=== PATIENT | female | born 1930 | race Caucasian/White ===

== ENCOUNTER 2017-07-20 21:06 | Observation (INO) | payer OTHER, BC ==
--- NOTE | 2017-07-21 00:40 | PDOC ---
History of Present Illness - General History Source: Patient Exam Limitations: No Limitations - History of Present Illness Initial Comments: 07/21/17 01:49 Patient is a 87 year old female with a significant past medical history of AFIB , HTN, esophageal varices, cirrhosis, hypothyroidism, and Peptic Ulcer Disease, who presents to the ED with complaints of bloody stool that began yesterday afternoon. Patient reports experiencing an intermittent cough for 1 week. Patient [place] and beginning to experience diffuse abdominal pain as well as bright red blood in stool. She reports experiencing 3 episodes of loose bright red stool yesterday and today. Patient reports experiencing left lower quadrant and right upper quadrant pain secondary to bloody stool. She reports PCP wanted her to receive a CT scan when she came into the ED. Denies nausea, vomiting. Denies chest pain, SOB. Denies change in appetite. Denies contact with sick individuals, out of state travelling. Denies any other symptoms. Allergies: bee venom (honey bee), meloxicam [From [employer]], shellfish derived, Social history: No smoking. No alcohol. No illicit drugs. Surgical history: Cholecystectomy PMD: Dr. Vish Adam. <Sean Mullen - Last Filed: 07/21/17 01:57> <Negar Feranndez - Last Filed: 07/22/17 02:20> - General Chief Complaint: Rectal Bleed Stated Complaint: BLOODY STOOL Time Seen by Provider: 07/21/17 00:09 Past History <Sean Mullen - Last Filed: 07/21/17 01:57> - Past Medical History Anemia: No Asthma: No Cancer: No Cardiac Disorders: (palpitations;ASHD) CVA: No COPD: No CHF: No Dementia: No Diabetes: No GI Disorders: Yes (gerd;PORTAL GASTROPATHY;DUODENAL ULCER;GASTRIC POLYPS;COLON POLYPS) Disorders: No HTN: Yes Hypercholesterolemia: Yes Liver Disease: Yes (liver cirrhosis) Seizures: No Thyroid Disease: Yes (hypothyroid) - Surgical History Abdominal Surgery: No Appendectomy: No Cardiac Surgery: No Cholecystectomy: Yes Lung Surgery: No Neurologic Surgery: Yes (lumbar compression fx, herniated disc) Orthopedic Surgery: Yes (RIGHT WRIST FX) - Immunization History Immunization Up to Date: Yes - Suicide/Smoking/Psychosocial Hx Smoking History: Never smoked Have you smoked in the past 12 months: No Number of Cigarettes Smoked Daily: 0 Information on smoking cessation initiated: No Hx Alcohol Use: No Drug/Substance Use Hx: No Substance Use Type: None Hx Substance Use Treatment: No <Negar Fernandez - Last Filed: 07/22/17 02:20> - Past Medical History Allergies/Adverse Reactions: Allergies Allergy/AdvReac Type Severity Reaction Status Date / Time meloxicam [From Mobic] Allergy Severe Swelling Verified 07/21/17 00:38 shellfish derived Allergy Severe Swelling Verified 07/21/17 00:38 venom-honey bee Allergy Severe Swelling Verified 07/21/17 00:38 [bee venom (honey bee)] Home Medications: Ambulatory Orders Carvedilol [Coreg -] 6.25 mg PO BID #30 tablet 02/07/14 Levothyroxine [Synthroid -] 50 mcg PO DAILY #30 tablet 02/07/14 Ursodiol [Actigal -] 300 mg PO TID #30 capsule 02/07/14 Ezetimibe [Zetia] 10 mg PO DAILY 03/07/14 Ranitidine [Zantac -] 150 mg PO BID #180 tablet 03/10/16 Diclofenac Sodium 100 gm TP DAILY 07/21/17 Abd/GI Specific PMHX - Complaint Specific PMHX GERD: Yes <Negar Fernandez - Last Filed: 07/22/17 02:20> Review of Systems - Review of Systems Able to Perform ROS?: Yes Comments:: 07/21/17 01:49 CONSTITUTIONAL: Absent: fever, chills, diaphoresis, generalized weakness, malaise, loss of appetite HEENT: Absent: rhinorrhea, nasal congestion, throat pain, throat swelling, difficulty swallowing, mouth swelling, ear pain, eye pain, visual Changes CARDIOVASCULAR: Absent: chest pain, syncope, palpitations, irregular heart rate, lightheadedness , peripheral edema RESPIRATORY: Absent: cough, shortness of breath, dyspnea with exertion, orthopnea, wheezing, stridor, hemoptysis GASTROINTESTINAL: Absent: abdominal pain, abdominal distension, nausea, vomiting, diarrhea, constipation, melena, hematochezia GENITOURINARY: Absent: dysuria, frequency, urgency, hesitancy, hematuria, flank pain, genital pain MUSCULOSKELETAL: Absent: myalgia, arthralgia, joint swelling SKIN: Absent: rash, itching, pallor HEMATOLOGIC/IMMUNOLOGIC: Absent: easy bleeding, easy bruising, lymphadenopathy, frequent infections ENDOCRINE: Absent: unexplained weight gain, unexplained weight loss, heat intolerance, cold intolerance NEUROLOGIC: Absent: headache, focal weakness or paresthesias, dizziness, unsteady gait, seizure, mental status changes, bladder or bowel incontinence PSYCHIATRIC: Absent: anxiety, depression, suicidal or homicidal ideation, hallucinations. All Other Systems: Reviewed and Negative <SebasSean - Last Filed: 07/21/17 01:57> *Physical Exam - Vital Signs Last Vital Signs Temp Pulse Resp BP Pulse Ox 98.5 F 62 16 167/72 97 07/20/17 22:05 07/20/17 22:05 07/20/17 22:05 07/20/17 22:05 07/20/17 22:05 - Physical Exam Comments: 07/21/17 01:57 GENERAL: Well developed, well nourished. Awake and alert. No acute distress. HEENT: Normocephalic, atraumatic. PERRLA, EOMI. No conjunctival pallor. Sclera are non- icteric. Moist mucous membranes. Oropharynx is clear. NECK: Supple. Full ROM. No JVD. Carotid pulses 2+ and symmetric, without bruits. No thyromegaly. No lymphadenopathy. CARDIOVASCULAR: +Slight murmur. Regular rate and rhythm. No murmurs, rubs, or gallops. Distal pulses are 2+ and symmetric. PULMONARY: No evidence of respiratory distress. Lungs clear to auscultation bilaterally. No wheezing, rales or rhonchi. ABDOMINAL: +Left lower quadrant pain. Soft. Non-tender. Non-distended. No rebound or guarding. No organomegaly. Normoactive bowel sounds. RECTAL: No stool in vault. No thrombosed hemorrhoids. No blood was appreciated MUSCULOSKELETAL: +Bruit. No JVD Normal range of motion at all joints. No bony deformities or tenderness. No CVA tenderness. EXTREMITIES: +Pedal edema. No pitting edema. No cyanosis. No clubbing.. No calf tenderness. SKIN: Warm and dry. Normal capillary refill. No rashes. No jaundice. NEUROLOGICAL: Alert, awake, appropriate. Cranial nerves 2-12 intact. No deficits to light touch and temperature in face, upper extremities and lower extremities. No motor deficits in the in face, upper extremities and lower extremities. Normoreflexic in the upper and lower extremities. Normal speech. Toes are down-going bilaterally. Gait is normal without ataxia. PSYCHIATRIC: Cooperative. Good eye contact. Appropriate mood and affect. <Sean Mullen - Last Filed: 07/21/17 01:57> - Vital Signs Last Vital Signs Temp Pulse Resp BP Pulse Ox 98.5 F 62 16 167/72 97 07/20/17 22:05 07/20/17 22:05 07/20/17 22:05 07/20/17 22:05 07/20/17 22:05 <Negar Fernandez - Last Filed: 07/22/17 02:20> ED Treatment Course - LABORATORY CBC & Chemistry Diagram: 07/21/17 09:30 07/21/17 01:47 <Negar Fernandez - Last Filed: 07/22/17 02:20> Medical Decision Making - Medical Decision Making 07/21/17 02:04 87 yo female brought in by daughter for rectal bleeding,loose stools x 6 and LLQ pain since Thursday -They called their Parts Salesperson Alex Oconnell and he wanted her to be admitted PMH significant for primary biliary cirrhosis with splenomegaly, thrombocytopenia. She has had banding of hemorrhoids, extensive gastric and paraesophegeal varicosities ,TAHBSO for fibroids,cholecytectomy,tonsilectomy and AFIB ( but does not take anticoagulation because of h/o GI bleeds Abd exam LLQ tenderness plan labs,ct scan abd/pel PCP Dr Ireland 07/21/17 02:12 <Negar Fernandez - Last Filed: 07/22/17 02:20> *DC/Admit/Observation/Transfer - Attestations Scribe Attestion: 07/21/17 01:49 Documentation prepared by Sean Mullen, acting as medical data analyst for Negar Fernandez MD/DO. <Sean Mullen - Last Filed: 07/21/17 01:57> <Negar Fernandez - Last Filed: 07/22/17 02:20> Diagnosis at time of Disposition: GI bleed
[2017-07-21] MEDS ORDERED: PANTOPRAZOLE SODIUM 40 MG in SODIUM CHLORIDE 100 ML IVPB ONE (00:42)
[2017-07-21] MEDS ORDERED: SODIUM CHLORIDE 250 ML IV STA (00:59)
[2017-07-21] MEDS ORDERED: PANTOPRAZOLE SODIUM 40 MG VIAL ONE (01:36)
[2017-07-21 02:17] LABS: BASO % 0.4 % (0-2.0); EOS % 8.2 % (0-4.5); HEMATOCRIT 29.3 % (32.4-45.2); HEMOGLOBIN 9.9 GM/dL (10.7-15.3); LYMPH % 34.8 % (8-40); MCH 30.9 pg (25.7-33.7); MCHC 33.8 g/dl (32.0-36.0); MEAN CELL VOLUME 91.3 fl (80-96); MONO % 14.8 % (3.8-10.2); NEUT % 41.8 % (42.8-82.8); PLATELET COUNT 49 K/MM3 (134-434); RBC 3.21 M/mm3 (3.60-5.2); RDW 13.8 % (11.6-15.6); WHITE BLOOD COUNT 2.9 K/mm3 (4.0-10.0)
[2017-07-21 02:20] LABS: INR 1.35 (0.82-1.09); PROTHROMBIN TIME (PATIENT) 15.3 SEC (9.98-11.88)
[2017-07-21 02:31] LABS: ALBUMIN 3.1 g/dl (3.4-5.0); ALK PHOS 112 U/L (45-117); ANION GAP 8 (8-16); BILIRUBIN,TOTAL 0.6 mg/dL (0.2-1.0); BLOOD UREA NITROGEN 29 mg/dL (7-18); CALCIUM 8.6 mg/dL (8.5-10.1); CHLORIDE 109 mmol/L (98-107); CO2 25 mmol/L (21-32); CREATININE 0.9 mg/dL (0.55-1.02); GLUCOSE,RANDOM 128 mg/dL (74-106); POTASSIUM 3.8 mmol/L (3.5-5.1); SGOT/AST 27 U/L (15-37); SGPT/ALT 27 U/L (12-78); SODIUM 142 mmol/L (136-145); TOT PROT 6.6 g/dl (6.4-8.2)
[2017-07-21 03:26] LABS: RETICULOCYTES 1.68 % (0.5-1.5)
--- NOTE | 2017-07-21 05:42 | PDOC ---
*Physical Exam - Vital Signs Last Vital Signs Temp Pulse Resp BP Pulse Ox 98.5 F 62 16 167/72 97 07/20/17 22:05 07/20/17 22:05 07/20/17 22:05 07/20/17 22:05 07/20/17 22:05 <Serjio Péreznickemily - Last Filed: 07/21/17 05:43> - Vital Signs Last Vital Signs Temp Pulse Resp BP Pulse Ox 98.5 F 62 16 167/72 97 07/20/17 22:05 07/20/17 22:05 07/20/17 22:05 07/20/17 22:05 07/20/17 22:05 - Physical Exam General Appearance: Yes: Nourished, Appropriately Dressed. No: Apparent Distress Respiratory/Chest: positive: Normal Breath Sounds. negative: Respiratory Distress Gastrointestinal/Abdominal: negative: Tender Neurologic: positive: Alert, Normal Mood/Affect, Normal Response <Olga Elder - Last Filed: 07/27/17 18:08> ED Treatment Course - LABORATORY CBC & Chemistry Diagram: 07/21/17 01:47 07/21/17 01:47 - ADDITIONAL ORDERS Additional order review: Laboratory Results 07/21/17 07/21/17 07/21/17 01:53 01:47 01:47 PT with INR INR Sodium Potassium Chloride Carbon Dioxide Anion Gap BUN Creatinine Creat Clearance w eGFR Random Glucose Calcium Total Bilirubin AST ALT Alkaline Phosphatase Creatine Kinase 28 Troponin I < 0.02 Total Protein Albumin Stool Occult Blood Negative Blood Type O POSITIVE Antibody Screen Negative 07/21/17 07/21/17 01:47 01:47 PT with INR 15.30 H INR 1.35 H Sodium 142 Potassium 3.8 Chloride 109 H Carbon Dioxide 25 Anion Gap 8 BUN 29 H Creatinine 0.9 Creat Clearance w eGFR 59.51 Random Glucose 128 H Calcium 8.6 Total Bilirubin 0.6 D AST 27 ALT 27 Alkaline Phosphatase 112 Creatine Kinase Troponin I Total Protein 6.6 Albumin 3.1 L Stool Occult Blood Blood Type Antibody Screen 07/21/17 01:47 RBC 3.21 L MCV 91.3 MCHC 33.8 RDW 13.8 MPV 10.0 Neutrophils % 41.8 L Lymphocytes % 34.8 Monocytes % 14.8 H Eosinophils % 8.2 H Basophils % 0.4 - RADIOLOGY Radiograph Interpretation: 07/21/17 05:43 EXAM: CT ABDOMEN AND PELVIS WITH CONTRAST FINDINGS: 1 cm slightly complex cystic lesion pancreatic tail, advise followup. No diverticulosis or acute diverticulitis. No bowel obstruction, colitis, or free air. Appendix not seen. No pericecal inflammation to suggest acute appendicitis. Cirrhotic liver. Minimal splenomegaly and paraesophageal and right lower quadrant varices, consistent with portal hypertension. Bilateral renal cysts.Cholecystectomy. Moderate extrahepatic biliary dilatation , greater than expected for postcholecystectomy state. Trace ascites. Small umbilical and bilateral inguinal region hernias containing fat. Right inguinal region hernia also contains small free fluid. Hysterectomy. Small reticulondular densities right lower lobe, question chronic interstitial changes versus atypical infection. Partial atelectasis left lower lobe. Chronic compression fracture T12 Reported by: Imaging correspondence section supervisor - Medications Given in the ED: ED Medications Discontinued Medications Generic Name Dose Route Start Last Admin Trade Name Freq PRN Reason Stop Dose Admin Pantoprazole Sodium 40 mg/ 100 mls @ 200 mls/hr 07/21/17 00:42 07/21/17 01:49 Sodium Chloride IVPB 07/21/17 01:11 200 mls/hr ONCE ONE Administration Sodium Chloride 250 mls @ 500 mls/hr 07/21/17 00:59 07/21/17 01:49 Normal Saline - IV 07/21/17 01:28 500 mls/hr ASDIR STA Administration <Fani Pérez - Last Filed: 07/21/17 05:43> - LABORATORY CBC & Chemistry Diagram: 07/22/17 06:00 07/22/17 06:00 - ADDITIONAL ORDERS Additional order review: Laboratory Results 07/21/17 07/21/17 07/21/17 01:53 01:47 01:47 PT with INR INR Sodium Potassium Chloride Carbon Dioxide Anion Gap BUN Creatinine Creat Clearance w eGFR Random Glucose Calcium Total Bilirubin AST ALT Alkaline Phosphatase Creatine Kinase 28 Troponin I < 0.02 Total Protein Albumin Stool Occult Blood Negative Blood Type O POSITIVE Antibody Screen Negative 07/21/17 07/21/17 01:47 01:47 PT with INR 15.30 H INR 1.35 H Sodium 142 Potassium 3.8 Chloride 109 H Carbon Dioxide 25 Anion Gap 8 BUN 29 H Creatinine 0.9 Creat Clearance w eGFR 59.51 Random Glucose 128 H Calcium 8.6 Total Bilirubin 0.6 D AST 27 ALT 27 Alkaline Phosphatase 112 Creatine Kinase Troponin I Total Protein 6.6 Albumin 3.1 L Stool Occult Blood Blood Type Antibody Screen 07/21/17 01:47 RBC 3.21 L MCV 91.3 MCHC 33.8 RDW 13.8 MPV 10.0 Neutrophils % 41.8 L Lymphocytes % 34.8 Monocytes % 14.8 H Eosinophils % 8.2 H Basophils % 0.4 - Medications Given in the ED: ED Medications Discontinued Medications Generic Name Dose Route Start Last Admin Trade Name Carroll PRN Reason Stop Dose Admin Pantoprazole Sodium 40 mg/ 100 mls @ 200 mls/hr 07/21/17 00:42 07/21/17 01:49 Sodium Chloride IVPB 07/21/17 01:11 200 mls/hr ONCE ONE Administration Sodium Chloride 250 mls @ 500 mls/hr 07/21/17 00:59 07/21/17 01:49 Normal Saline - IV 07/21/17 01:28 500 mls/hr ASDIR STA Administration <Olga Elder - Last Filed: 07/27/17 18:08> Medical Decision Making - Medical Decision Making 07/21/17 06:59 Assumed care of pt at 2am from Dr. Fernandez. Pt with reported rectal bleed, hx varices, hemorrhoids. CT unrevealing as to cause of bleed. Plan per Dr. Fernandez was to admit pt for observation due to rectal bleeding/high risk pt. Will trend H&H and admit. Pt currently feeling well, not reporting any further BMs, no current pain. She is aware of plan to admit her. Admitting physician asking for surgical consult, he was paged and made aware of pt. <Olga Elder - Last Filed: 07/27/17 18:08> *DC/Admit/Observation/Transfer <Fani Pérez - Last Filed: 07/21/17 05:43> - Discharge Dispostion Admit: Yes <Olga Elder - Last Filed: 07/27/17 18:08> Diagnosis at time of Disposition: GI bleed - Discharge Dispostion Disposition: HOME Condition at time of disposition: Improved
--- NOTE | 2017-07-21 09:31 | HP ---
Admitting History and Physical - Primary Care Physician PCP: Jair Wahl - Admission Chief Complaint: Brighr red blood [place] History of Present Illness: 87 yrs old pleasant F multiple medical co-morbidities H/O Chronic anemia, PBC, spleenomegaly chronic thrombocytopenia around 50 K, Portal Gastropathy, Diverticulosis, Hemmorhoids s/p Band ligation recurrent lower GI bleeding, Paroxysmal Afib not on AC due to risk of bleeding, yesterday prent with c/o mild lower abd discomfort and 3 episodes of Bright Red Blood [place], patient is recovering from URTI ,all labs are at base line H/H Platelete count at base line, CT bad with IV Contrast doesn't show any acute pathology to explain BRBPR. - Past Medical History Cardiovascular: Yes: HTN Gastrointestinal: Yes: Esophageal Varices, Peptic Ulcer Disease Hepatobiliary: Yes: Cirrhosis Endocrine: Yes: Hypothyroidism - Past Surgical History Past Surgical History: Yes: Cholecystectomy - Smoking History Smoking history: Never smoked Have you smoked in the past 12 months: No Aproximately how many cigarettes per day: 0 - Alcohol/Substance Use Hx Alcohol Use: No - Social History ADL: Family Assistance History of Recent Travel: No Home Medications - Allergies Allergies/Adverse Reactions: Allergies Allergy/AdvReac Type Severity Reaction Status Date / Time meloxicam [From Mobic] Allergy Severe Swelling Verified 07/21/17 00:38 shellfish derived Allergy Severe Swelling Verified 07/21/17 00:38 venom-honey bee Allergy Severe Swelling Verified 07/21/17 00:38 [bee venom (honey bee)] - Home Medications Home Medications: Ambulatory Orders Carvedilol [Coreg -] 6.25 mg PO BID #30 tablet 02/07/14 Levothyroxine [Synthroid -] 50 mcg PO DAILY #30 tablet 02/07/14 Ursodiol [Actigal -] 300 mg PO TID #30 capsule 02/07/14 Ezetimibe [Zetia] 10 mg PO DAILY 03/07/14 Ranitidine [Zantac -] 150 mg PO BID #180 tablet 03/10/16 Diclofenac Sodium 100 gm TP DAILY 07/21/17 Family Disease History - Family Disease History Family History: Unremarkable Review of Systems - Review of Systems Constitutional: reports: Malaise. denies: Chills, Diaphoresis, Fever Eyes: denies: Blurred Vision, Double Vision HENT: denies: Difficult Swallowing, Ear Discharge, Epistaxis Neck: denies: Decreased ROM, Lumps Cardiovascular: denies: Chest Pain, Edema Respiratory: denies: Cough, Exercise Intolerance Genitourinary: denies: Burning, Discharge Musculoskeletal: reports: Back Pain. denies: Crepitus, Decreased ROM Integumentary: denies: Blister, Bruising Neurological: denies: Change in LOC, Change in Speech, Confusion Endocrine: denies: Excessive Sweating, Flushing, Increased Hunger, Unexplained Weight Loss Psychiatric: reports: No Symptoms Physical Examination Vital Signs: Vital Signs Temperature 97.4 F L 07/21/17 07:03 Pulse Rate 68 07/21/17 07:03 Respiratory Rate 16 07/21/17 07:03 Blood Pressure 182/71 07/21/17 07:03 O2 Sat by Pulse Oximetry (%) 98 07/21/17 07:03 Elderly F not in distress HEENT: Mm moist, no anemia, PERRLA< EOMI NECK: No JVD No Bruit CHEST: CTA B/L ABD: No distention, non tender, BS + EXT: Edema feet +, no calf tenderness, Pulses + LOTTERIES AGENT: Aox3 non focal Labs: CBC, BMP 07/21/17 01:47 07/21/17 01:47 Laboratory Results - last 24 hr 07/21/17 07/21/17 07/21/17 01:47 01:47 01:47 WBC 2.9 L RBC 3.21 L Hgb 9.9 L Hct 29.3 L MCV 91.3 MCH 30.9 MCHC 33.8 RDW 13.8 Plt Count 49 L MPV 10.0 Neutrophils % 41.8 L Lymphocytes % 34.8 Monocytes % 14.8 H Eosinophils % 8.2 H Basophils % 0.4 Retic Count 1.68 H D PT with INR 15.30 H INR 1.35 H Sodium 142 Potassium 3.8 Chloride 109 H Carbon Dioxide 25 Anion Gap 8 BUN 29 H Creatinine 0.9 Creat Clearance w eGFR 59.51 Random Glucose 128 H Calcium 8.6 Total Bilirubin 0.6 D AST 27 ALT 27 Alkaline Phosphatase 112 Creatine Kinase Troponin I Total Protein 6.6 Albumin 3.1 L Stool Occult Blood Blood Type Antibody Screen 07/21/17 07/21/17 07/21/17 01:47 01:47 01:53 WBC RBC Hgb Hct MCV MCH MCHC RDW Plt Count MPV Neutrophils % Lymphocytes % Monocytes % Eosinophils % Basophils % Retic Count PT with INR INR Sodium Potassium Chloride Carbon Dioxide Anion Gap BUN Creatinine Creat Clearance w eGFR Random Glucose Calcium Total Bilirubin AST ALT Alkaline Phosphatase Creatine Kinase 28 Troponin I < 0.02 Total Protein Albumin Stool Occult Blood Negative Blood Type O POSITIVE Antibody Screen Negative Imaging - Results Cat Scan: Report Reviewed (ABD: No diverticulosis or acute diverticulitis. No bowel obstruction, colitis, or free air. Appendix not seen. No pericecal inflammation to suggest acute appendicitis. Cirrhotic liver. Minimal splenomegaly and paraesophageal and right lower quadrant varices, consistent with portal hypertension. Bilateral renal cysts.Cholecystectomy. Moderate extrahepatic biliary dilatation, greater than expected for postcholecystectomy state. Trace ascites. Small umbilical and bilateral inguinal region hernias containing fat. Right inguinal region hernia also contains small free fluid. Hysterectomy. Small reticulondular densities right lower lobe, question chronic interstitial changes versus atypical infection. Partial atelectasis left lower lobe. Chronic compression fracture T12) Problem List - Problems (1) Lower GI bleed Assessment/Plan: Due to hemorrhoid or Diverticlosis H/H stable platelet count is stable Code(s): K92.2 - GASTROINTESTINAL HEMORRHAGE, UNSPECIFIED (2) Primary biliary cirrhosis Assessment/Plan: Stable cont home meds Code(s): K74.3 - PRIMARY BILIARY CIRRHOSIS (3) Thrombocytopenia Assessment/Plan: Stable due to cirrhosis Code(s): D69.6 - THROMBOCYTOPENIA, UNSPECIFIED (4) Chronic anemia Assessment/Plan: Due to PCB H/H stable Code(s): D64.9 - ANEMIA, UNSPECIFIED (5) Hypothyroidism Assessment/Plan: TSH < 5 cont levothyroxine Code(s): E03.9 - HYPOTHYROIDISM, UNSPECIFIED (6) HTN (hypertension) Assessment/Plan: Well controlled cont home meds Code(s): I10 - ESSENTIAL (PRIMARY) HYPERTENSION (7) Paroxysmal atrial fibrillation Assessment/Plan: Now on AC not a candidate for AC Code(s): I48.0 - PAROXYSMAL ATRIAL FIBRILLATION
[2017-07-21 09:43] LABS: BASO % 0.6 % (0-2.0); EOS % 8.6 % (0-4.5); HEMATOCRIT 29.1 % (32.4-45.2); HEMOGLOBIN 9.7 GM/dL (10.7-15.3); LYMPH % 39.3 % (8-40); MCH 30.4 pg (25.7-33.7); MCHC 33.4 g/dl (32.0-36.0); MEAN CELL VOLUME 90.9 fl (80-96); MEAN PLT VOLUME 9.3 fl (7.5-11.1); MONO % 15.2 % (3.8-10.2); NEUT % 36.3 % (42.8-82.8); PLATELET COUNT 44 K/MM3 (134-434); RDW 13.7 % (11.6-15.6); WHITE BLOOD COUNT 2.4 K/mm3 (4.0-10.0)
[2017-07-21] MEDS: EZETIMIBE 10 MG TABLET (FP) PO SCH (11:04)
[2017-07-21] MEDS: CARVEDILOL 6.25 MG TABLET (FP) PO SCH ×2 (11:04→22:21)
[2017-07-21] MEDS: LEVOTHYROXINE NA 50 MCG TABLET (FP) PO SCH (11:04)
[2017-07-21 11:50] VITALS: BMI 27.9
[2017-07-21] MEDS: URSODIOL 300 MG CAPSULE PO SCH ×2 (15:00→22:21)
--- NOTE | 2017-07-21 16:00 | CON.GI ---
Consult Consult Specialty:: Gastroenterology Referred by:: Dr Wahl Reason for Consultation:: Rectal bleeding - History of Present Illness Chief Complaint: Rectal bleeding History of Present Illness: 87F developed hematochezia 2 days ago. She had a single episode of rectal bleeding 2 days ago and again yesterday but has had no bleeding today. She has LLQ colicky pain yesterday but none today. She does admit to being constipated and had passed a hard stool that seemed to trigger her bleeding. CT scan reveals cirrhosis and diffuse varices but no hepatic masses or ascites. No evidence of ischemic colitis. 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 her mother and a son of colon cancer. Her last colonoscopy in 11/09 led to the removal of an adenoma and to rubber band ligation of bleeding hemorrhoids. Diverticulosis was noted. her last EGD was done in 03/14 and revealed portal gastropathy but no varices. 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 Portal gastropathy. Colon adenoma. Benign gastric polyps. ) Hepatobiliary: Yes: Cirrhosis (Primary Biliary Cirrhosis, liver biopsy bleed with pierced lung) Heme/Onc: Yes: Anemia Musculoskeletal: Yes: Chronic low back pain (T10-11 vertebral fracture. L5 herniated disc.), Osteoarthritis Endocrine: Yes: Hypothyroidism - Past Surgical History Past Surgical History: Yes: Cholecystectomy, Colonoscopy, Hysterectomy (TAHBSO for bleeding fibroids), Tonsillectomy (complicated by hemorrhage), Upper Endoscopy Additional Surgical History: Right wrist fracture surgery - Alcohol/Substance Use Hx Alcohol Use: No History of Substance Use: reports: None - Smoking History Smoking history: Never smoked Have you smoked in the past 12 months: No Aproximately how many cigarettes per day: 0 - Social History Usual Living Arrangement: With Spouse ADL: Family Assistance 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 Place of : [facility] History of Recent Travel: No Home Medications - Allergies Allergies/Adverse Reactions: Allergies Allergy/AdvReac Type Severity Reaction Status Date / Time meloxicam [From Mobic] Allergy Severe Swelling Verified 07/21/17 00:38 shellfish derived Allergy Severe Swelling Verified 07/21/17 00:38 venom-honey bee Allergy Severe Swelling Verified 07/21/17 00:38 [bee venom (honey bee)] - Home Medications Home Medications: Ambulatory Orders Carvedilol [Coreg -] 6.25 mg PO BID #30 tablet 02/07/14 Levothyroxine [Synthroid -] 50 mcg PO DAILY #30 tablet 02/07/14 Ursodiol [Actigal -] 300 mg PO TID #30 capsule 02/07/14 Ezetimibe [Zetia] 10 mg PO DAILY 03/07/14 Ranitidine [Zantac -] 150 mg PO BID #180 tablet 03/10/16 Diclofenac Sodium 100 gm TP DAILY 07/21/17 Family Disease History - Family Disease History Family Disease History: CA: Father (lung cancer), Mother (colon cancer age 65), Brother (prostate cancer), Sister (lung cancer), Son (colon cancer age 40), Other: Daughter (thyroid disease x 3 daughters) Review of Systems - Review of Systems Constitutional: reports: No Symptoms Eyes: reports: No Symptoms HENT: reports: No Symptoms Neck: reports: No Symptoms Cardiovascular: reports: No Symptoms Respiratory: reports: No Symptoms Gastrointestinal: reports: Abdominal Pain, Rectal Bleeding Genitourinary: reports: No Symptoms Integumentary: reports: No Symptoms Neurological: reports: No Symptoms Hematology/Lymphatic: reports: Easily Bruised Psychiatric: reports: No Symptoms Physical Exam-GI Vital Signs: Vital Signs Temperature 98.4 F 07/21/17 12:20 Pulse Rate 58 L 07/21/17 12:20 Respiratory Rate 20 07/21/17 12:20 Blood Pressure 154/74 07/21/17 12:20 O2 Sat by Pulse Oximetry (%) 99 07/21/17 12:20 Laboratory Tests 11/12/13 11/14/13 11/15/13 21:18 07:00 06:00 Hgb 10.3 L Plt Count Retic Count 2.01 H PT with INR Tumor Marker AFP 3.6 CA 19-9 Antigen 17 01/19/14 02/05/14 11/15/14 05:45 16:45 07:20 Hgb 7.9 L* D 11.1 D 11.4 Plt Count Retic Count PT with INR Tumor Marker AFP CA 19-9 Antigen 09/06/15 03/20/17 07/21/17 11:50 11:28 01:47 Hgb 10.2 L D 11.0 9.9 L Plt Count Retic Count 1.68 H D PT with INR Tumor Marker AFP CA 19-9 Antigen 07/21/17 07/21/17 01:47 09:30 Hgb 9.7 L Plt Count 44 L Retic Count PT with INR 15.30 H Tumor Marker AFP CA 19-9 Antigen Current Medications Generic Name Dose Route Start Last Admin Trade Name Freq PRN Reason Stop Dose Admin Carvedilol 6.25 mg 07/21/17 10:00 07/21/17 11:04 Coreg - PO 6.25 mg BID [facility] Administration Ezetimibe 10 mg 07/21/17 10:00 07/21/17 11:04 Zetia - PO 10 mg DAILY [facility] Administration Levothyroxine Sodium 50 mcg 07/21/17 10:00 07/21/17 11:04 Synthroid - PO 50 mcg DAILY@0700 [facility] Administration Ursodiol 300 mg 07/21/17 14:00 Actigal - PO TID [facility] CBC,CMP WBC 2.4 K/mm3 (4.0-10.0) L 07/21/17 09:30 RBC 3.20 M/mm3 (3.60-5.2) L 07/21/17 09:30 Hgb 9.7 GM/dL (10.7-15.3) L 07/21/17 09:30 Hct 29.1 % (32.4-45.2) L 07/21/17 09:30 MCV 90.9 fl (80-96) 07/21/17 09:30 MCH 30.4 pg (25.7-33.7) 07/21/17 09:30 MCHC 33.4 g/dl (32.0-36.0) 07/21/17 09:30 RDW 13.7 % (11.6-15.6) 07/21/17 09:30 Plt Count 44 K/MM3 (134-434) L 07/21/17 09:30 MPV 9.3 fl (7.5-11.1) 07/21/17 09:30 Neutrophils % 36.3 % (42.8-82.8) L 07/21/17 09:30 Lymphocytes % 39.3 % (8-40) 07/21/17 09:30 Monocytes % 15.2 % (3.8-10.2) H 07/21/17 09:30 Eosinophils % 8.6 % (0-4.5) H 07/21/17 09:30 Basophils % 0.6 % (0-2.0) 07/21/17 09:30 Retic Count 1.68 % (0.5-1.5) H D 07/21/17 01:47 Sodium 142 mmol/L (136-145) 07/21/17 01:47 Potassium 3.8 mmol/L (3.5-5.1) 07/21/17 01:47 Chloride 109 mmol/L (98-107) H 07/21/17 01:47 Carbon Dioxide 25 mmol/L (21-32) 07/21/17 01:47 Anion Gap 8 (8-16) 07/21/17 01:47 BUN 29 mg/dL (7-18) H 07/21/17 01:47 Creatinine 0.9 mg/dL (0.55-1.02) 07/21/17 01:47 Creat Clearance w eGFR 59.51 (>60) 07/21/17 01:47 Random Glucose 128 mg/dL (74-106) H 07/21/17 01:47 Calcium 8.6 mg/dL (8.5-10.1) 07/21/17 01:47 Total Bilirubin 0.6 mg/dL (0.2-1.0) D 07/21/17 01:47 AST 27 U/L (15-37) 07/21/17 01:47 ALT 27 U/L (12-78) 07/21/17 01:47 Alkaline Phosphatase 112 U/L (45-117) 07/21/17 01:47 Creatine Kinase 28 IU/L (26-192) 07/21/17 01:47 Troponin I < 0.02 ng/ml (0.00-0.05) 07/21/17 01:47 Total Protein 6.6 g/dl (6.4-8.2) 07/21/17 01:47 Albumin 3.1 g/dl (3.4-5.0) L 07/21/17 01:47 Constitutional: Yes: No Distress Eyes: Yes: Conjunctiva Clear HENT: Yes: Atraumatic Neck: Yes: Trachea Midline Cardiovascular: Yes: Regular Rate and Rhythm Respiratory: Yes: CTA Bilaterally Gastrointestinal Inspection: Yes: Scars (healed lap choly and Pfannensteil incisions) ...Auscultate: Yes: Normoactive Bowel Sounds ...Palpate: Yes: Soft, Other (nontender) ...Rectal Exam: Yes: Guaiac Negative (brown hard stool), Hemorrhoids/External, Sphincter Tone Normal Edema: LUE: 1+, RUE: 1+ Neurological: Yes: Alert, Oriented Labs: CBC, BMP 07/21/17 09:30 07/21/17 01:47 INR, PTT INR 1.35 (0.82-1.09) H 07/21/17 01:47 Imaging - Results Cat Scan: Image Reviewed (cirrhosis but no liver masses, no colitis, no ascites) Problem List - Problems (1) Colon adenoma Assessment/Plan: Given her personal h/o a colon adenoma and strong FH of colon cancer Yessica Nelson should ideally undergo a repeat surveillance. her coagulopathya nd thrombocytopenia however preclude doing a polypectomy safely so will forego any further colonoscopy. She is agreeable with this. I also discussed this with her daughter Marisela. Code(s): D12.6 - BENIGN NEOPLASM OF COLON, UNSPECIFIED (2) Portal hypertensive gastropathy Code(s): K31.89 - OTHER DISEASES OF STOMACH AND DUODENUM (3) History of bleeding peptic ulcer Assessment/Plan: Continue PPI therapy to prevent recurrence Code(s): Z87.11 - PERSONAL HISTORY OF PEPTIC ULCER DISEASE (4) Coagulopathy Code(s): D68.9 - COAGULATION DEFECT, UNSPECIFIED (5) Primary biliary cirrhosis Assessment/Plan: Continue Actigall. Fortunately no sign of a hepatoma but will order AFP. Code(s): K74.3 - PRIMARY BILIARY CIRRHOSIS (6) GI bleed Assessment/Plan: Given it's self limited nature I believe that Yessica Nelson's bleeding is hemorrhoidal in origin. It seems to have stopped and to have been triggered by a hard stool. Will start Miralax. If bleeding persists may need to consider repeat hemorrhoidal banding. If it stops, can consider discharge tomorrow. Will advance diet. Code(s): K92.2 - GASTROINTESTINAL HEMORRHAGE, UNSPECIFIED
--- NOTE | 2017-07-21 19:27 | CONSULT ---
Consult Consult Specialty:: Surgery Reason for Consultation:: Rectal bleeding. - History of Present Illness Chief Complaint: 87 year old woman is admitted with bright red rectal bleeding for 2 days. Patient had very little bleeding today, ? spotting of blood as per the patient. History of Present Illness: Patient is known to have liver vcirrhosis, gastropathy, s/p banding of the hemorrhoid, has thrombocyto[penia.. S/P cholecystectomy. 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 Portal gastropathy. Colon adenoma. Benign gastric polyps. ) Hepatobiliary: Yes: Cirrhosis (Primary Biliary Cirrhosis, liver biopsy bleed with pierced lung) Musculoskeletal: Yes: Chronic low back pain (T10-11 vertebral fracture. L5 herniated disc.), Osteoarthritis Endocrine: Yes: Hypothyroidism - Past Surgical History Past Surgical History: Yes: Cholecystectomy, Colonoscopy, Hysterectomy (TAHBSO for bleeding fibroids), Tonsillectomy (complicated by hemorrhage), Upper Endoscopy Additional Surgical History: Right wrist fracture surgery - Alcohol/Substance Use Hx Alcohol Use: No History of Substance Use: reports: None - Smoking History Smoking history: Never smoked Have you smoked in the past 12 months: No Aproximately how many cigarettes per day: 0 - Social History Usual Living Arrangement: With Spouse ADL: Family Assistance 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 History of Recent Travel: No Home Medications - Allergies Allergies/Adverse Reactions: Allergies Allergy/AdvReac Type Severity Reaction Status Date / Time meloxicam [From Mobic] Allergy Severe Swelling Verified 07/21/17 00:38 shellfish derived Allergy Severe Swelling Verified 07/21/17 00:38 venom-honey bee Allergy Severe Swelling Verified 07/21/17 00:38 [bee venom (honey bee)] - Home Medications Home Medications: Ambulatory Orders Carvedilol [Coreg -] 6.25 mg PO BID #30 tablet 02/07/14 Levothyroxine [Synthroid -] 50 mcg PO DAILY #30 tablet 02/07/14 Ursodiol [Actigal -] 300 mg PO TID #30 capsule 02/07/14 Ezetimibe [Zetia] 10 mg PO DAILY 03/07/14 Ranitidine [Zantac -] 150 mg PO BID #180 tablet 03/10/16 Diclofenac Sodium 100 gm TP DAILY 07/21/17 Family Disease History - Family Disease History Family Disease History: CA: Father (lung cancer), Mother (colon cancer age 65), Brother (prostate cancer), Sister (lung cancer), Son (colon cancer age 40), Other: Daughter (thyroid disease x 3 daughters) Physical Exam Vital Signs: Vital Signs Temperature 97.9 F 07/21/17 18:10 Pulse Rate 61 07/21/17 18:10 Respiratory Rate 20 07/21/17 18:10 Blood Pressure 183/85 07/21/17 18:10 O2 Sat by Pulse Oximetry (%) 99 07/21/17 17:00 Labs: CBC, BMP 07/21/17 09:30 07/21/17 01:47 Problem List - Problems (1) Rectal bleeding Code(s): K62.5 - HEMORRHAGE OF ANUS AND RECTUM (2) Primary biliary cirrhosis Code(s): K74.3 - PRIMARY BILIARY CIRRHOSIS (3) Thrombocytopenia Code(s): D69.6 - THROMBOCYTOPENIA, UNSPECIFIED (4) Chronic anemia Code(s): D64.9 - ANEMIA, UNSPECIFIED (5) Coagulopathy Code(s): D68.9 - COAGULATION DEFECT, UNSPECIFIED (6) Paroxysmal atrial fibrillation Code(s): I48.0 - PAROXYSMAL ATRIAL FIBRILLATION (7) Portal hypertensive gastropathy Code(s): K31.89 - OTHER DISEASES OF STOMACH AND DUODENUM (8) Bradycardia Code(s): R00.1 - BRADYCARDIA, UNSPECIFIED Assessment/Plan Patient does not have active rectal bleeding and has pancytopenia, and coagulopathic. She is not a candidate for any major intervention. If coagulopathy is corrected and she is still bleeding , and dropping her hematocrit , can consider ligation and injection of sclerosant.
[2017-07-21] MEDS: POLYETHYLENE GLYCOL 3350 119 GM BTL PO SCH (22:20)
[2017-07-22 02:48] VITALS: TEMP 97.9
[2017-07-22] MEDS: LEVOTHYROXINE NA 50 MCG TABLET (FP) PO SCH (06:29)
[2017-07-22] MEDS: URSODIOL 300 MG CAPSULE PO SCH ×2 (06:29→13:16)
[2017-07-22 07:49] LABS: CHLORIDE 111 mmol/L (98-107); POTASSIUM 3.8 mmol/L (3.5-5.1); SODIUM 144 mmol/L (136-145)
[2017-07-22 07:54] LABS: BASO % 0.5 % (0-2.0); EOS % 6.9 % (0-4.5); HEMATOCRIT 27.8 % (32.4-45.2); HEMOGLOBIN 9.3 GM/dL (10.7-15.3); LYMPH % 37.6 % (8-40); MCH 30.3 pg (25.7-33.7); MCHC 33.4 g/dl (32.0-36.0); MEAN CELL VOLUME 90.6 fl (80-96); MEAN PLT VOLUME 9.6 fl (7.5-11.1); MONO % 11.8 % (3.8-10.2); NEUT % 43.2 % (42.8-82.8); PLATELET COUNT 51 K/MM3 (134-434); RBC 3.07 M/mm3 (3.60-5.2); RDW 13.9 % (11.6-15.6); WHITE BLOOD COUNT 2.6 K/mm3 (4.0-10.0)
[2017-07-22 08:07] LABS: ALBUMIN 2.8 g/dl (3.4-5.0); ALK PHOS 92 U/L (45-117); ANION GAP 7 (8-16); BILIRUBIN,TOTAL 0.6 mg/dL (0.2-1.0); BLOOD UREA NITROGEN 21 mg/dL (7-18); CALCIUM 8.1 mg/dL (8.5-10.1); CO2 26 mmol/L (21-32); CREATININE 0.9 mg/dL (0.55-1.02); GLUCOSE,RANDOM 82 mg/dL (74-106); SGOT/AST 21 U/L (15-37); SGPT/ALT 23 U/L (12-78); TOT PROT 5.9 g/dl (6.4-8.2)
--- NOTE | 2017-07-22 08:10 | EKG ---
Test Reason : Blood Pressure : / mmHG Vent. Rate : 059 BPM Atrial Rate : 058 BPM P-R Int : 000 ms QRS Dur : 100 ms QT Int : 458 ms P-R-T Axes : 000 -28 030 degrees QTc Int : 453 ms nsr 1st degree avb MINIMAL VOLTAGE CRITERIA FOR LVH, MAY BE NORMAL VARIANT NONSPECIFIC ST ABNORMALITY ABNORMAL ECG Confirmed by BURT NEGRETE MD ([id number]) on 07/22/2017 8:10:26 AM Referred By: Confirmed By:BURT NEGRETE MD
[2017-07-22 09:02] VITALS: BP 154/60; PULSE 68
[2017-07-22] MEDS: EZETIMIBE 10 MG TABLET (FP) PO SCH (09:23)
[2017-07-22] MEDS: CARVEDILOL 6.25 MG TABLET (FP) PO SCH (09:23)
[2017-07-22] MEDS: POLYETHYLENE GLYCOL 3350 119 GM BTL PO SCH ×2 (09:23→09:35)
[2017-07-22] MEDS ORDERED: PANTOPRAZOLE 40 MG TABLET (FP) PO SCH (10:00)
--- NOTE | 2017-07-22 11:35 | PN ---
Progress Note, Physician - Current Medication List Current Medications: Active Medications Carvedilol (Coreg -) 6.25 mg PO BID [facility] Last Admin: 07/22/17 09:23 Dose: 6.25 mg Ezetimibe (Zetia -) 10 mg PO DAILY [facility] Last Admin: 07/22/17 09:23 Dose: 10 mg Levothyroxine Sodium (Synthroid -) 50 mcg PO DAILY@0700 [facility] Last Admin: 07/22/17 06:29 Dose: 50 mcg Pantoprazole Sodium (Protonix -) 40 mg PO DAILY [facility] Last Admin: 07/22/17 09:23 Dose: 40 mg Polyethylene Glycol (Miralax (For Daily Use) -) 17 gm PO BID [facility] Last Admin: 07/22/17 09:35 Dose: Not Given Ursodiol (Actigal -) 300 mg PO TID [facility] Last Admin: 07/22/17 06:29 Dose: 300 mg - Objective Vital Signs: Vital Signs Temperature 97.9 F 07/22/17 09:01 Pulse Rate 68 07/22/17 09:01 Respiratory Rate 20 07/22/17 09:01 Blood Pressure 154/60 07/22/17 09:01 O2 Sat by Pulse Oximetry (%) 97 07/22/17 09:00 Labs: CBC, BMP 07/22/17 06:00 07/22/17 06:00 INR, PTT INR 1.35 (0.82-1.09) H 07/21/17 01:47 Problem List - Problems (1) Rectal bleeding Code(s): K62.5 - HEMORRHAGE OF ANUS AND RECTUM (2) Primary biliary cirrhosis Code(s): K74.3 - PRIMARY BILIARY CIRRHOSIS (3) Thrombocytopenia Code(s): D69.6 - THROMBOCYTOPENIA, UNSPECIFIED (4) Chronic anemia Code(s): D64.9 - ANEMIA, UNSPECIFIED (5) Coagulopathy Code(s): D68.9 - COAGULATION DEFECT, UNSPECIFIED (6) Paroxysmal atrial fibrillation Code(s): I48.0 - PAROXYSMAL ATRIAL FIBRILLATION (7) Portal hypertensive gastropathy Code(s): K31.89 - OTHER DISEASES OF STOMACH AND DUODENUM (8) Bradycardia Code(s): R00.1 - BRADYCARDIA, UNSPECIFIED Assessment/Plan Surgery: Hemodynamically stable. Alert and oriented, Coagulopathics, thrombocytopenia, Leucopenia. Still has some rectal bleeding with stools, not hemorrhage. Hematocrit is stable. Correct blood and coagulation factors. Monitor hematocrit.
--- NOTE | 2017-07-22 12:50 | PN ---
GI Progress Note Subjective: GI NOte: Had a soft BM today after Miralax last night with a small amount of blood and hemorrhoidal itch. The pattern of bleeding is most suggestive of hemorrhoids. The Hb is stable. Daughter is at the bedside. I have asked her to greens picker a Sitz bath kit and epsom salt for Yessica Nelson to do at home. - Objective Vital Signs: Vital Signs Temperature 97.9 F 07/22/17 09:01 Pulse Rate 68 07/22/17 09:01 Respiratory Rate 20 07/22/17 09:01 Blood Pressure 154/60 07/22/17 09:01 O2 Sat by Pulse Oximetry (%) 97 07/22/17 09:00 Laboratory Tests 07/21/17 07/21/17 07/22/17 01:47 09:30 06:00 Hgb 9.9 L 9.7 L 9.3 L Constitutional: No Distress ...Auscultate: Yes: Normoactive Bowel Sounds ...Palpate: Yes: Soft, Other (nontender) Labs: CBC, BMP 07/22/17 06:00 07/22/17 06:00 INR, PTT INR 1.35 (0.82-1.09) H 07/21/17 01:47 Problem List - Problems (1) Colon adenoma Code(s): D12.6 - BENIGN NEOPLASM OF COLON, UNSPECIFIED (2) Portal hypertensive gastropathy Code(s): K31.89 - OTHER DISEASES OF STOMACH AND DUODENUM (3) History of bleeding peptic ulcer Code(s): Z87.11 - PERSONAL HISTORY OF PEPTIC ULCER DISEASE (4) Coagulopathy Code(s): D68.9 - COAGULATION DEFECT, UNSPECIFIED (5) Primary biliary cirrhosis Code(s): K74.3 - PRIMARY BILIARY CIRRHOSIS (6) GI bleed Assessment/Plan: Yessica Nelson's bleeding is hemorrhoidal in origin and resolving. I advised her to continue Miralax at home and to do Sitz baths with epsom salt BID.No GI objections to discharge. Code(s): K92.2 - GASTROINTESTINAL HEMORRHAGE, UNSPECIFIED
[2017-07-22] MEDS ORDERED: guaiFENesin 200 MG/10 ML 10 ML UNIT-DOSE CUPS PO PRN (13:26)
--- NOTE | 2017-07-22 13:26 | DS ---
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 Admitted for close observation, evauted by GI and Surgery consult, symptoms improved, most likely sourse for bleeding is Hemorrhoidal. Labs: CBC, BMP 07/22/17 06:00 07/22/17 06:00 Discharge Summary Reason For Visit: GASTROINTESTINAL HEMORRHAGE Current Active Problems Chronic anemia (Acute) HTN (hypertension) (Acute) History of bleeding peptic ulcer (Acute) Hypothyroidism (Acute) Lower GI bleed (Acute) Paroxysmal atrial fibrillation (Acute) Primary biliary cirrhosis (Acute) Thrombocytopenia (Acute) Condition: Improved - Instructions Diet, Activity, Other Instructions: High Fiber Soft Referrals: Jair Wahl MD [Primary Care Provider] - Disposition: HOME - Home Medications Comprehensive Discharge Medication List: Ambulatory Orders Carvedilol [Coreg -] 6.25 mg PO BID #30 tablet 02/07/14 Levothyroxine [Synthroid -] 50 mcg PO DAILY #30 tablet 02/07/14 Ursodiol [Actigal -] 300 mg PO TID #30 capsule 02/07/14 Ezetimibe [Zetia] 10 mg PO DAILY 03/07/14 Ranitidine [Zantac -] 150 mg PO BID #180 tablet 03/10/16 Diclofenac Sodium 100 gm TP DAILY 07/21/17 Polyethylene Glycol 3350 [Miralax 119 gm Btl -] 17 gm PO BID bottle 07/22/17
[2017-07-22] MEDS ORDERED: CEFUROXIME AXETIL 250 MG TABLET PO SCH (22:00)
== END 2017-07-22 14:21 | disposition home or self-care (01) ==
LOC: JER 21:06 → JERBED 07-21 07:13 → J7W 07-21 13:00
PROVIDERS: ADMIT Internal Medicine; ATTEND Internal Medicine
PROC: 3E033GC Introduction of Other Therapeutic Substance into Peripheral Vein, Percutaneous Approach (ICD-10-PCS; principal; 2017-07-21)
PROC: 3E0337Z Introduction of Electrolytic and Water Balance Substance into Peripheral Vein, Percutaneous Approach (ICD-10-PCS; 2017-07-21)
DX: K92.2 Gastrointestinal hemorrhage, unspecified (principal); I10 Essential (primary) hypertension; I48.0 Paroxysmal atrial fibrillation; E03.9 Hypothyroidism, unspecified; K74.3 Primary biliary cirrhosis; K21.9 Gastro-esophageal reflux disease without esophagitis; D69.6 Thrombocytopenia, unspecified; D64.9 Anemia, unspecified; Z87.11 Personal history of peptic ulcer disease; D12.6 Benign neoplasm of colon, unspecified; K31.89 Other diseases of stomach and duodenum; D68.9 Coagulation defect, unspecified; R00.1 Bradycardia, unspecified; Z91.013 Allergy to seafood; Z91.038 Other insect allergy status
CPT/HCPCS: 36415; 74177-TC; 80048; 80053; 82105; 82272; 82550; 82728; 83540; 83550; 84484; 85025; 85044; 85610; 86301; 86850; 86900; 86901; 93005; 93010; 96365; 99285-25; G0378

== ENCOUNTER 2018-07-01 22:22 | Emergency (ER) | payer OTHER, BC ==
[2018-07-01 22:29] VITALS: BP 180/70; PULSE 68; TEMP 98.2; BMI 34.9
--- NOTE | 2018-07-02 00:50 | PDOC ---
History of Present Illness - General Chief Complaint: Ear Problem Stated Complaint: BLEEDING FROM RIGHT EAR Time Seen by Provider: 07/02/18 00:17 History Source: Patient Exam Limitations: No Limitations - History of Present Illness Initial Comments: 07/02/18 00:18 87 year old woman with a history of anemia, PBC, splenomegaly, chronic thrombocytopenia, paroxysmal afbi, portal gastropathy, diverticulosis, hemmorrhoids who presents with R ear canal bleeding for the past 4 hours. The patient scratched her ear 2 days ago afterwhich she bled for about 1 hour. Today she thought she had some ear wax and scratched her ear, but was unable to stop the bleeding with tissue. She states some hearing changes as if underwater , but no ringing of the ears, no headache, no changes in vision, no fevers. She has no other complaints at bedside. Past History - Past Medical History Allergies/Adverse Reactions: Allergies Allergy/AdvReac Type Severity Reaction Status Date / Time meloxicam [From Mobic] Allergy Severe Swelling Verified 07/01/18 22:29 shellfish derived Allergy Severe Swelling Verified 07/01/18 22:29 venom-honey bee Allergy Severe Swelling Verified 07/01/18 22:29 [bee venom (honey bee)] Home Medications: Ambulatory Orders Carvedilol [Coreg -] 6.25 mg PO BID #30 tablet 02/07/14 Levothyroxine [Synthroid -] 50 mcg PO DAILY #30 tablet 02/07/14 Ursodiol [Actigal -] 300 mg PO TID #30 capsule 02/07/14 Ezetimibe [Zetia] 10 mg PO DAILY 03/07/14 Ranitidine [Zantac -] 150 mg PO BID #180 tablet 03/10/16 Diclofenac Sodium 100 gm TP DAILY 07/21/17 Cefuroxime Axetil [Ceftin -] 250 mg PO BID 7 Days #14 tablet 07/22/17 Guaifenesin [Robitussin -] 10 ml PO Q6H PRN 7 Days #1 cup 07/22/17 Polyethylene Glycol 3350 [Miralax 119 gm Btl -] 17 gm PO BID bottle 07/22/17 Anemia: No Asthma: No Cancer: No Cardiac Disorders: Yes (palpitations;ASHD) CVA: No COPD: No CHF: No Dementia: No Diabetes: No GI Disorders: Yes (gerd;PORTAL GASTROPATHY;DUODENAL ULCER;GASTRIC POLYPS;COLON POLYPS) Disorders: No HTN: Yes Hypercholesterolemia: Yes Liver Disease: Yes (liver cirrhosis) Seizures: No Thyroid Disease: Yes (hypothyroid) - Surgical History Abdominal Surgery: No Appendectomy: No Cardiac Surgery: No Cholecystectomy: Yes Lung Surgery: No Neurologic Surgery: Yes (lumbar compression fx, herniated disc) Orthopedic Surgery: Yes (RIGHT WRIST FX) - Immunization History Immunization Up to Date: Yes - Suicide/Smoking/Psychosocial Hx Smoking History: Never smoked Have you smoked in the past 12 months: No Number of Cigarettes Smoked Daily: 0 Hx Alcohol Use: No Drug/Substance Use Hx: No Substance Use Type: None Hx Substance Use Treatment: No *Physical Exam - Vital Signs Last Vital Signs Temp Pulse Resp BP Pulse Ox 98.2 F 68 22 H 180/70 H 95 07/01/18 22:26 07/01/18 22:26 07/01/18 22:26 07/01/18 22:26 07/01/18 22:26 - Physical Exam Comments: 07/02/18 01:39 R ear bleeding, with some clot in the canal tissue removal no hemotympanym no rupture of eardrum Moderate Sedation - Procedure Monitoring Vital Signs: Procedure Monitoring Vital Signs Temperature 98.2 F 07/01/18 22:26 Pulse Rate 68 07/01/18 22:26 Respiratory Rate 22 H 07/01/18 22:26 Blood Pressure 180/70 H 07/01/18 22:26 O2 Sat by Pulse Oximetry (%) 95 07/01/18 22:26 ED Treatment Course - LABORATORY CBC & Chemistry Diagram: 07/02/18 01:02 Medical Decision Making - Medical Decision Making 07/02/18 00:51 87 year old woman with a history of anemia, PBC, splenomegaly, chronic thrombocytopenia, paroxysmal afbi, portal gastropathy, diverticulosis, hemmorrhoids who presents with R ear canal bleeding for the past 4 hours. The patient scratched her ear 2 days ago afterwhich she bled for about 1 hour. Today she thought she had some ear wax and scratched her ear, but was unable to stop the bleeding with tissue. She states some hearing changes as if underwater , but no ringing of the ears, no headache, no changes in vision, no fevers. She has no other complaints at bedside. ED Course: cbc: at baseline w/ pancytopenia. Patient *DC/Admit/Observation/Transfer Diagnosis at time of Disposition: Ear bleeding - Discharge Dispostion Disposition: HOME Condition at time of disposition: Stable Decision to Admit order: No - Referrals Referrals: Jair Wahl MD [Primary Care Provider] - Steve Chery MD [Staff Physician] - - Patient Instructions Additional Instructions: You were seen in the ED for complaints of R ear bleeding. In the ED you were evaluated with labwork and your wound was cleaned and redressed with improvement of bleeding. Your lab results were at your baseline values. There does not appear to be an acute need for immediate hospitalization. Please follow up as scheduled with your Primary Care Doctor appointment tomorrow. You were given a referral to an Ear Nose and Throat physician. Please follow up within 1 week or as directed by your Family Physician. Return to the ED immediately if you experience worsening bleeding, changes in vision or hearing, coughing up blood, bleeding from the nose, headaches, dizziness, instability on your feet, nausea or vomiting. - Post Discharge Activity
--- NOTE | 2018-07-02 01:00 | PDOC ---
Attending Attestation - HPI HPI: 07/02/18 01:14 The patient is a 88 year old female, with a significant past medical history of anemia, PBC, splenomegaly, chronic thrombocytopenia, paroxysmal afib, portal gastropathy, diverticulosis, hemorrhoids, who presents to the emergency department with, 4 hours of right ear bleeding. Patient endorses scratching her ear with a Qtip and since then, she has been experiencing bleeding to the right ear. She attempted to stop the bleeding with a tissue but, was unsuccessful She denies recent fevers, chills, headache or dizziness. She denies recent nausea, vomit, diarrhea or constipation. She denies recent dysuria, frequency, urgency or hematuria. She denies recent chest pain or shortness of breath. Primary Care Physician: Dr. Wahl - Physicial Exam PE: 07/02/18 01:14 GENERAL: Awake, alert, and fully oriented, in no acute distress HEAD: No signs of trauma EYES: PERRLA, EOMI, sclera anicteric, conjunctiva clear +ENT: Right ear: Gauze and clots removed. Oozing to the right ear. TM non- bulging and intact, nonbleeding. Surgicel placed. NECK: Normal ROM, supple, no lymphadenopathy, JVD, or masses LUNGS: Breath sounds equal, clear to auscultation bilaterally. No wheezes, and no crackles HEART: Regular rate and rhythm, normal S1 and S2, no murmurs, rubs or gallops ABDOMEN: Soft, nontender, normoactive bowel sounds. No guarding, no rebound. No masses EXTREMITIES: Normal range of motion, no edema. No clubbing or cyanosis. No cords, erythema, or tenderness NEUROLOGICAL: Cranial nerves II through XII grossly intact. Normal speech, normal gait SKIN: Warm, Dry, normal turgor, no rashes or lesions noted. <Linn Del Real - Last Filed: 07/02/18 01:14> - Resident Resident Name: Maria Fernanda Smith - ED Attending Attestation I have performed the following: I have examined & evaluated the patient, The case was reviewed & discussed with the resident, I agree w/resident's findings & plan, Exceptions are as noted - Medical Decision Making 07/02/18 00:58 I, Dr. Bhumika Vegas, DO, attest that this document has been prepared under my direction and personally reviewed by me in its entirety. I further attest, that it accurately reflects all work, treatment, procedures and medical decision -making performed by me. 07/02/18 00:58 a/p: 88yo female with hx of thrombocytopenia presents for eval of bleeding from the R ear -pt with bleeding after using a q-tip in the ear -then put tissues in the ear to stop the bleeding -pt with gauze in the R ear canal -gauze removed, no lac visualized, small oozing from the posterior aspect of the ear canal -surgicel placed to stop the bleeding -will check cbc for plt count 07/02/18 01:26 pt at baseline pancytopenia plt 54 07/02/18 01:[address] Wahl for tonight 07/02/18 01:40 re-eval: no further bleeding from the R ear after surgicel was placed discussed follow up with ENT answered all questions stable for dc to home <Bhumika Vegas - Last Filed: 07/02/18 01:40> Attestations - Attestations 07/02/18 01:15 Documentation prepared by Linn Del Real, acting as medical legal investigator for Bhumika Vegas DO. <Linn Del Real - Last Filed: 07/02/18 01:14>
[2018-07-02 01:11] LABS: BASO % 0.8 % (0-2.0); EOS % 5.4 % (0-4.5); HEMATOCRIT 27.4 % (32.4-45.2); HEMOGLOBIN 9.6 GM/dL (10.7-15.3); LYMPH % 25.1 % (8-40); MCH 32.2 pg (25.7-33.7); MEAN CELL VOLUME 91.9 fl (80-96); MEAN PLT VOLUME 9.2 fl (7.5-11.1); MONO % 13.9 % (3.8-10.2); NEUT % 54.8 % (42.8-82.8); PLATELET COUNT 54 K/MM3 (134-434); RBC 2.98 M/mm3 (3.60-5.2); RDW 14.8 % (11.6-15.6); WHITE BLOOD COUNT 2.9 K/mm3 (4.0-10.0)
== END 2018-07-02 02:05 | disposition home or self-care (01) ==
LOC: JER 22:22
DX: H92.21 Otorrhagia, right ear (principal); D69.6 Thrombocytopenia, unspecified; E03.9 Hypothyroidism, unspecified; I48.91 Unspecified atrial fibrillation; K76.6 Portal hypertension; K31.89 Other diseases of stomach and duodenum; Z87.19 Personal history of other diseases of the digestive system
CPT/HCPCS: 36415; 85025; 99281-25

== ENCOUNTER 2019-02-25 17:08 | Inpatient (IN) | payer OTHER ==
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
[2019-02-25] MEDS ORDERED: ACETAMINOPHEN 1000 MG/100 ML VIAL (NON FORMULARY) IVPB ONE (18:50)
[2019-02-25] MEDS ORDERED: ACETAMINOPHEN INJECTION 100 ML IVPB ONE (19:21)
[2019-02-25 19:29] LABS: BASO % 0.3 % (0-2.0); EOS % 3.8 % (0-4.5); HEMATOCRIT 31.7 % (32.4-45.2); HEMOGLOBIN 10.8 GM/dL (10.7-15.3); LYMPH % 19.8 % (8-40); MEAN CELL VOLUME 91.3 fl (80-96); MEAN PLT VOLUME 9.8 fl (7.5-11.1); NEUT % 66.1 % (42.8-82.8); PLATELET COUNT 52 K/MM3 (134-434); RBC 3.48 M/mm3 (3.60-5.2); RDW 14.4 % (11.6-15.6); WHITE BLOOD COUNT 3.9 K/mm3 (4.0-10.0)
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
[2019-02-25 19:51] LABS: INR 1.28 (0.83-1.09); PROTHROMBIN TIME (PATIENT) 15.1 SEC (9.7-13.0)
[2019-02-25 19:58] LABS: ALBUMIN 3.4 g/dl (3.4-5.0); BILIRUBIN,TOTAL 0.7 mg/dL (0.2-1); BLOOD UREA NITROGEN 31.9 mg/dL (7-18); CALCIUM 9.6 mg/dL (8.5-10.1); CREATININE 1.1 mg/dL (0.55-1.3); POTASSIUM 4.4 mmol/L (3.5-5.1); TOT PROT 6.9 g/dl (6.4-8.2)
[2019-02-25] MEDS ORDERED: morphine CARPU-JECT 2 MG/1 ML DISP.SYRIN IVPUSH ONE (20:54)
[2019-02-25] MEDS ORDERED: MORPHINE SULFATE 2 MG/ML VIAL ONE (21:15)
[2019-02-26] MEDS ORDERED: morphine CARPU-JECT 2 MG/1 ML DISP.SYRIN IVPUSH ONE (00:53)
[2019-02-26] MEDS ORDERED: MORPHINE SULFATE 2 MG/ML VIAL ONE (00:55)
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
[2019-02-26] MEDS ORDERED: ACETAMINOPHEN 1000 MG/100 ML VIAL (NON FORMULARY) IVPB ONE (04:25)
[2019-02-26] MEDS ORDERED: ACETAMINOPHEN INJECTION 100 ML IVPB ONE (04:26)
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
[2019-02-26] MEDS: EZETIMIBE 10 MG TABLET (FP) PO SCH (10:54)
[2019-02-26] MEDS: CARVEDILOL 12.5 MG TABLET (FP) PO SCH ×2 (10:54→21:05)
[2019-02-26] MEDS: URSODIOL 300 MG CAPSULE PO SCH ×2 (11:29→21:05)
--- NOTE | 2019-02-26 11:31 | EKG ---
Test Reason : Blood Pressure : / mmHG Vent. Rate : 056 BPM Atrial Rate : 056 BPM P-R Int : 000 ms QRS Dur : 102 ms QT Int : 452 ms P-R-T Axes : 000 -25 033 degrees QTc Int : 436 ms POOR DATA QUALITY, INTERPRETATION MAY BE ADVERSELY AFFECTED SINUS BRADYCARDIA VOLTAGE CRITERIA FOR LEFT VENTRICULAR HYPERTROPHY ABNORMAL ECG Confirmed by IVANA AYON, ALEX ([id number]) on 02/26/2019 11:31:45 AM Referred By: Confirmed By:ALEX HEATH MD
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
[2019-02-26] MEDS: ACETAMINOPHEN 325 MG TABLET (FP) PO PRN ×2 (13:05→18:38)
[2019-02-26] MEDS: oxyCODONE HCL 5 MG TABLET PO PRN ×2 (13:06→18:38)
[2019-02-26 14:57] VITALS: BMI 31.9
[2019-02-26] MEDS ORDERED: PT OWN MED DRAWER 7, Y5N ONE (20:43)
[2019-02-27] MEDS: oxyCODONE HCL 5 MG TABLET PO PRN ×4 (02:28→21:27)
[2019-02-27] MEDS: LEVOTHYROXINE NA 50 MCG TABLET (FP) PO SCH (07:02)
[2019-02-27] MEDS ORDERED: PT OWN MED DRAWER 7, Y5N ONE ×2 (09:03→21:26)
[2019-02-27] MEDS: ACETAMINOPHEN 325 MG TABLET (FP) PO PRN ×2 (09:12→15:18)
[2019-02-27] MEDS: URSODIOL 300 MG CAPSULE PO SCH ×2 (09:13→21:27)
[2019-02-27] MEDS: EZETIMIBE 10 MG TABLET (FP) PO SCH (09:13)
[2019-02-27] MEDS: CARVEDILOL 12.5 MG TABLET (FP) PO SCH ×2 (09:13→21:27)
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
[2019-02-28] MEDS: oxyCODONE HCL 5 MG TABLET PO PRN ×4 (02:58→21:15)
[2019-02-28] MEDS: LEVOTHYROXINE NA 50 MCG TABLET (FP) PO SCH (06:27)
[2019-02-28] MEDS: ACETAMINOPHEN 325 MG TABLET (FP) PO PRN ×2 (08:56→15:25)
[2019-02-28] MEDS ORDERED: PT OWN MED DRAWER 7, Y5N ONE ×3 (09:03→21:11)
[2019-02-28] MEDS: CARVEDILOL 12.5 MG TABLET (FP) PO SCH ×2 (09:08→21:37)
[2019-02-28] MEDS: URSODIOL 300 MG CAPSULE PO SCH ×2 (09:08→21:37)
[2019-02-28] MEDS: EZETIMIBE 10 MG TABLET (FP) PO SCH (09:09)
--- NOTE | 2019-02-28 14:09 | PN ---
Progress Note, Physician Chief Complaint: No new complaints - Current Medication List Current Medications: Active Medications Acetaminophen (Tylenol -) 325 mg PO Q6H PRN PRN Reason: PAIN 5-10 Last Admin: 02/28/19 08:56 Dose: 325 mg Carvedilol (Coreg -) 12.5 mg PO BID [facility] Last Admin: 02/28/19 09:08 Dose: 12.5 mg Ezetimibe (Zetia -) 10 mg PO DAILY [facility] Last Admin: 02/28/19 09:09 Dose: 10 mg Levothyroxine Sodium (Synthroid -) 50 mcg PO DAILY@0700 [facility] Last Admin: 02/28/19 06:27 Dose: 50 mcg Oxycodone HCl (Roxicodone -) 5 mg PO Q6H PRN PRN Reason: PAIN LEVEL 5-10 Last Admin: 02/28/19 08:56 Dose: 5 mg Ursodiol (Actigal -) 300 mg PO BID [facility] Last Admin: 02/28/19 09:08 Dose: 300 mg - Objective Vital Signs: Vital Signs Temperature 98.2 F 02/28/19 10:00 Pulse Rate 96 H 02/28/19 10:00 Respiratory Rate 20 02/28/19 10:00 Blood Pressure 147/64 02/28/19 10:00 O2 Sat by Pulse Oximetry (%) 98 02/28/19 09:00 Constitutional: Yes: No Distress Eyes: Yes: WNL HENT: Yes: WNL Neck: Yes: WNL Cardiovascular: Yes: WNL Respiratory: Yes: WNL Gastrointestinal: Yes: WNL ...Rectal Exam: Yes: Deferred Genitourinary: Yes: WNL Edema: No Integumentary: Yes: WNL Wound/Incision: Yes: Sutures Intact Neurological: Yes: Alert Psychiatric: Yes: Alert Labs: CBC, BMP 02/25/19 19:06 02/25/19 19:06 INR, PTT INR 1.28 (0.83-1.09) H 02/25/19 19:09 Assessment/Plan PT in progress Will discuss discharge plans with secondary social studies 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
--- NOTE | 2019-02-28 16:46 | PN ---
Progress Note (short form) - Note Progress Note: Pt seen and examined. She is more comfortable today, min c/o pain. No SOB or trouble breathing. Not on supplemental O2 Rec Activities as tolerated Will follow
[2019-02-28] MEDS ORDERED: LIDOCAINE PATCH REMOVAL MC SCH (22:00)
[2019-03-01] MEDS: LEVOTHYROXINE NA 50 MCG TABLET (FP) PO SCH (06:43)
[2019-03-01] MEDS ORDERED: PT OWN MED DRAWER 7, Y5N ONE (09:02)
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
[2019-03-01] MEDS: EZETIMIBE 10 MG TABLET (FP) PO SCH (09:22)
[2019-03-01] MEDS: CARVEDILOL 12.5 MG TABLET (FP) PO SCH (09:22)
[2019-03-01] MEDS: URSODIOL 300 MG CAPSULE PO SCH (09:28)
[2019-03-01] MEDS ORDERED: LIDOCAINE 5% TOPICAL PATCH TP SCH (10:00)
[2019-03-01] MEDS ORDERED: GABAPENTIN 100 MG CAPSULE (FP) PO SCH (10:00)
[2019-03-01] MEDS: ACETAMINOPHEN 325 MG TABLET (FP) PO PRN (11:30)
[2019-03-01] MEDS: oxyCODONE HCL 5 MG TABLET PO PRN (11:31)
[2019-03-01 12:04] VITALS: BP 158/65; PULSE 65; TEMP 98
== END 2019-03-01 12:25 | disposition home or self-care (01) | DRG 347 ==
LOC: JER 17:08 → JERBED 21:51 → J8W 02-26 09:34
PROVIDERS: ADMIT Internal Medicine; ATTEND Internal Medicine
DX: S12.500A Unspecified displaced fracture of sixth cervical vertebra, initial encounter for closed fracture (principal); S22.20XA Unspecified fracture of sternum, initial encounter for closed fracture; R16.1 Splenomegaly, not elsewhere classified; D69.6 Thrombocytopenia, unspecified; I48.0 Paroxysmal atrial fibrillation; V49.3XXA Car occupant (driver) (passenger) injured in unspecified nontraffic accident, initial encounter; D64.9 Anemia, unspecified; K74.5 Biliary cirrhosis, unspecified; Y93.89 Activity, other specified; Y92.488 Other paved roadways as the place of occurrence of the external cause; Y99.8 Other external cause status; I10 Essential (primary) hypertension; E78.00 Pure hypercholesterolemia, unspecified; E03.9 Hypothyroidism, unspecified; E66.9 Obesity, unspecified; Z68.31 Body mass index [BMI] 31.0-31.9, adult
CPT/HCPCS: 36415; 70450-TC; 71045-TC-FY; 71250-TC; 71550-TC; 72125-TC; 72141-TC; 74177-TC; 80053; 82550; 84484; 85025; 85610; 85730; 86850; 86900; 86901; 93005; 93010; 97116-GP; 97161-GP; 99285-25; J0131

== ENCOUNTER 2019-03-10 18:59 | Inpatient (IN) | payer OTHER, BC ==
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
[2019-03-10 20:22] LABS: BASO % 0.6 % (0-2.0); EOS % 4.8 % (0-4.5); HEMATOCRIT 28.9 % (32.4-45.2); HEMOGLOBIN 9.8 GM/dL (10.7-15.3); LYMPH % 20.2 % (8-40); MCH 30.5 pg (25.7-33.7); MCHC 33.8 g/dl (32.0-36.0); MEAN CELL VOLUME 90.2 fl (80-96); MEAN PLT VOLUME 9.4 fl (7.5-11.1); MONO % 16.1 % (3.8-10.2); NEUT % 58.3 % (42.8-82.8); PLATELET COUNT 67 K/MM3 (134-434); RDW 14.8 % (11.6-15.6); WHITE BLOOD COUNT 4.8 K/mm3 (4.0-10.0)
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
[2019-03-10 20:34] LABS: INR 1.32 (0.83-1.09); PROTHROMBIN TIME (PATIENT) 15.6 SEC (9.7-13.0)
[2019-03-10 20:50] LABS: N-TERMINAL BNP 767.7 pg/ml (5-450)
[2019-03-10 20:59] LABS: ALBUMIN 3.1 g/dl (3.4-5.0); BILIRUBIN,TOTAL 0.7 mg/dL (0.2-1); BLOOD UREA NITROGEN 36.7 mg/dL (7-18); CALCIUM 10.6 mg/dL (8.5-10.1); CREATININE 1.3 mg/dL (0.55-1.3); POTASSIUM 4.1 mmol/L (3.5-5.1); TOT PROT 6.5 g/dl (6.4-8.2)
[2019-03-10] MEDS ORDERED: FUROSEMIDE 100 MG/10 ML INJECTABLE VIAL IVPB ONE (23:15)
[2019-03-10] MEDS ORDERED: FUROSEMIDE 40 MG/4 ML INJECTABLE VIAL ONE (23:38)
--- NOTE | 2019-03-11 14:04 | EKG ---
Test Reason : Blood Pressure : / mmHG Vent. Rate : 060 BPM Atrial Rate : 227 BPM P-R Int : 000 ms QRS Dur : 098 ms QT Int : 432 ms P-R-T Axes : 000 -33 040 degrees QTc Int : 432 ms JUNCTIONAL RHYTHM LEFT AXIS DEVIATION MODERATE VOLTAGE CRITERIA FOR LVH, MAY BE NORMAL VARIANT ABNORMAL ECG WHEN COMPARED WITH ECG OF 25-FEB-2019 17:50, NO SIGNIFICANT CHANGE WAS FOUND Confirmed by GREG GROSSMAN MD ([id number]) on 03/11/2019 2:04:48 PM Referred By: Confirmed By:GREG GROSSMAN MD
[2019-03-11 16:43] VITALS: BMI 33.3
--- NOTE | 2019-03-11 18:20 | CON.CARD ---
Consult Consult Specialty:: Cardiology Referred by:: Jair Wahl MD Reason for Consultation:: CHF - History of Present Illness Chief Complaint: Dyspnea, LE edema History of Present Illness: 88 yo female h/o HTN, hyperlipidemia, paroxysmal atrial fibrillation in NSR, bilary cirrhosis with portal gastropathy, GI bleed, duodenal ulcer, hemorrhoids s/p band ligation, polyps s/p polypectomy, chronic anemia and thrombocytopenia last seen in office 11/19/2018 presents with increased bilateral LE edema, abdominal distension and orthopnea, she denies chest pain, palpitations, near or true syncope, PND, reports medication and diet compliance, receiving IV diuresis. 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 History of Recent Travel: No Home Medications - Allergies Allergies/Adverse Reactions: Allergies Allergy/AdvReac Type Severity Reaction Status Date / Time meloxicam [From Mobic] Allergy Severe Swelling Verified 02/25/19 22:24 shellfish derived Allergy Severe Swelling Verified 02/25/19 22:24 venom-honey bee Allergy Severe Swelling Verified 02/25/19 22:24 [bee venom (honey bee)] ibuprofen [From Motrin] Allergy Verified 02/25/19 23:04 - Home Medications Home Medications: Ambulatory Orders Ezetimibe [Zetia] 10 mg PO HS 03/07/14 Ranitidine [Zantac -] 150 mg PO BID #180 tablet 03/10/16 Carvedilol [Coreg -] 12.5 mg PO BID 02/25/19 Levothyroxine [Synthroid -] 50 mcg PO DAILY@0700 tablet 03/01/19 Furosemide [Lasix -] 40 mg PO DAILY 03/10/19 Ursodiol [Actigal -] 300 mg PO TID 03/10/19 Family Disease History - Family Disease History Family Disease History: CA: Father (lung cancer), Mother (colon cancer age 65), Brother (prostate cancer), Sister (lung cancer), Son (colon cancer age 40), Other: Daughter (thyroid disease x 3 daughters) Review of Systems - Review of Systems Cardiovascular: reports: Edema Respiratory: reports: Orthopnea Vital Signs: Vital Signs Temperature 98 F 03/11/19 16:09 Pulse Rate 55 L 03/11/19 16:09 Respiratory Rate 20 03/11/19 16:09 Blood Pressure 152/72 03/11/19 16:09 O2 Sat by Pulse Oximetry (%) 99 03/11/19 16:09 Constitutional: Yes: No Distress, Calm Neck: Yes: Supple Respiratory: Yes: Regular, Diminished Gastrointestinal: Yes: Normal Bowel Sounds, Soft Cardiovascular: Yes: Regular Rate and Rhythm JVD: No Carotid Bruit: No Heart Sounds: Yes: S1, S2 Murmur: Yes: Systolic Murmur, Grade 2 Edema: Yes Edema: LLE: 2+, RLE: 2+ - Other Data Labs, Other Data: CBC, BMP 03/10/19 20:10 03/10/19 20:10 INR, PTT INR 1.32 (0.83-1.09) H 03/10/19 20:10 Troponin, BNP 03/10/19 20:10 Troponin I < 0.02 B-Natriuretic Peptide 767.7 H Troponin, BNP 03/10/19 20:10 Troponin I < 0.02 B-Natriuretic Peptide 767.7 H NSR @ 60 similar to previous 11/19/2018 Ejection Fraction %: LVEF > or = 40 % Imaging - Results Cat Scan: Report Reviewed (Chest CT: Small bilateral effusions, small left opacity ATX vs infiltrate, s/p cholecystectomy, no ascites) Ultrasound: Report Reviewed ([facility] US: No DVT) Problem List - Problems (1) CHF (congestive heart failure) Code(s): I50.9 - HEART FAILURE, UNSPECIFIED Qualifiers: Heart failure type: diastolic Heart failure chronicity: acute on chronic Qualified Code(s): I50.33 - Acute on chronic diastolic (congestive) heart failure (2) Chronic anemia Code(s): D64.9 - ANEMIA, UNSPECIFIED (3) Fluid overload Code(s): E87.70 - FLUID OVERLOAD, UNSPECIFIED Qualifiers: Hypervolemia type: other Qualified Code(s): E87.79 - Other fluid overload (4) HTN (hypertension) Code(s): I10 - ESSENTIAL (PRIMARY) HYPERTENSION Qualifiers: Hypertension type: essential hypertension Qualified Code(s): I10 - Essential (primary) hypertension (5) History of bleeding peptic ulcer Code(s): Z87.11 - PERSONAL HISTORY OF PEPTIC ULCER DISEASE (6) Hypothyroidism Code(s): E03.9 - HYPOTHYROIDISM, UNSPECIFIED Qualifiers: Hypothyroidism type: unspecified Qualified Code(s): E03.9 - Hypothyroidism , unspecified (7) Paroxysmal atrial fibrillation Code(s): I48.0 - PAROXYSMAL ATRIAL FIBRILLATION (8) Shortness of breath Code(s): R06.02 - SHORTNESS OF BREATH (9) Thrombocytopenia Code(s): D69.6 - THROMBOCYTOPENIA, UNSPECIFIED Assessment/Plan Echocardiogram: 08/23/2018 Normal LV size and fxn with grade II diastolic dysfunction, normal RV size and fxn, normal biatrial sizes, mild AR, MR, mod TR RVSP 46 mmHg, mild [place] 1. Acute on chronic diastolic heart failure 2. Hypertensive heart disease 3. Hyperlipidemia 4. Hypothyroidism 5. PAF not on a/c due to GI bleeds and thrombocytopenia P:1. IV diuresis with monitor diuretic response, renal fxn and electrolytes 2. Continue carvedilol 12.5 bid, zetia 10 qd, YAO-I/ARB as hemodynamics tolerate , check TSH 3. Thank you for consultative opportunity
--- NOTE | 2019-03-11 18:54 | HP ---
DATE OF ADMISSION: 03/10/2019 DATE OF DICTATION: 03/11/2019 HISTORY OF PRESENT ILLNESS: This is an 88-year-old female with past medical history of cirrhosis, splenomegaly, chronic thrombocytopenia, diverticulosis, recently had a fall and has fracture of the sternum and cervical rib, comes to the ER yesterday with complaints of shortness of breath, diagnosed to have CHF, so got admitted to the hospital. This morning after receiving the IV Lasix she is feeling better. Her leg swelling is also a little better. PHYSICAL EXAMINATION: General: On examination, she is awake, alert, oriented, not in distress. Vital signs: Blood pressure 130/80, pulse 72, respirations 20, temperature 98. HEENT: Unremarkable. Neck: Supple. No JVD. Lungs: A few basilar rales present. Heart: S1, S2 normal. No S3, S4. Abdomen: Soft. Minimal ascites present. Extremities: Legs, edema present. Neurological: Grossly normal. Genitourinary: Has a Arnold catheter in. Urine output good. LABORATORY: WBC 4.8, hemoglobin 9.8, platelet count 67. Chemistry: Sodium 134, potassium 4.1, chloride 96, BUN 36, creatinine 1.3. BNP 767. Troponin is negative. EKG, no acute changes. CT of the chest done shows bibasilar fluids in the lung. IMPRESSION: Congestive heart failure, anemia, cirrhosis of the liver. PLAN: Continue her present medications and IV Lasix. Will get cardiology consultation by Dr. Nunez. Will follow. Ronnie [id number]
[2019-03-11] MEDS ORDERED: PT OWN MED DRAWER 7, Y5N ONE (21:54)
[2019-03-11] MEDS: URSODIOL 300 MG CAPSULE PO SCH (22:05)
[2019-03-11] MEDS: CARVEDILOL 12.5 MG TABLET (FP) PO SCH (22:05)
[2019-03-11] MEDS: oxyCODONE HCL 5 MG TABLET PO PRN (22:05)
[2019-03-12] MEDS: FUROSEMIDE 40 MG/4 ML INJECTABLE VIAL IVPUSH SCH ×2 (06:32→13:08)
[2019-03-12] MEDS ORDERED: LEVOTHYROXINE NA 50 MCG TABLET (FP) PO SCH (07:00)
[2019-03-12] MEDS: oxyCODONE HCL 5 MG TABLET PO PRN ×2 (08:01→17:55)
[2019-03-12] MEDS: ACETAMINOPHEN 325 MG TABLET (FP) PO PRN ×2 (08:01→17:54)
[2019-03-12] MEDS ORDERED: PT OWN MED DRAWER 7, Y5N ONE ×2 (08:52→21:41)
[2019-03-12 09:04] LABS: BLOOD UREA NITROGEN 32.3 mg/dL (7-18); CALCIUM 9.4 mg/dL (8.5-10.1); CREATININE 1.1 mg/dL (0.55-1.3); POTASSIUM 3.7 mmol/L (3.5-5.1)
[2019-03-12] MEDS: EZETIMIBE 10 MG TABLET (FP) PO SCH (09:06)
[2019-03-12] MEDS: CARVEDILOL 12.5 MG TABLET (FP) PO SCH ×2 (09:06→21:44)
[2019-03-12] MEDS: URSODIOL 300 MG CAPSULE PO SCH ×2 (09:06→21:44)
--- NOTE | 2019-03-12 16:06 | PN ---
Progress Note, Physician Chief Complaint: Feels better History of Present Illness: Admitted with CHF - Current Medication List Current Medications: Active Medications Acetaminophen (Tylenol -) 650 mg PO Q4H PRN PRN Reason: PAIN LEVEL 1-5 Last Admin: 03/12/19 08:01 Dose: 650 mg Carvedilol (Coreg -) 12.5 mg PO BID [facility] Last Admin: 03/12/19 09:06 Dose: 12.5 mg Ezetimibe (Zetia -) 10 mg PO DAILY [facility] Last Admin: 03/12/19 09:06 Dose: 10 mg Furosemide (Lasix Injection -) 40 mg IVPUSH BID@0600,1400 [facility] Last Admin: 03/12/19 13:08 Dose: 40 mg Levothyroxine Sodium (Synthroid -) 50 mcg PO DAILY@0700 [facility] Last Admin: 03/12/19 06:32 Dose: 50 mcg Oxycodone HCl (Roxicodone -) 5 mg PO Q6H PRN PRN Reason: PAIN 6-10 Last Admin: 03/12/19 08:01 Dose: 5 mg Ursodiol (Actigal -) 300 mg PO BID [facility] Last Admin: 03/12/19 09:06 Dose: 300 mg - Objective Vital Signs: Vital Signs Temperature 98.8 F 03/12/19 14:14 Pulse Rate 58 L 03/12/19 14:14 Respiratory Rate 15 03/12/19 14:14 Blood Pressure 113/46 L 03/12/19 14:14 O2 Sat by Pulse Oximetry (%) 99 03/12/19 09:00 Constitutional: Yes: No Distress Eyes: Yes: WNL HENT: Yes: WNL Neck: Yes: WNL Cardiovascular: Yes: WNL Respiratory: Yes: WNL Gastrointestinal: Yes: WNL ...Rectal Exam: Yes: Deferred Genitourinary: Yes: WNL Musculoskeletal: Yes: Muscle Weakness Edema: LLE: Trace, RLE: Trace Integumentary: Yes: WNL Neurological: Yes: Alert Psychiatric: Yes: Alert Labs: CBC, BMP 03/10/19 20:10 03/12/19 07:00 INR, PTT INR 1.32 (0.83-1.09) H 03/10/19 20:10 Assessment/Plan TSH borderline high, will increase synthroid
[2019-03-13] MEDS: oxyCODONE HCL 5 MG TABLET PO PRN ×3 (02:15→17:36)
[2019-03-13] MEDS: ACETAMINOPHEN 325 MG TABLET (FP) PO PRN ×3 (02:26→13:35)
[2019-03-13] MEDS: LEVOTHYROXINE NA 75 MCG TABLET (FP) PO SCH (06:28)
[2019-03-13] MEDS: FUROSEMIDE 40 MG/4 ML INJECTABLE VIAL IVPUSH SCH ×2 (06:28→13:35)
[2019-03-13] MEDS ORDERED: PT OWN MED DRAWER 7, Y5N ONE ×2 (09:27→21:20)
[2019-03-13] MEDS: CARVEDILOL 12.5 MG TABLET (FP) PO SCH ×2 (09:38→21:23)
[2019-03-13] MEDS: URSODIOL 300 MG CAPSULE PO SCH ×2 (09:38→21:24)
[2019-03-13] MEDS: EZETIMIBE 10 MG TABLET (FP) PO SCH (09:38)
--- NOTE | 2019-03-13 11:59 | PN ---
Progress Note, Physician Chief Complaint: Feels OK - Current Medication List Current Medications: Active Medications Acetaminophen (Tylenol -) 650 mg PO Q4H PRN PRN Reason: PAIN LEVEL 1-5 Last Admin: 03/13/19 06:29 Dose: 650 mg Carvedilol (Coreg -) 12.5 mg PO BID [facility] Last Admin: 03/13/19 09:38 Dose: 12.5 mg Ezetimibe (Zetia -) 10 mg PO DAILY [facility] Last Admin: 03/13/19 09:38 Dose: 10 mg Furosemide (Lasix Injection -) 40 mg IVPUSH BID@0600,1400 [facility] Last Admin: 03/13/19 06:28 Dose: 40 mg Levothyroxine Sodium (Synthroid -) 75 mcg PO DAILY@0700 [facility] Last Admin: 03/13/19 06:28 Dose: 75 mcg Oxycodone HCl (Roxicodone -) 5 mg PO Q6H PRN PRN Reason: PAIN 6-10 Last Admin: 03/13/19 09:39 Dose: 5 mg Ursodiol (Actigal -) 300 mg PO BID [facility] Last Admin: 03/13/19 09:38 Dose: 300 mg - Objective Vital Signs: Vital Signs Temperature 98.1 F 03/13/19 09:45 Pulse Rate 60 03/13/19 09:45 Respiratory Rate 18 03/13/19 09:45 Blood Pressure 149/74 03/13/19 09:45 O2 Sat by Pulse Oximetry (%) 94 L 03/13/19 09:00 Constitutional: Yes: No Distress Eyes: Yes: WNL HENT: Yes: WNL Neck: Yes: WNL Cardiovascular: Yes: WNL Respiratory: Yes: WNL Gastrointestinal: Yes: WNL ...Rectal Exam: Yes: Deferred Breast(s): Yes: WNL Musculoskeletal: Yes: WNL Edema: LLE: Trace, RLE: Trace ...Motor Strength: WNL Labs: CBC, BMP 03/10/19 20:10 03/12/19 07:00 INR, PTT INR 1.32 (0.83-1.09) H 03/10/19 20:10 Assessment/Plan [facility] powers
--- NOTE | 2019-03-13 17:09 | PN ---
Progress Note, Physician History of Present Illness: Dyspnea, bilateral LE edema, abdominal distension and orthopnea resolving with diuresis, denies chest tightness. - Current Medication List Current Medications: Active Medications Acetaminophen (Tylenol -) 650 mg PO Q4H PRN PRN Reason: PAIN LEVEL 1-5 Last Admin: 03/13/19 13:35 Dose: 650 mg Carvedilol (Coreg -) 12.5 mg PO BID [facility] Last Admin: 03/13/19 09:38 Dose: 12.5 mg Ezetimibe (Zetia -) 10 mg PO DAILY [facility] Last Admin: 03/13/19 09:38 Dose: 10 mg Furosemide (Lasix Injection -) 40 mg IVPUSH BID@0600,1400 [facility] Last Admin: 03/13/19 13:35 Dose: 40 mg Levothyroxine Sodium (Synthroid -) 75 mcg PO DAILY@0700 [facility] Last Admin: 03/13/19 06:28 Dose: 75 mcg Oxycodone HCl (Roxicodone -) 5 mg PO Q6H PRN PRN Reason: PAIN 6-10 Last Admin: 03/13/19 09:39 Dose: 5 mg Polyethylene Glycol (Miralax (For Daily Use) -) 17 gm PO HS [facility] Ursodiol (Actigal -) 300 mg PO BID [facility] Last Admin: 03/13/19 09:38 Dose: 300 mg - Objective Vital Signs: Vital Signs Temperature 98.7 F 03/13/19 14:00 Pulse Rate 59 L 03/13/19 14:00 Respiratory Rate 18 03/13/19 14:00 Blood Pressure 144/53 L 03/13/19 14:00 O2 Sat by Pulse Oximetry (%) 94 L 03/13/19 09:00 Constitutional: Yes: No Distress, Calm Neck: Yes: Supple Cardiovascular: Yes: Regular Rate and Rhythm Respiratory: Yes: Regular, CTA Bilaterally Gastrointestinal: Yes: Normal Bowel Sounds, Soft Edema: No Labs: CBC, BMP 03/10/19 20:10 03/12/19 07:00 INR, PTT INR 1.32 (0.83-1.09) H 03/10/19 20:10 - ....Imaging EKG: Report Reviewed (Tele: NSR) Problem List - Problems (1) CHF (congestive heart failure) Code(s): I50.9 - HEART FAILURE, UNSPECIFIED Qualifiers: Heart failure type: diastolic Heart failure chronicity: acute on chronic Qualified Code(s): I50.33 - Acute on chronic diastolic (congestive) heart failure (2) Chronic anemia Code(s): D64.9 - ANEMIA, UNSPECIFIED (3) Fluid overload Code(s): E87.70 - FLUID OVERLOAD, UNSPECIFIED Qualifiers: Hypervolemia type: other Qualified Code(s): E87.79 - Other fluid overload (4) HTN (hypertension) Code(s): I10 - ESSENTIAL (PRIMARY) HYPERTENSION Qualifiers: Hypertension type: essential hypertension Qualified Code(s): I10 - Essential (primary) hypertension (5) History of bleeding peptic ulcer Code(s): Z87.11 - PERSONAL HISTORY OF PEPTIC ULCER DISEASE (6) Hypothyroidism Code(s): E03.9 - HYPOTHYROIDISM, UNSPECIFIED Qualifiers: Hypothyroidism type: unspecified Qualified Code(s): E03.9 - Hypothyroidism , unspecified (7) Paroxysmal atrial fibrillation Code(s): I48.0 - PAROXYSMAL ATRIAL FIBRILLATION (8) Shortness of breath Code(s): R06.02 - SHORTNESS OF BREATH (9) Thrombocytopenia Code(s): D69.6 - THROMBOCYTOPENIA, UNSPECIFIED Assessment/Plan Echocardiogram: 08/23/2018 Normal LV size and fxn with grade II diastolic dysfunction, normal RV size and fxn, normal biatrial sizes, mild AR, MR, mod TR RVSP 46 mmHg, mild [place] 1. Acute on chronic diastolic heart failure 2. Hypertensive heart disease 3. Hyperlipidemia 4. Hypothyroidism 5. PAF not on a/c due to GI bleeds and thrombocytopenia P:1. Resume oral diuresis with monitor diuretic response, renal fxn and electrolytes 2. Continue carvedilol 12.5 bid, zetia 10 qd, start losartan 25 qd as hemodynamics tolerate, Synthroid dose uptitrated per TSH
[2019-03-13] MEDS: POLYETHYLENE GLYCOL 3350 119 GM BTL PO SCH (21:25)
[2019-03-14] MEDS: LEVOTHYROXINE NA 75 MCG TABLET (FP) PO SCH (06:46)
--- NOTE | 2019-03-14 09:56 | PN ---
Progress Note, Physician Chief Complaint: Feels better History of Present Illness: Admitted with CHF - Current Medication List Current Medications: Active Medications Acetaminophen (Tylenol -) 650 mg PO Q4H PRN PRN Reason: PAIN LEVEL 1-5 Last Admin: 03/13/19 13:35 Dose: 650 mg Carvedilol (Coreg -) 12.5 mg PO BID [facility] Last Admin: 03/13/19 21:23 Dose: 12.5 mg Ezetimibe (Zetia -) 10 mg PO DAILY [facility] Last Admin: 03/13/19 09:38 Dose: 10 mg Furosemide (Lasix -) 40 mg PO DAILY [facility] Levothyroxine Sodium (Synthroid -) 75 mcg PO DAILY@0700 [facility] Last Admin: 03/14/19 06:46 Dose: 75 mcg Losartan Potassium (Cozaar -) 25 mg PO DAILY [facility] Oxycodone HCl (Roxicodone -) 5 mg PO Q6H PRN PRN Reason: PAIN 6-10 Last Admin: 03/13/19 17:36 Dose: 5 mg Polyethylene Glycol (Miralax (For Daily Use) -) 17 gm PO HS [facility] Last Admin: 03/13/19 21:25 Dose: 17 gm Ursodiol (Actigal -) 300 mg PO BID [facility] Last Admin: 03/13/19 21:24 Dose: 300 mg - Objective Vital Signs: Vital Signs Temperature 98 F 03/14/19 08:51 Pulse Rate 60 03/14/19 08:51 Respiratory Rate 16 03/14/19 08:51 Blood Pressure 129/54 L 03/14/19 08:51 O2 Sat by Pulse Oximetry (%) 94 L 03/13/19 21:00 Constitutional: Yes: No Distress Eyes: Yes: WNL HENT: Yes: WNL Neck: Yes: WNL Cardiovascular: Yes: WNL Respiratory: Yes: WNL Gastrointestinal: Yes: WNL ...Rectal Exam: Yes: Deferred Genitourinary: Yes: WNL Breast(s): Yes: WNL Musculoskeletal: Yes: WNL Edema: No Labs: CBC, BMP 03/10/19 20:10 03/12/19 07:00 INR, PTT INR 1.32 (0.83-1.09) H 03/10/19 20:10 Assessment/Plan short term rehab
[2019-03-14] MEDS ORDERED: PT OWN MED DRAWER 7, Y5N ONE ×3 (10:04→21:28)
[2019-03-14] MEDS: URSODIOL 300 MG CAPSULE PO SCH ×2 (10:17→21:36)
[2019-03-14] MEDS: CARVEDILOL 12.5 MG TABLET (FP) PO SCH ×2 (10:17→21:36)
[2019-03-14] MEDS: EZETIMIBE 10 MG TABLET (FP) PO SCH (10:18)
[2019-03-14] MEDS: LOSARTAN POTASSIUM 25 MG TABLET PO SCH (10:18)
[2019-03-14] MEDS: FUROSEMIDE 40 MG TABLET (FP) PO SCH (10:18)
[2019-03-14] MEDS: oxyCODONE HCL 5 MG TABLET PO PRN ×2 (10:21→20:23)
--- NOTE | 2019-03-14 11:46 | PN ---
Progress Note, Physician History of Present Illness: Dyspnea, bilateral LE edema, abdominal distension and orthopnea resolving with diuresis, denies chest tightness. - Current Medication List Current Medications: Active Medications Acetaminophen (Tylenol -) 650 mg PO Q4H PRN PRN Reason: PAIN LEVEL 1-5 Last Admin: 03/13/19 13:35 Dose: 650 mg Carvedilol (Coreg -) 12.5 mg PO BID [facility] Last Admin: 03/14/19 10:17 Dose: 12.5 mg Ezetimibe (Zetia -) 10 mg PO DAILY [facility] Last Admin: 03/14/19 10:18 Dose: 10 mg Furosemide (Lasix -) 40 mg PO DAILY [facility] Last Admin: 03/14/19 10:18 Dose: 40 mg Levothyroxine Sodium (Synthroid -) 75 mcg PO DAILY@0700 [facility] Last Admin: 03/14/19 06:46 Dose: 75 mcg Losartan Potassium (Cozaar -) 25 mg PO DAILY [facility] Last Admin: 03/14/19 10:18 Dose: 25 mg Oxycodone HCl (Roxicodone -) 5 mg PO Q6H PRN PRN Reason: PAIN 6-10 Last Admin: 03/14/19 10:21 Dose: 5 mg Polyethylene Glycol (Miralax (For Daily Use) -) 17 gm PO HS [facility] Last Admin: 03/13/19 21:25 Dose: 17 gm Ursodiol (Actigal -) 300 mg PO BID [facility] Last Admin: 03/14/19 10:17 Dose: 300 mg - Objective Vital Signs: Vital Signs Temperature 98 F 03/14/19 08:51 Pulse Rate 60 03/14/19 08:51 Respiratory Rate 16 03/14/19 08:51 Blood Pressure 129/54 L 03/14/19 08:51 O2 Sat by Pulse Oximetry (%) 94 L 03/13/19 21:00 Constitutional: Yes: No Distress, Calm, Thin Neck: Yes: Supple Cardiovascular: Yes: Regular Rate and Rhythm Respiratory: Yes: Regular, Diminished Gastrointestinal: Yes: Normal Bowel Sounds, Soft Edema: No Labs: CBC, BMP 03/10/19 20:10 03/12/19 07:00 INR, PTT INR 1.32 (0.83-1.09) H 03/10/19 20:10 - ....Imaging EKG: Report Reviewed (Tele: SR) Problem List - Problems (1) CHF (congestive heart failure) Code(s): I50.9 - HEART FAILURE, UNSPECIFIED Qualifiers: Heart failure type: diastolic Heart failure chronicity: acute on chronic Qualified Code(s): I50.33 - Acute on chronic diastolic (congestive) heart failure (2) Chronic anemia Code(s): D64.9 - ANEMIA, UNSPECIFIED (3) Fluid overload Code(s): E87.70 - FLUID OVERLOAD, UNSPECIFIED Qualifiers: Hypervolemia type: other Qualified Code(s): E87.79 - Other fluid overload (4) HTN (hypertension) Code(s): I10 - ESSENTIAL (PRIMARY) HYPERTENSION Qualifiers: Hypertension type: essential hypertension Qualified Code(s): I10 - Essential (primary) hypertension (5) History of bleeding peptic ulcer Code(s): Z87.11 - PERSONAL HISTORY OF PEPTIC ULCER DISEASE (6) Hypothyroidism Code(s): E03.9 - HYPOTHYROIDISM, UNSPECIFIED Qualifiers: Hypothyroidism type: unspecified Qualified Code(s): E03.9 - Hypothyroidism , unspecified (7) Paroxysmal atrial fibrillation Code(s): I48.0 - PAROXYSMAL ATRIAL FIBRILLATION (8) Shortness of breath Code(s): R06.02 - SHORTNESS OF BREATH (9) Thrombocytopenia Code(s): D69.6 - THROMBOCYTOPENIA, UNSPECIFIED Assessment/Plan Echocardiogram: 08/23/2018 Normal LV size and fxn with grade II diastolic dysfunction, normal RV size and fxn, normal biatrial sizes, mild AR, MR, mod TR RVSP 46 mmHg, mild [place] 1. Acute on chronic diastolic heart failure 2. Hypertensive heart disease 3. Hyperlipidemia 4. Hypothyroidism 5. PAF not on a/c due to GI bleeds and thrombocytopenia P:1. Resumed oral diuresis with monitor diuretic response, renal fxn and electrolytes 2. Continue carvedilol 12.5 bid, zetia 10 qd, losartan 25 qd as hemodynamics tolerate, Synthroid dose uptitrated per TSH 3. D/c planning with f/u in office
[2019-03-14] MEDS: ACETAMINOPHEN 325 MG TABLET (FP) PO PRN (20:23)
[2019-03-14] MEDS: POLYETHYLENE GLYCOL 3350 119 GM BTL PO SCH (21:37)
[2019-03-15] MEDS: LEVOTHYROXINE NA 75 MCG TABLET (FP) PO SCH (05:59)
[2019-03-15 06:17] LABS: HEMOGLOBIN 9.8 GM/dL (10.7-15.3); MCH 31.6 pg (25.7-33.7); MCHC 34.8 g/dl (32.0-36.0); MEAN CELL VOLUME 90.9 fl (80-96); MEAN PLT VOLUME 9.9 fl (7.5-11.1); PLATELET COUNT 95 K/MM3 (134-434); RBC 3.08 M/mm3 (3.60-5.2); RDW 15.3 % (11.6-15.6); WHITE BLOOD COUNT 5.1 K/mm3 (4.0-10.0)
[2019-03-15] MEDS: oxyCODONE HCL 5 MG TABLET PO PRN ×2 (06:18→14:15)
[2019-03-15 06:24] LABS: ALBUMIN 2.6 g/dl (3.4-5.0); BILIRUBIN,TOTAL 0.9 mg/dL (0.2-1); BLOOD UREA NITROGEN 36.5 mg/dL (7-18); CALCIUM 8.2 mg/dL (8.5-10.1); CREATININE 1.5 mg/dL (0.55-1.3); TOT PROT 5.7 g/dl (6.4-8.2)
[2019-03-15] MEDS ORDERED: PT OWN MED DRAWER 7, Y5N ONE (09:17)
[2019-03-15] MEDS: FUROSEMIDE 40 MG TABLET (FP) PO SCH (09:26)
[2019-03-15] MEDS: CARVEDILOL 12.5 MG TABLET (FP) PO SCH (09:26)
[2019-03-15] MEDS: URSODIOL 300 MG CAPSULE PO SCH (09:26)
[2019-03-15] MEDS: LOSARTAN POTASSIUM 25 MG TABLET PO SCH (09:26)
[2019-03-15] MEDS: EZETIMIBE 10 MG TABLET (FP) PO SCH (09:26)
--- NOTE | 2019-03-15 09:26 | DS ---
Physical Examination Vital Signs: Vital Signs Temperature 98.7 F 03/15/19 01:48 Pulse Rate 58 L 03/15/19 01:48 Respiratory Rate 16 03/15/19 01:48 Blood Pressure 133/57 L 03/15/19 01:48 O2 Sat by Pulse Oximetry (%) 95 03/14/19 21:00 Findings/Remarks: admitted with CHF,needs short term rehab Constitutional: Yes: No Distress Eyes: Yes: WNL HENT: Yes: WNL Neck: Yes: WNL Cardiovascular: Yes: Regular Rate and Rhythm Respiratory: Yes: SOB on Exertion Gastrointestinal: Yes: Normal Bowel Sounds ...Rectal Exam: Yes: Deferred Renal/: Yes: WNL Edema: Yes Edema: LLE: Trace, RLE: Trace Neurological: Yes: Alert Labs: CBC, BMP 03/15/19 05:35 03/15/19 05:35 Discharge Summary Reason For Visit: CONGESTIVE HEART FAILURE, THROMBOCYTOPENIA, Current Active Problems Atelectasis of left lung (Acute) CHF (congestive heart failure) (Acute) Condition: Good - Instructions - Home Medications Comprehensive Discharge Medication List: Ambulatory Orders Ezetimibe [Zetia] 10 mg PO HS 03/07/14 Ranitidine [Zantac -] 150 mg PO BID #180 tablet 03/10/16 Carvedilol [Coreg -] 12.5 mg PO BID 02/25/19 Levothyroxine [Synthroid -] 50 mcg PO DAILY@0700 tablet 03/01/19 Furosemide [Lasix -] 40 mg PO DAILY 03/10/19 Ursodiol [Actigal -] 300 mg PO TID 03/10/19
--- NOTE | 2019-03-15 12:19 | PN ---
Progress Note, Physician Chief Complaint: Events noted Feels better History of Present Illness: Patient was seen and examined. Awake and alert. Chart was reviewed Not in distress. Denies chest pain, SOB or palpitation - Current Medication List Current Medications: Active Medications Acetaminophen (Tylenol -) 650 mg PO Q4H PRN PRN Reason: PAIN LEVEL 1-5 Last Admin: 03/14/19 20:23 Dose: 650 mg Carvedilol (Coreg -) 12.5 mg PO BID [facility] Last Admin: 03/15/19 09:26 Dose: 12.5 mg Ezetimibe (Zetia -) 10 mg PO DAILY [facility] Last Admin: 03/15/19 09:26 Dose: 10 mg Furosemide (Lasix -) 40 mg PO DAILY [facility] Last Admin: 03/15/19 09:26 Dose: 40 mg Levothyroxine Sodium (Synthroid -) 75 mcg PO DAILY@0700 [facility] Last Admin: 03/15/19 05:59 Dose: 75 mcg Losartan Potassium (Cozaar -) 25 mg PO DAILY [facility] Last Admin: 03/15/19 09:26 Dose: 25 mg Oxycodone HCl (Roxicodone -) 5 mg PO Q6H PRN PRN Reason: PAIN 6-10 Last Admin: 03/15/19 06:18 Dose: 5 mg Polyethylene Glycol (Miralax (For Daily Use) -) 17 gm PO HS [facility] Last Admin: 03/14/19 21:37 Dose: Not Given Ursodiol (Actigal -) 300 mg PO BID [facility] Last Admin: 03/15/19 09:26 Dose: 300 mg - Objective Vital Signs: Vital Signs Temperature 98 F 03/15/19 09:31 Pulse Rate 63 03/15/19 09:31 Respiratory Rate 16 03/15/19 09:31 Blood Pressure 133/58 L 03/15/19 09:31 O2 Sat by Pulse Oximetry (%) 95 03/15/19 09:00 Eyes: Yes: PERRL HENT: Yes: Atraumatic Neck: Yes: Supple Cardiovascular: Yes: Regular Rate and Rhythm, S1, S2 Respiratory: Yes: CTA Bilaterally Gastrointestinal: Yes: Normal Bowel Sounds, Soft. No: Tenderness Edema: Yes Additional Findings/Remarks: - Review of Systems Constitutional: denies: Chills, Fever Cardiovascular: reports: Shortness of Breath. denies: Chest Pain, Palpitations Respiratory: reports: Cough, SOB, SOB on Exertion. denies: Hemoptysis, Orthopnea, PND Gastrointestinal: denies: Abdominal Pain, Constipation, Diarrhea, Melena, Nausea , Rectal Bleeding, Vomiting Genitourinary: denies: Dysuria, Hematuria Labs: CBC, BMP 03/15/19 05:35 03/15/19 05:35 Problem List - Problems (1) CHF (congestive heart failure) Code(s): I50.9 - HEART FAILURE, UNSPECIFIED Qualifiers: Heart failure type: diastolic Heart failure chronicity: acute on chronic Qualified Code(s): I50.33 - Acute on chronic diastolic (congestive) heart failure (2) Acute on chronic renal failure Code(s): N17.9 - ACUTE KIDNEY FAILURE, UNSPECIFIED; N18.9 - CHRONIC KIDNEY DISEASE, UNSPECIFIED (3) Chronic anemia Code(s): D64.9 - ANEMIA, UNSPECIFIED (4) HTN (hypertension) Code(s): I10 - ESSENTIAL (PRIMARY) HYPERTENSION Qualifiers: Hypertension type: essential hypertension Qualified Code(s): I10 - Essential (primary) hypertension (5) Hypothyroidism Code(s): E03.9 - HYPOTHYROIDISM, UNSPECIFIED Qualifiers: Hypothyroidism type: unspecified Qualified Code(s): E03.9 - Hypothyroidism , unspecified (6) Paroxysmal atrial fibrillation Code(s): I48.0 - PAROXYSMAL ATRIAL FIBRILLATION (7) Primary biliary cirrhosis Code(s): K74.3 - PRIMARY BILIARY CIRRHOSIS (8) Thrombocytopenia Code(s): D69.6 - THROMBOCYTOPENIA, UNSPECIFIED Assessment/Plan 1. Acute on chronic diastolic heart failure, improved 2. Hypertensive heart disease 3. Hyperlipidemia 4. Hypothyroidism 5. PAF not on anticoagulation due to GI bleed and thrombocytopenia PLAN: 1. Oral diuresis with monitor renal function and electrolytes 2. Continue Carvedilol 12.5 mg BID, Zetia 10 mg QD and Losartan 25 mg QD as hemodynamics tolerate 3. Discharge planning. Follow up in office ([facility] with Dr. Mayra Nunez MD
[2019-03-15 17:28] VITALS: BP 140/55; PULSE 63; TEMP 98
== END 2019-03-15 18:08 | DRG 292 ==
LOC: JER 18:59 → JERBED 23:14 → J4S 03-11 15:25
PROVIDERS: ADMIT Internal Medicine; ATTEND Internal Medicine
DX: I11.0 Hypertensive heart disease with heart failure (principal); J98.11 Atelectasis; J90 Pleural effusion, not elsewhere classified; K76.6 Portal hypertension; M48.52XA Collapsed vertebra, not elsewhere classified, cervical region, initial encounter for fracture; I85.00 Esophageal varices without bleeding; I50.33 Acute on chronic diastolic (congestive) heart failure; K74.60 Unspecified cirrhosis of liver; R16.1 Splenomegaly, not elsewhere classified; K31.89 Other diseases of stomach and duodenum; K57.90 Diverticulosis of intestine, part unspecified, without perforation or abscess without bleeding; I25.10 Atherosclerotic heart disease of native coronary artery without angina pectoris; E03.9 Hypothyroidism, unspecified; E78.00 Pure hypercholesterolemia, unspecified; D64.9 Anemia, unspecified; I48.0 Paroxysmal atrial fibrillation; K64.9 Unspecified hemorrhoids; M51.36 Other intervertebral disc degeneration, lumbar region; E87.79 Other fluid overload; D69.6 Thrombocytopenia, unspecified; Z87.11 Personal history of peptic ulcer disease
CPT/HCPCS: 36415; 71250-TC; 80048; 80053; 83880; 84443; 84484; 85025; 85027; 85610; 86850; 86900; 86901; 93005; 93010; 93970-TC; 97116-GP; 97162-GP; 99285-25

== ENCOUNTER 2019-04-14 10:21 | Inpatient (IN) | payer OTHER, BC ==
--- NOTE | 2019-04-14 11:11 | PDOC ---
History of Present Illness - General Stated Complaint: PAIN Time Seen by Provider: 04/14/19 10:42 - History of Present Illness Initial Comments: 04/14/19 11:05 88 yo F PMH HTN, hyperlipidemia, paroxysmal atrial fibrillation in NSR, bilary cirrhosis with portal gastropathy, GI bleed, duodenal ulcer, hemorrhoids s/p band ligation, polyps s/p polypectomy, chronic anemia and thrombocytopenia, presenting from [facility] with R shoulder pain. Notably, patient had recent kidney infection starting 10 days ago, reportedly treated initially with IV abx and then amoxicillin. States that her R shoulder pain began yesterday, worsened by abduction of her R arm above her head and flexion backwards. Complains of her chronic SOB, no worse than usual, and of ongoing L CVA pain and suprapubic pain despite completion of her abx course. Further complains of urinary retention. Specifically denies CP, N/V, fevers/chills, constipation/diarrhea, rectal bleeding or dark stools. Notably, patient has 800cc of urine removed by straight cath, with resolution of her suprapubic pain. Ongoing L CVA pain. Past History - Past Medical History Allergies/Adverse Reactions: Allergies Allergy/AdvReac Type Severity Reaction Status Date / Time meloxicam [From Mobic] Allergy Severe Swelling Verified 04/14/19 11:54 shellfish derived Allergy Severe Swelling Verified 04/14/19 11:54 venom-honey bee Allergy Severe Swelling Verified 04/14/19 11:54 [bee venom (honey bee)] ibuprofen [From Motrin] Allergy Verified 04/14/19 11:54 Home Medications: Ambulatory Orders Ezetimibe [Zetia] 10 mg PO HS 03/07/14 Ranitidine [Zantac -] 150 mg PO BID #180 tablet 03/10/16 Carvedilol [Coreg -] 12.5 mg PO BID 02/25/19 Levothyroxine [Synthroid -] 50 mcg PO DAILY@0700 tablet 03/01/19 Furosemide [Lasix -] 40 mg PO DAILY 03/10/19 Ursodiol [Actigal -] 300 mg PO TID 03/10/19 Carvedilol [Coreg -] 12.5 mg PO BID tablet 03/15/19 Furosemide [Lasix -] 40 mg PO DAILY tablet 03/15/19 Losartan Potassium [Cozaar -] 25 mg PO DAILY tablet 03/15/19 Polyethylene Glycol 3350 [Miralax 119 gm Btl -] 17 gm PO HS bottle 03/15/19 Ursodiol [Actigal -] 300 mg PO BID capsule 03/15/19 Anemia: No Asthma: No Cancer: No Cardiac Disorders: Yes (palpitations;ASHD) CVA: No COPD: No CHF: No Dementia: No Diabetes: No GI Disorders: Yes (gerd;PORTAL GASTROPATHY;DUODENAL ULCER;GASTRIC POLYPS;COLON POLYPS) Disorders: No HTN: Yes Hypercholesterolemia: Yes Liver Disease: Yes (liver cirrhosis) Seizures: No Thyroid Disease: Yes (hypothyroid) - Surgical History Abdominal Surgery: No Appendectomy: No Cardiac Surgery: No Cholecystectomy: Yes Lung Surgery: No Neurologic Surgery: Yes (lumbar compression fx, herniated disc) Orthopedic Surgery: Yes (RIGHT WRIST FX) - Immunization History Immunization Up to Date: Yes - Psycho Social/Smoking Cessation Hx Smoking History: Never smoked Have you smoked in the past 12 months: No Number of Cigarettes Smoked Daily: 0 Hx Alcohol Use: No Drug/Substance Use Hx: No Substance Use Type: None Hx Substance Use Treatment: No Review of Systems - Review of Systems Constitutional: No: Chills, Diaphoresis, Fever HEENTM: No: Recent change in vision, Throat Pain, Mouth Swelling Respiratory: Yes: Shortness of Breath (chronic). No: Cough Cardiac (ROS): No: Chest Pain, Edema, Irregular Heart Rate, Lightheadedness, Palpitations, Syncope ABD/GI: No: Constipated, Diarrhea, Nausea, Vomiting : Yes: Burning, Dysuria, Flank Pain. No: Discharge, Frequency, Hematuria Musculoskeletal: Yes: Joint Pain (shoulder). No: Back Pain, Neck Pain Neurological: No: Headache, Numbness, Tingling, Weakness *Physical Exam - Physical Exam Comments: 04/14/19 13:37 Gen: well-developed, well-nourished, NAD Neuro: AAOX4, CN II-XII intact, FTN intact, EOMI, PERRLA, SILT HEENT: atraumatic, normocephalic, dry mucous membranes Neck: trachea midline, supple CV: regular rate, regular rhythm, no murmurs, rubs, or gallops Pulm: CTA b/l, no wheezing Abd: soft, non-distended, non-tender MSK: unable to full extend or flex R shoulder 2/2 pain, intact pulses, CVA pain L > R Extr: 2+ pitting edema to the knees, no deformities Skin: warm, dry ED Treatment Course - LABORATORY CBC & Chemistry Diagram: 04/14/19 12:21 04/14/19 12:21 Medical Decision Making - Medical Decision Making 04/14/19 12:30 Concern for possible cuff injury v UTI v possible ACS. - CBC, CMP, EKG - CXR - X ray R shoulder - UA/UC - reassess 04/14/19 13:10 UA without UTI, WBC 2.7. 04/14/19 14:18 CXR with venous congestion similar to previous, X ray R shoulder with osteoarthritic changes. Na 135, Cr 1.3 04/14/19 14:20 EKG 63 bpm, normal sinus, poor baseline quality, LAD, no ST segment elevations or T wave inversions 04/14/19 14:[address] Jair Wahl, will admit for CHF exacerbation and diuresis. Discharge - Discharge Information Problems reviewed: Yes Clinical Impression/Diagnosis: Fluid overload - Follow up/Referral - Patient Discharge Instructions - Post Discharge Activity
[2019-04-14 11:51] LABS: PH,URINE 6.5 (5.0-8.0); URINE APPEARANCE CLEAR; URINE BILIRUBIN NEGATIVE (NEGATIVE); URINE COLOR YELLOW; URINE GLUCOSE (UA) NEGATIVE (NEGATIVE); URINE KETONE NEGATIVE (NEGATIVE); URINE LEUK ESTERASE NEGATIVE (NEGATIVE); URINE NITRITE NEGATIVE (NEGATIVE); URINE PROTEIN NEGATIVE (NEGATIVE); URINE UROBILINOGEN 0.2 mg/dL (0.2-1.0)
[2019-04-14 12:36] LABS: BASO % 1.1 % (0-2.0); EOS % 5.5 % (0-4.5); HEMATOCRIT 29.7 % (32.4-45.2); HEMOGLOBIN 10.2 GM/dL (10.7-15.3); LYMPH % 25.9 % (8-40); MCHC 34.3 g/dl (32.0-36.0); MEAN CELL VOLUME 93.1 fl (80-96); MEAN PLT VOLUME 10.1 fl (7.5-11.1); NEUT % 57.5 % (42.8-82.8); PLATELET COUNT 78 K/MM3 (134-434); RBC 3.19 M/mm3 (3.60-5.2); RDW 15.6 % (11.6-15.6); WHITE BLOOD COUNT 2.7 K/mm3 (4.0-10.0)
[2019-04-14 13:01] LABS: INR 1.3 (0.83-1.09); PROTHROMBIN TIME (PATIENT) 15.4 SEC (9.7-13.0)
[2019-04-14] MEDS ORDERED: ACETAMINOPHEN 500 MG TABLET (FP) PO ONE (13:14)
[2019-04-14] MEDS ORDERED: ACETAMINOPHEN 325 MG TABLET (FP) ONE (13:19)
--- NOTE | 2019-04-14 14:05 | PDOC ---
Documentation entered by Christiana De Leon SCRIBE, acting as scribe for Storm Lyle MD. Storm Lyle MD: This documentation has been prepared by the Haley desai Adrianna, SCRIBE, under my direction and personally reviewed by me in its entirety. I confirm that the documentation accurately reflects all work, treatment, procedures, and medical decision making performed by me. Attending Attestation - Resident Resident Name: Chandan Olmedo - ED Attending Attestation I have performed the following: I have examined & evaluated the patient, The case was reviewed & discussed with the resident, I agree w/resident's findings & plan - HPI HPI: 04/14/19 13:57 88-year-old female with history of diastolic heart failure recently admitted with bilateral pleural effusions and volume overload status post inpatient diuresis, discharged to [facility] presents now with about 1 week of increasing bilateral flank/lung discomfort with right shoulder discomfort, no chest pain, baseline dyspnea and cough. No fevers or chills. Positive orthopnea. Positive increased leg swelling. - Physicial Exam PE: 04/14/19 14:00 Vital signs as noted, afebrile, O2 sat within normal limits Alert seated in stretcher, speaking full sentences No right shoulder deformity or focal tenderness or effusion, full range of motion without difficulty and with full strength Heart is regular, lungs with decreased breath sounds to the mid lung field bilaterally Abdomen benign without RUQ ttp 2-3+ pitting edema bilaterally - Medical Decision Making 04/14/19 14:01 88-year-old female with history of diastolic heart failure and known bilateral pleural effusions presents with some increased work of breathing and bilateral flank/shoulder pain. Presentation seems most consistent with volume overload and symptomatic pleural effusions, no evidence of ACS or acute infection, rule out superimposed pneumonia. Labs, urinalysis EKG, chest x-ray, consider repeat CT chest to evaluate extent of effusions compared to 1 month ago Likely need inpatient diuresis Heart Score/ECG Review #1 ECG reviewed & interpreted by me at: 13:55 General ECG Interpretation: Sinus Rhythm, Normal Rate (63), Normal Intervals ( qtc 450, LVH), No acute ischemic changes Compared to previous ECG there are: No significant change (c/w 03/10/19)
[2019-04-14 14:15] LABS: CREATININE 1.3 mg/dL (0.55-1.3); GLUCOSE,RANDOM 135 mg/dL (74-106)
[2019-04-14 14:16] LABS: ALBUMIN 3.1 g/dl (3.4-5.0); CALCIUM 9.4 mg/dL (8.5-10.1); CO2 27 mmol/L (21-32); SODIUM 135 mmol/L (136-145); TOT PROT 6.9 g/dl (6.4-8.2)
[2019-04-14 14:17] LABS: ALK PHOS 239 U/L (45-117); BILIRUBIN,TOTAL 1.3 mg/dL (0.2-1); SGPT/ALT 34 U/L (13-61)
[2019-04-14] MEDS ORDERED: FUROSEMIDE 40 MG/4 ML INJECTABLE VIAL IVPUSH ONE (14:31)
[2019-04-14] MEDS ORDERED: FUROSEMIDE 40 MG/4 ML INJECTABLE VIAL ONE (14:39)
[2019-04-14 14:52] LABS: ANION GAP 8 MMOL/L (8-16); BLOOD UREA NITROGEN 25.1 mg/dL (7-18); CHLORIDE 100 mmol/L (98-107); POTASSIUM 4.7 mmol/L (3.5-5.1); SGOT/AST 66 U/L (15-37)
[2019-04-14 16:19] VITALS: BMI 34.1
[2019-04-15] MEDS ORDERED: oxyCODONE HCL 5 MG TABLET PO ONE (03:00)
[2019-04-15] MEDS ORDERED: PT OWN MED DRAWER 7, Y5N ONE ×5 (04:47→21:53)
[2019-04-15] MEDS: URSODIOL 300 MG CAPSULE PO SCH ×3 (05:28→22:53)
[2019-04-15] MEDS: LEVOTHYROXINE NA 50 MCG TABLET (FP) PO SCH (06:15)
[2019-04-15 07:21] LABS: HEMOGLOBIN 9.4 GM/dL (10.7-15.3); MCH 32.4 pg (25.7-33.7); MCHC 34.7 g/dl (32.0-36.0); MEAN CELL VOLUME 93.5 fl (80-96); MEAN PLT VOLUME 10.3 fl (7.5-11.1); PLATELET COUNT 70 K/MM3 (134-434); RBC 2.89 M/mm3 (3.60-5.2); RDW 15.4 % (11.6-15.6)
[2019-04-15 08:05] LABS: ALBUMIN 2.8 g/dl (3.4-5.0); BILIRUBIN,TOTAL 0.8 mg/dL (0.2-1); BLOOD UREA NITROGEN 25.2 mg/dL (7-18); CALCIUM 8.8 mg/dL (8.5-10.1); POTASSIUM 3.8 mmol/L (3.5-5.1); TOT PROT 5.9 g/dl (6.4-8.2)
[2019-04-15 08:16] LABS: CREATININE 1.4 mg/dL (0.55-1.3)
--- NOTE | 2019-04-15 09:36 | HP ---
DATE OF ADMISSION: 04/14/2019 DATE OF DICTATION: 04/15/2019 This is an 88-year-old female known to me for many years, a present resident of [facility], came here with complaints of right shoulder pain. In the ER she was found to be in CHF so got admitted. Other medical problems include hyperlipidemia, paroxysmal atrial fibrillation, biliary cirrhosis with portal gastropathy, duodenal ulcer. When she was in [facility] she had recurrent UTI, was treated with IV and p.o. antibiotics. This morning patient is feeling better, no complaints other than some pain in the right shoulder. PHYSICAL EXAMINATION: General: Patient is alert, oriented, not in distress. Vital Signs: BP 120/80, pulse 72, respiration 20, temperature 98. HEENT: Unremarkable. Neck: Supple. Lungs: Bibasilar rales present. Heart: S1, S2 normal. No S3, S4. Abdomen: Soft. Hepatosplenomegaly present. Legs: No edema. Neurologic: Grossly normal. Extremities: Range of motion of right shoulder is restricted. LABORATORY REPORTS: WBC 3, hemoglobin 9.4, hematocrit 27, platelets 70. Chemistry: Sodium 139, potassium 3.8, chloride 103, BUN 52, creatinine 1.4. Blood sugar 121. Chest x-ray: Pulmonary congestion present. Microbiology: Urine catheterization report pending. IMPRESSION: 1. Congestive heart failure. 2. Cirrhosis of the liver. 3. Osteoarthritis. 4. Thrombocytopenia. 5. Neutropenia. PLAN: IV Lasix. Continue her present medications. Will follow. Ronnie [id number]
[2019-04-15] MEDS: FUROSEMIDE 40 MG/4 ML INJECTABLE VIAL IVPUSH SCH (09:55)
[2019-04-15] MEDS: oxyCODONE HCL 5 MG TABLET PO PRN ×3 (09:55→22:53)
[2019-04-15] MEDS: LOSARTAN POTASSIUM 25 MG TABLET PO SCH (09:55)
[2019-04-15] MEDS: CARVEDILOL 12.5 MG TABLET (FP) PO SCH ×2 (09:56→22:53)
[2019-04-15] MEDS: FAMOTIDINE 20 MG TABLET PO SCH ×2 (09:56→22:53)
--- NOTE | 2019-04-15 10:46 | CON.CARD ---
Consult Consult Specialty:: Cardiology Referred by:: Jair Wahl MD Reason for Consultation:: Dyspnea, orthopnea, LE edema - History of Present Illness Chief Complaint: Dyspnea, orthopnea, LE edema History of Present Illness: 88 yo female h/o HTN, hyperlipidemia, paroxysmal atrial fibrillation in NSR, bilary cirrhosis with portal gastropathy, GI bleed, duodenal ulcer, hemorrhoids s/p band ligation, polyps s/p polypectomy, chronic anemia and thrombocytopenia last seen in office 11/19/2018 presents with dyspnea, orthopnea, increased bilateral LE edema, right shoulder discomfort worse with movement, she denies chest pain, palpitations, near or true syncope, PND, reports medication and diet compliance, receiving IV diuresis. Missed 03/18/2019 appointment. 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 History of Recent Travel: No Home Medications - Allergies Allergies/Adverse Reactions: Allergies Allergy/AdvReac Type Severity Reaction Status Date / Time meloxicam [From Mobic] Allergy Severe Swelling Verified 04/14/19 11:54 shellfish derived Allergy Severe Swelling Verified 04/14/19 11:54 venom-honey bee Allergy Severe Swelling Verified 04/14/19 11:54 [bee venom (honey bee)] ibuprofen [From Motrin] Allergy Verified 04/14/19 11:54 - Home Medications Home Medications: Ambulatory Orders Ezetimibe [Zetia] 10 mg PO HS 03/07/14 Ranitidine [Zantac -] 150 mg PO BID #180 tablet 03/10/16 Carvedilol [Coreg -] 12.5 mg PO BID 02/25/19 Levothyroxine [Synthroid -] 50 mcg PO DAILY@0700 tablet 03/01/19 Furosemide [Lasix -] 40 mg PO DAILY 03/10/19 Ursodiol [Actigal -] 300 mg PO TID 03/10/19 Losartan Potassium [Cozaar -] 25 mg PO DAILY tablet 03/15/19 Polyethylene Glycol 3350 [Miralax 119 gm Btl -] 17 gm PO HS bottle 03/15/19 Review of Systems - Review of Systems Cardiovascular: reports: Edema Respiratory: reports: Orthopnea, SOB Vital Signs: Vital Signs Temperature 98.8 F 04/15/19 09:35 Pulse Rate 70 04/15/19 09:35 Respiratory Rate 18 04/15/19 09:35 Blood Pressure 147/56 L 04/15/19 09:35 O2 Sat by Pulse Oximetry (%) 99 04/14/19 15:12 Constitutional: Yes: No Distress, Calm Neck: Yes: Supple Respiratory: Yes: Regular, Diminished Gastrointestinal: Yes: Normal Bowel Sounds, Soft Cardiovascular: Yes: Regular Rate and Rhythm JVD: No Carotid Bruit: No Heart Sounds: Yes: S1, S2 Murmur: Yes: Systolic Murmur, Grade 2 Edema: Yes Edema: LLE: Trace, RLE: Trace - Other Data Labs, Other Data: CBC, BMP 04/15/19 06:05 04/15/19 06:05 INR, PTT INR 1.30 (0.83-1.09) H 04/14/19 12:21 Troponin, BNP 04/14/19 12:21 Troponin I < 0.02 B-Natriuretic Peptide 698.0 H Troponin, BNP 04/14/19 12:21 Troponin I < 0.02 B-Natriuretic Peptide 698.0 H NSR @ 63 LAD Ejection Fraction %: LVEF > or = 40 % Imaging - Results Chest X-ray: Report Reviewed (NAD) Problem List - Problems (1) Fluid overload Code(s): E87.70 - FLUID OVERLOAD, UNSPECIFIED Qualifiers: Hypervolemia type: unspecified Qualified Code(s): E87.70 - Fluid overload, unspecified (2) CHF (congestive heart failure) Code(s): I50.9 - HEART FAILURE, UNSPECIFIED Qualifiers: Heart failure type: diastolic Heart failure chronicity: acute on chronic Qualified Code(s): I50.33 - Acute on chronic diastolic (congestive) heart failure (3) HTN (hypertension) Code(s): I10 - ESSENTIAL (PRIMARY) HYPERTENSION Qualifiers: Hypertension type: essential hypertension Qualified Code(s): I10 - Essential (primary) hypertension (4) History of bleeding peptic ulcer Code(s): Z87.11 - PERSONAL HISTORY OF PEPTIC ULCER DISEASE (5) Hypothyroidism Code(s): E03.9 - HYPOTHYROIDISM, UNSPECIFIED Qualifiers: Hypothyroidism type: unspecified Qualified Code(s): E03.9 - Hypothyroidism , unspecified (6) Paroxysmal atrial fibrillation Code(s): I48.0 - PAROXYSMAL ATRIAL FIBRILLATION (7) Shortness of breath Code(s): R06.02 - SHORTNESS OF BREATH (8) Hyperlipidemia Code(s): E78.5 - HYPERLIPIDEMIA, UNSPECIFIED Qualifiers: Hyperlipidemia type: pure hypercholesterolemia Qualified Code(s): E78.00 - Pure hypercholesterolemia, unspecified; E78.0 - Pure hypercholesterolemia Assessment/Plan Echocardiogram: 08/23/2018 Normal LV size and fxn with grade II diastolic dysfunction, normal RV size and fxn, normal biatrial sizes, mild AR, MR, mod TR RVSP 46 mmHg, mild MS 1. Acute on chronic diastolic heart failure 2. Hypertensive heart disease 3. Hyperlipidemia 4. Hypothyroidism 5. PAF not on a/c due to GI bleeds and thrombocytopenia P:1. IVl diuresis with monitor diuretic response, renal fxn and electrolytes 2. Continue carvedilol 12.5 bid, zetia 10 qd, losartan 25 qd as hemodynamics tolerate, Synthroid dose uptitrated per TSH 3. Eventual f/u in office 4. Thank you for consultative opportunity
[2019-04-15 11:14] LABS: CHOLESTEROL 107 mg/dL (50-200); HDL CHOLESTEROL 55 mg/dL (40-60); LDL CHOLESTEROL (ONLY SJRH) 41 mg/dL (5-100); TRIGLYCERIDES 48 mg/dL (0-150)
--- NOTE | 2019-04-15 12:54 | EKG ---
Test Reason : Blood Pressure : / mmHG Vent. Rate : 063 BPM Atrial Rate : 063 BPM P-R Int : 188 ms QRS Dur : 102 ms QT Int : 440 ms P-R-T Axes : 069 -30 023 degrees QTc Int : 450 ms POOR DATA QUALITY, INTERPRETATION MAY BE ADVERSELY AFFECTED POOR DATA QUALITY, INTERPRETATION MAY BE ADVERSELY AFFECTED NORMAL SINUS RHYTHM vs. Junctional rhyhtm LEFT AXIS DEVIATION MODERATE VOLTAGE CRITERIA FOR LVH, MAY BE NORMAL VARIANT NONSPECIFIC ST ABNORMALITY ABNORMAL ECG Confirmed by GREG GROSSMAN MD ([id number]) on 04/15/2019 12:54:39 PM Referred By: Confirmed By:GREG GROSSMAN MD
[2019-04-15] MEDS ORDERED: FUROSEMIDE 40 MG/4 ML INJECTABLE VIAL IVPUSH ONE (15:00)
[2019-04-15] MEDS: EZETIMIBE 10 MG TABLET (FP) PO SCH (22:53)
[2019-04-15] MEDS: POLYETHYLENE GLYCOL 3350 119 GM BTL PO SCH (22:57)
[2019-04-16] MEDS ORDERED: PT OWN MED DRAWER 7, Y5N ONE ×3 (06:37→21:07)
[2019-04-16] MEDS: URSODIOL 300 MG CAPSULE PO SCH ×3 (07:02→21:49)
[2019-04-16] MEDS: LEVOTHYROXINE NA 50 MCG TABLET (FP) PO SCH (07:02)
[2019-04-16 07:28] LABS: BLOOD UREA NITROGEN 25.9 mg/dL (7-18); CALCIUM 8.8 mg/dL (8.5-10.1); CREATININE 1.4 mg/dL (0.55-1.3); POTASSIUM 3.6 mmol/L (3.5-5.1)
[2019-04-16] MEDS: FAMOTIDINE 20 MG TABLET PO SCH ×2 (10:37→21:48)
[2019-04-16] MEDS: CARVEDILOL 12.5 MG TABLET (FP) PO SCH ×2 (10:37→21:49)
[2019-04-16] MEDS: FUROSEMIDE 40 MG/4 ML INJECTABLE VIAL IVPUSH SCH (10:37)
[2019-04-16] MEDS: LOSARTAN POTASSIUM 25 MG TABLET PO SCH (10:37)
--- NOTE | 2019-04-16 11:30 | PN ---
Progress Note (short form) - Note Progress Note: Chief Complaint: Events noted, notes reviewed, reports dyspnea but improved, reports right sided chest pain History of Present Illness: Seen and examined. Events noted, notes reviewed, reports dyspnea but improved, reports right sided chest pain Medications: Current Medications Carvedilol (Coreg -) 12.5 mg PO BID [facility] Last Admin: 04/16/19 10:37 Dose: 12.5 mg Ezetimibe (Zetia -) 10 mg PO [facility] Last Admin: 04/15/19 22:53 Dose: 10 mg Famotidine (Pepcid -) 20 mg PO BID [facility] Last Admin: 04/16/19 10:37 Dose: 20 mg Furosemide (Lasix Injection -) 40 mg IVPUSH DAILY [facility] Last Admin: 04/16/19 10:37 Dose: 40 mg Levothyroxine Sodium (Synthroid -) 50 mcg PO DAILY@0700 [facility] Last Admin: 04/16/19 07:02 Dose: 50 mcg Losartan Potassium (Cozaar -) 25 mg PO DAILY [facility] Last Admin: 04/16/19 10:37 Dose: 25 mg Oxycodone HCl (Roxicodone -) 5 mg PO Q6H PRN PRN Reason: PAIN LEVEL 4 - 6 Last Admin: 04/15/19 22:53 Dose: 5 mg Polyethylene Glycol (Miralax (For Daily Use) -) 17 gm PO [facility] Last Admin: 04/15/19 22:57 Dose: 17 grams Ursodiol (Actigal -) 300 mg PO TID [facility] Last Admin: 04/16/19 07:02 Dose: 300 mg Vital Signs: Last Vital Signs Temp Pulse Resp BP Pulse Ox 98.0 F 59 L 20 145/59 L 100 04/15/19 17:22 04/15/19 17:22 04/15/19 17:22 04/15/19 17:22 04/15/19 09:00 Intake & Output 04/13/19 04/14/19 04/15/19 04/16/19 23:59 23:59 23:59 23:59 Output Total 2700 2100 Balance -0 -2100 Weight 198 lb 11.2 oz 188 lb 8 oz Constitutional: No Distress Neck: Supple Negative JVD No Bruit Respiratory: Clear to A&P Bilaterally Cardiovascular: S1 S2 Regular Rate Rhythm Gastrointestinal: Soft Benign Normal Bowel Sounds Ext: Negative Edema Intact Distal Pulses No Calf Tenderness Labs: CBC, BMP 04/15/19 06:05 04/16/19 05:33 Hepatic Panel Total Bilirubin 0.8 mg/dL (0.2-1) 04/15/19 06:05 AST 33 U/L (15-37) 04/15/19 06:05 ALT 27 U/L (13-61) 04/15/19 06:05 Alkaline Phosphatase 203 U/L (45-117) H 04/15/19 06:05 Albumin 2.8 g/dl (3.4-5.0) L 04/15/19 06:05 INR, PTT INR 1.30 (0.83-1.09) H 04/14/19 12:21 Assessment/Plan Assessment/Plan: 1. Acute on chronic class II NYHA classification LV diastolic heart failure, clinically resolving 2. CAD visual coronary artery calcification on CT scan of the chest angina pectoris 3. Paroxysmal atrial fibrillation [id number] score of 5 on no A/C, related to history of gastrointestinal bleed and thrombocytopenia/pancytopenia 4. Hypertensive heart disease 5. Hyperlipidemia PLAN: 1. Continue Carvedilol, and titrate dosage as needed and as tolerated 2. Continue Cozaar, and titrate dosage as needed and as tolerated 3. Continue IV Lasix for an additional 24-48 hours 4. Continue Zetia 5. Monitor CBC and BMP Echo Green MD
--- NOTE | 2019-04-16 13:57 | PN ---
Progress Note, Physician Chief Complaint: No new complaints History of Present Illness: 88 yo female h/o HTN, hyperlipidemia, paroxysmal atrial fibrillation in NSR, bilary cirrhosis with portal gastropathy, GI bleed, duodenal ulcer, hemorrhoids s/p band ligation, polyps s/p polypectomy, chronic anemia and thrombocytopenia last seen in office 11/19/2018 presents with dyspnea, orthopnea, increased bilateral LE edema, right shoulder discomfort - Current Medication List Current Medications: Active Medications Carvedilol (Coreg -) 12.5 mg PO BID [facility] Last Admin: 04/16/19 10:37 Dose: 12.5 mg Ezetimibe (Zetia -) 10 mg PO HS [facility] Last Admin: 04/15/19 22:53 Dose: 10 mg Famotidine (Pepcid -) 20 mg PO BID [facility] Last Admin: 04/16/19 10:37 Dose: 20 mg Furosemide (Lasix Injection -) 40 mg IVPUSH DAILY [facility] Last Admin: 04/16/19 10:37 Dose: 40 mg Levothyroxine Sodium (Synthroid -) 50 mcg PO DAILY@0700 [facility] Last Admin: 04/16/19 07:02 Dose: 50 mcg Losartan Potassium (Cozaar -) 25 mg PO DAILY [facility] Last Admin: 04/16/19 10:37 Dose: 25 mg Oxycodone HCl (Roxicodone -) 5 mg PO Q6H PRN PRN Reason: PAIN LEVEL 4 - 6 Last Admin: 04/15/19 22:53 Dose: 5 mg Polyethylene Glycol (Miralax (For Daily Use) -) 17 gm PO HS [facility] Last Admin: 04/15/19 22:57 Dose: 17 grams Ursodiol (Actigal -) 300 mg PO TID [facility] Last Admin: 04/16/19 07:02 Dose: 300 mg - Objective Vital Signs: Vital Signs Temperature 98 F 04/16/19 09:00 Pulse Rate 73 04/16/19 09:00 Respiratory Rate 18 04/16/19 09:00 Blood Pressure 154/68 04/16/19 09:00 O2 Sat by Pulse Oximetry (%) 100 04/16/19 09:00 Elderly F not in distress c/o back pain HEENT: mm moist anemia, PERRLA EOMI NECK; No JVd No Bruit CHEST: minimal basal crepts EXT: edema feet + , no calf tenderness [employer]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[employer] non focal Labs: CBC, BMP 04/15/19 06:05 04/16/19 05:33 INR, PTT INR 1.30 (0.83-1.09) H 04/14/19 12:21 Problem List - Problems (1) CHF (congestive heart failure) Assessment/Plan: Cont Lasix B Blockers Code(s): I50.9 - HEART FAILURE, UNSPECIFIED Qualifiers: Heart failure type: diastolic Heart failure chronicity: acute on chronic Qualified Code(s): I50.33 - Acute on chronic diastolic (congestive) heart failure (2) Hypothyroidism Assessment/Plan: On Levothyroxine Code(s): E03.9 - HYPOTHYROIDISM, UNSPECIFIED Qualifiers: Hypothyroidism type: unspecified Qualified Code(s): E03.9 - Hypothyroidism , unspecified (3) HTN (hypertension) Assessment/Plan: Well controlled Code(s): I10 - ESSENTIAL (PRIMARY) HYPERTENSION Qualifiers: Hypertension type: essential hypertension Qualified Code(s): I10 - Essential (primary) hypertension (4) Hyperlipidemia Assessment/Plan: On statin Code(s): E78.5 - HYPERLIPIDEMIA, UNSPECIFIED Qualifiers: Hyperlipidemia type: pure hypercholesterolemia Qualified Code(s): E78.00 - Pure hypercholesterolemia, unspecified; E78.0 - Pure hypercholesterolemia (5) Biliary cirrhosis Assessment/Plan: Cont current management Code(s): K74.5 - BILIARY CIRRHOSIS, UNSPECIFIED (6) Thrombocytopenia Assessment/Plan: due to Billiry Cirrhosis stable Code(s): D69.6 - THROMBOCYTOPENIA, UNSPECIFIED (7) CKD (chronic kidney disease) stage 3, GFR 30-59 ml/min Assessment/Plan: Stable Code(s): N18.3 - CHRONIC KIDNEY DISEASE, STAGE 3 (MODERATE)
[2019-04-16] MEDS: oxyCODONE HCL 5 MG TABLET PO PRN ×2 (14:12→20:04)
[2019-04-16] MEDS: POLYETHYLENE GLYCOL 3350 119 GM BTL PO SCH (21:49)
[2019-04-16] MEDS: EZETIMIBE 10 MG TABLET (FP) PO SCH (21:49)
[2019-04-17] MEDS ORDERED: PT OWN MED DRAWER 7, Y5N ONE ×3 (05:49→20:58)
[2019-04-17] MEDS: URSODIOL 300 MG CAPSULE PO SCH ×3 (06:10→21:38)
[2019-04-17] MEDS: LEVOTHYROXINE NA 50 MCG TABLET (FP) PO SCH (06:11)
[2019-04-17 06:16] LABS: BASO % 0.9 % (0-2.0); EOS % 7.7 % (0-4.5); HEMATOCRIT 28.8 % (32.4-45.2); HEMOGLOBIN 9.9 GM/dL (10.7-15.3); LYMPH % 35.6 % (8-40); MCH 32.4 pg (25.7-33.7); MCHC 34.5 g/dl (32.0-36.0); MEAN CELL VOLUME 93.7 fl (80-96); MONO % 14.9 % (3.8-10.2); NEUT % 40.9 % (42.8-82.8); PLATELET COUNT 78 K/MM3 (134-434); RBC 3.07 M/mm3 (3.60-5.2); RDW 15.1 % (11.6-15.6); WHITE BLOOD COUNT 4.2 K/mm3 (4.0-10.0)
[2019-04-17 06:42] LABS: BLOOD UREA NITROGEN 26.8 mg/dL (7-18); CALCIUM 8.8 mg/dL (8.5-10.1); CREATININE 1.6 mg/dL (0.55-1.3); POTASSIUM 3.6 mmol/L (3.5-5.1)
[2019-04-17] MEDS: oxyCODONE HCL 5 MG TABLET PO PRN (09:13)
[2019-04-17] MEDS: FAMOTIDINE 20 MG TABLET PO SCH ×2 (09:14→21:38)
[2019-04-17] MEDS: LOSARTAN POTASSIUM 25 MG TABLET PO SCH (09:14)
[2019-04-17] MEDS: CARVEDILOL 12.5 MG TABLET (FP) PO SCH ×2 (09:14→21:38)
[2019-04-17] MEDS: FUROSEMIDE 40 MG/4 ML INJECTABLE VIAL IVPUSH SCH (09:15)
--- NOTE | 2019-04-17 11:21 | PN ---
Progress Note, Physician Chief Complaint: No new complaints History of Present Illness: 88 yo female h/o HTN, hyperlipidemia, paroxysmal atrial fibrillation in NSR, bilary cirrhosis with portal gastropathy, GI bleed, duodenal ulcer, hemorrhoids s/p band ligation, polyps s/p polypectomy, chronic anemia and thrombocytopenia last seen in office 11/19/2018 presents with dyspnea, orthopnea, increased bilateral LE edema, right shoulder discomfort - Current Medication List Current Medications: Active Medications Carvedilol (Coreg -) 12.5 mg PO BID [facility] Last Admin: 04/17/19 09:14 Dose: 12.5 mg Ezetimibe (Zetia -) 10 mg PO HS [facility] Last Admin: 04/16/19 21:49 Dose: 10 mg Famotidine (Pepcid -) 20 mg PO BID [facility] Last Admin: 04/17/19 09:14 Dose: 20 mg Levothyroxine Sodium (Synthroid -) 50 mcg PO DAILY@0700 [facility] Last Admin: 04/17/19 06:11 Dose: 50 mcg Losartan Potassium (Cozaar -) 25 mg PO DAILY [facility] Last Admin: 04/17/19 09:14 Dose: 25 mg Oxycodone HCl (Roxicodone -) 5 mg PO Q6H PRN PRN Reason: PAIN LEVEL 4 - 6 Last Admin: 04/17/19 09:13 Dose: 5 mg Polyethylene Glycol (Miralax (For Daily Use) -) 17 gm PO [facility] Last Admin: 04/16/19 21:49 Dose: 17 grams Ursodiol (Actigal -) 300 mg PO TID [facility] Last Admin: 04/17/19 06:10 Dose: 300 mg - Objective Vital Signs: Vital Signs Temperature 97.9 F 04/16/19 22:00 Pulse Rate 67 04/16/19 22:00 Respiratory Rate 18 04/16/19 22:00 Blood Pressure 147/57 L 04/16/19 22:00 O2 Sat by Pulse Oximetry (%) 100 04/16/19 21:00 Elderly F not in distress c/o back pain HEENT: mm moist anemia, PERRLA EOMI NECK; No JVd No Bruit CHEST: minimal basal crepts EXT: trace edema feet , no calf tenderness [employer]: AOX3 non focal Labs: CBC, BMP 04/17/19 05:30 04/17/19 05:30 INR, PTT INR 1.30 (0.83-1.09) H 04/14/19 12:21 Problem List - Problems (1) CHF (congestive heart failure) Assessment/Plan: Will hold Lasix as LE swelling improved and rising Creat F/U BMP in am. Code(s): I50.9 - HEART FAILURE, UNSPECIFIED Qualifiers: Heart failure type: diastolic Heart failure chronicity: acute on chronic Qualified Code(s): I50.33 - Acute on chronic diastolic (congestive) heart failure (2) Hypothyroidism Assessment/Plan: On Levothyroxine Code(s): E03.9 - HYPOTHYROIDISM, UNSPECIFIED Qualifiers: Hypothyroidism type: unspecified Qualified Code(s): E03.9 - Hypothyroidism , unspecified (3) HTN (hypertension) Assessment/Plan: Well controlled Code(s): I10 - ESSENTIAL (PRIMARY) HYPERTENSION Qualifiers: Hypertension type: essential hypertension Qualified Code(s): I10 - Essential (primary) hypertension (4) Hyperlipidemia Assessment/Plan: On statin Code(s): E78.5 - HYPERLIPIDEMIA, UNSPECIFIED Qualifiers: Hyperlipidemia type: pure hypercholesterolemia Qualified Code(s): E78.00 - Pure hypercholesterolemia, unspecified; E78.0 - Pure hypercholesterolemia (5) Biliary cirrhosis Assessment/Plan: Cont current management Code(s): K74.5 - BILIARY CIRRHOSIS, UNSPECIFIED (6) Thrombocytopenia Assessment/Plan: due to Billiry Cirrhosis stable Code(s): D69.6 - THROMBOCYTOPENIA, UNSPECIFIED (7) CKD (chronic kidney disease) stage 3, GFR 30-59 ml/min Assessment/Plan: Rising Creatnine will hold Lasix F/U BMP in am. Code(s): N18.3 - CHRONIC KIDNEY DISEASE, STAGE 3 (MODERATE)
--- NOTE | 2019-04-17 12:19 | PN ---
Progress Note, Physician History of Present Illness: Dyspnea, orthopnea, increased bilateral LE edema, resolving with IV diuresis. - Current Medication List Current Medications: Active Medications Carvedilol (Coreg -) 12.5 mg PO BID [facility] Last Admin: 04/17/19 09:14 Dose: 12.5 mg Ezetimibe (Zetia -) 10 mg PO HS [facility] Last Admin: 04/16/19 21:49 Dose: 10 mg Famotidine (Pepcid -) 20 mg PO BID [facility] Last Admin: 04/17/19 09:14 Dose: 20 mg Levothyroxine Sodium (Synthroid -) 50 mcg PO DAILY@0700 [facility] Last Admin: 04/17/19 06:11 Dose: 50 mcg Losartan Potassium (Cozaar -) 25 mg PO DAILY [facility] Last Admin: 04/17/19 09:14 Dose: 25 mg Oxycodone HCl (Roxicodone -) 5 mg PO Q6H PRN PRN Reason: PAIN LEVEL 4 - 6 Last Admin: 04/17/19 09:13 Dose: 5 mg Polyethylene Glycol (Miralax (For Daily Use) -) 17 gm PO [facility] Last Admin: 04/16/19 21:49 Dose: 17 grams Ursodiol (Actigal -) 300 mg PO TID [facility] Last Admin: 04/17/19 06:10 Dose: 300 mg - Objective Vital Signs: Vital Signs Temperature 97.9 F 04/16/19 22:00 Pulse Rate 67 04/16/19 22:00 Respiratory Rate 18 04/16/19 22:00 Blood Pressure 147/57 L 04/16/19 22:00 O2 Sat by Pulse Oximetry (%) 100 04/16/19 21:00 Constitutional: Yes: No Distress, Calm Neck: Yes: Supple Cardiovascular: Yes: Regular Rate and Rhythm Respiratory: Yes: Regular, Diminished Gastrointestinal: Yes: Normal Bowel Sounds, Soft Edema: No Labs: CBC, BMP 04/17/19 05:30 04/17/19 05:30 INR, PTT INR 1.30 (0.83-1.09) H 04/14/19 12:21 Problem List - Problems (1) Fluid overload Code(s): E87.70 - FLUID OVERLOAD, UNSPECIFIED Qualifiers: Hypervolemia type: unspecified Qualified Code(s): E87.70 - Fluid overload, unspecified (2) CHF (congestive heart failure) Code(s): I50.9 - HEART FAILURE, UNSPECIFIED Qualifiers: Heart failure type: diastolic Heart failure chronicity: acute on chronic Qualified Code(s): I50.33 - Acute on chronic diastolic (congestive) heart failure (3) HTN (hypertension) Code(s): I10 - ESSENTIAL (PRIMARY) HYPERTENSION Qualifiers: Hypertension type: essential hypertension Qualified Code(s): I10 - Essential (primary) hypertension (4) History of bleeding peptic ulcer Code(s): Z87.11 - PERSONAL HISTORY OF PEPTIC ULCER DISEASE (5) Hypothyroidism Code(s): E03.9 - HYPOTHYROIDISM, UNSPECIFIED Qualifiers: Hypothyroidism type: unspecified Qualified Code(s): E03.9 - Hypothyroidism , unspecified (6) Paroxysmal atrial fibrillation Code(s): I48.0 - PAROXYSMAL ATRIAL FIBRILLATION (7) Shortness of breath Code(s): R06.02 - SHORTNESS OF BREATH (8) Hyperlipidemia Code(s): E78.5 - HYPERLIPIDEMIA, UNSPECIFIED Qualifiers: Hyperlipidemia type: pure hypercholesterolemia Qualified Code(s): E78.00 - Pure hypercholesterolemia, unspecified; E78.0 - Pure hypercholesterolemia Assessment/Plan Echocardiogram: 08/23/2018 Normal LV size and fxn with grade II diastolic dysfunction, normal RV size and fxn, normal biatrial sizes, mild AR, MR, mod TR RVSP 46 mmHg, mild [place] 1. Acute on chronic diastolic heart failure resolving 2. CAD visual coronary artery calcification on CT scan of the chest angina pectoris 2. Hypertensive heart disease 3. Hyperlipidemia 4. Hypothyroidism 5. PAF [id number] score of 5 not on a/c due to GI bleeds and thrombocytopenia P:1. Resume oral diuresis with monitor diuretic response, renal fxn and electrolytes 2. Continue carvedilol 12.5 bid, zetia 10 qd, losartan 25 qd as hemodynamics tolerate, Synthroid dose uptitrated per TSH 3. Eventual f/u in office
[2019-04-17] MEDS: EZETIMIBE 10 MG TABLET (FP) PO SCH (21:38)
[2019-04-17] MEDS: POLYETHYLENE GLYCOL 3350 119 GM BTL PO SCH (21:39)
[2019-04-18 06:13] VITALS: PULSE 65
[2019-04-18] MEDS: LEVOTHYROXINE NA 50 MCG TABLET (FP) PO SCH (06:31)
[2019-04-18] MEDS: URSODIOL 300 MG CAPSULE PO SCH ×2 (06:31→13:55)
[2019-04-18] MEDS: oxyCODONE HCL 5 MG TABLET PO PRN ×2 (07:48→13:55)
--- NOTE | 2019-04-18 09:16 | PN ---
Progress Note, Physician History of Present Illness: Dyspnea, orthopnea, increased bilateral LE edema, resolving after diuresis. - Current Medication List Current Medications: Active Medications Carvedilol (Coreg -) 12.5 mg PO BID [facility] Last Admin: 04/17/19 21:38 Dose: 12.5 mg Ezetimibe (Zetia -) 10 mg PO HS [facility] Last Admin: 04/17/19 21:38 Dose: 10 mg Famotidine (Pepcid -) 20 mg PO BID [facility] Last Admin: 04/17/19 21:38 Dose: 20 mg Levothyroxine Sodium (Synthroid -) 50 mcg PO DAILY@0700 [facility] Last Admin: 04/18/19 06:31 Dose: 50 mcg Losartan Potassium (Cozaar -) 25 mg PO DAILY [facility] Last Admin: 04/17/19 09:14 Dose: 25 mg Oxycodone HCl (Roxicodone -) 5 mg PO Q6H PRN PRN Reason: PAIN LEVEL 4 - 6 Last Admin: 04/18/19 07:48 Dose: 5 mg Polyethylene Glycol (Miralax (For Daily Use) -) 17 gm PO [facility] Last Admin: 04/17/19 21:39 Dose: 17 grams Ursodiol (Actigal -) 300 mg PO TID [facility] Last Admin: 04/18/19 06:31 Dose: 300 mg - Objective Vital Signs: Vital Signs Temperature 98.4 F 04/18/19 06:00 Pulse Rate 65 04/18/19 06:00 Respiratory Rate 18 04/18/19 06:00 Blood Pressure 126/65 04/18/19 06:00 O2 Sat by Pulse Oximetry (%) 100 04/17/19 21:00 Constitutional: Yes: No Distress, Calm Neck: Yes: Supple Cardiovascular: Yes: Regular Rate and Rhythm, Murmur (2/6 SM) Respiratory: Yes: Regular, Diminished, Rales Gastrointestinal: Yes: Normal Bowel Sounds, Soft Edema: No Labs: CBC, BMP 04/17/19 05:30 04/17/19 05:30 INR, PTT INR 1.30 (0.83-1.09) H 04/14/19 12:21 Problem List - Problems (1) Fluid overload Code(s): E87.70 - FLUID OVERLOAD, UNSPECIFIED Qualifiers: Hypervolemia type: unspecified Qualified Code(s): E87.70 - Fluid overload, unspecified (2) CHF (congestive heart failure) Code(s): I50.9 - HEART FAILURE, UNSPECIFIED Qualifiers: Heart failure type: diastolic Heart failure chronicity: acute on chronic Qualified Code(s): I50.33 - Acute on chronic diastolic (congestive) heart failure (3) HTN (hypertension) Code(s): I10 - ESSENTIAL (PRIMARY) HYPERTENSION Qualifiers: Hypertension type: essential hypertension Qualified Code(s): I10 - Essential (primary) hypertension (4) History of bleeding peptic ulcer Code(s): Z87.11 - PERSONAL HISTORY OF PEPTIC ULCER DISEASE (5) Hypothyroidism Code(s): E03.9 - HYPOTHYROIDISM, UNSPECIFIED Qualifiers: Hypothyroidism type: unspecified Qualified Code(s): E03.9 - Hypothyroidism , unspecified (6) Paroxysmal atrial fibrillation Code(s): I48.0 - PAROXYSMAL ATRIAL FIBRILLATION (7) Shortness of breath Code(s): R06.02 - SHORTNESS OF BREATH (8) Hyperlipidemia Code(s): E78.5 - HYPERLIPIDEMIA, UNSPECIFIED Qualifiers: Hyperlipidemia type: pure hypercholesterolemia Qualified Code(s): E78.00 - Pure hypercholesterolemia, unspecified; E78.0 - Pure hypercholesterolemia Assessment/Plan Echocardiogram: 08/23/2018 Normal LV size and fxn with grade II diastolic dysfunction, normal RV size and fxn, normal biatrial sizes, mild AR, MR, mod TR RVSP 46 mmHg, mild [place] 1. Acute on chronic diastolic heart failure resolving 2. CAD visual coronary artery calcification on CT scan of the chest angina pectoris 2. Hypertensive heart disease 3. Hyperlipidemia 4. Hypothyroidism 5. PAF [id number] score of 5 not on a/c due to GI bleeds and thrombocytopenia P:1. Resume oral diuresis Lasix 40 qd with monitor diuretic response, renal fxn and electrolytes 2. Continue carvedilol 12.5 bid, zetia 10 qd, losartan 25 qd as hemodynamics tolerate, Synthroid dose uptitrated per TSH 3. Eventual f/u in office
--- NOTE | 2019-04-18 09:22 | DS ---
Physical Examination Vital Signs: Vital Signs Temperature 98.4 F 04/18/19 06:00 Pulse Rate 65 04/18/19 06:00 Respiratory Rate 18 04/18/19 06:00 Blood Pressure 126/65 04/18/19 06:00 O2 Sat by Pulse Oximetry (%) 100 04/17/19 21:00 Findings/Remarks: Admitted with CHF ,treated with LV lasix ,improved discharged back to SNF Constitutional: Yes: No Distress Eyes: Yes: WNL HENT: Yes: WNL Neck: Yes: WNL Cardiovascular: Yes: Regular Rate and Rhythm Respiratory: Yes: WNL Gastrointestinal: Yes: WNL Renal/: Yes: WNL Breast(s): Yes: WNL Extremities: Yes: WNL Edema: LUE: Trace, RUE: Trace, LLE: Trace, RLE: Trace Peripheral Pulses WNL: Yes Neurological: Yes: Alert ...Motor Strength: WNL Psychiatric: Yes: Alert Labs: CBC, BMP 04/17/19 05:30 04/17/19 05:30 Discharge Summary Problems reviewed: Yes Reason For Visit: ACUTE ON CHRONIC CHF Current Active Problems Biliary cirrhosis (Acute) CKD (chronic kidney disease) stage 3, GFR 30-59 ml/min (Acute) Fluid overload (Acute) Hyperlipidemia (Acute) Thrombocytopenia (Acute) - Instructions Referrals: Navin Calloway MD [Primary Care Provider] - - Home Medications Comprehensive Discharge Medication List: Ambulatory Orders Ezetimibe [Zetia] 10 mg PO HS 03/07/14 Ranitidine [Zantac -] 150 mg PO BID #180 tablet 03/10/16 Carvedilol [Coreg -] 12.5 mg PO BID 02/25/19 Levothyroxine [Synthroid -] 50 mcg PO DAILY@0700 tablet 03/01/19 Furosemide [Lasix -] 40 mg PO DAILY 03/10/19 Ursodiol [Actigal -] 300 mg PO TID 03/10/19 Losartan Potassium [Cozaar -] 25 mg PO DAILY tablet 03/15/19 Polyethylene Glycol 3350 [Miralax 119 gm Btl -] 17 gm PO HS bottle 03/15/19
[2019-04-18 10:05] VITALS: BP 112/56; TEMP 97.9
[2019-04-18] MEDS: CARVEDILOL 12.5 MG TABLET (FP) PO SCH (10:07)
[2019-04-18] MEDS: LOSARTAN POTASSIUM 25 MG TABLET PO SCH (10:07)
[2019-04-18] MEDS: FAMOTIDINE 20 MG TABLET PO SCH (10:07)
[2019-04-18] MEDS ORDERED: PT OWN MED DRAWER 7, Y5N ONE (13:54)
[2019-04-19] MEDS ORDERED: FUROSEMIDE 40 MG TABLET (FP) PO SCH (10:00)
== END 2019-04-18 14:23 | DRG 291 ==
LOC: JER 10:21 → JERBED 14:32 → J8W 15:58
PROVIDERS: ADMIT Internal Medicine; ATTEND Internal Medicine
DX: I13.0 Hypertensive heart and chronic kidney disease with heart failure and stage 1 through stage 4 chronic kidney disease, or unspecified chronic kidney disease (principal); I50.33 Acute on chronic diastolic (congestive) heart failure; D61.818 Other pancytopenia; I48.0 Paroxysmal atrial fibrillation; E03.9 Hypothyroidism, unspecified; E78.5 Hyperlipidemia, unspecified; I25.10 Atherosclerotic heart disease of native coronary artery without angina pectoris; K74.5 Biliary cirrhosis, unspecified; N18.3 Chronic kidney disease, stage 3 (moderate); D69.6 Thrombocytopenia, unspecified; E87.70 Fluid overload, unspecified
CPT/HCPCS: 36415; 71045-TC-FY; 73030-TC-RT-FY; 80048; 80053; 80061; 81003; 83721; 83735; 83880; 84484; 85025; 85027; 85610; 87086; 93005; 93010; 97116-GP; 99285-25

== ENCOUNTER 2020-08-20 13:02 | Inpatient (IN) | payer OTHER, BC ==
[2020-08-20] MEDS ORDERED: ACETAMINOPHEN 1000 MG/100 ML VIAL (NON FORMULARY) IVPB ONE (14:07)
[2020-08-20 14:25] LABS: BASO % 0.4 % (0-2.0); EOS % 3.8 % (0-4.5); HEMATOCRIT 28.4 % (32.4-45.2); HEMOGLOBIN 9.6 GM/dL (10.7-15.3); LYMPH % 21.1 % (8-40); MCH 31.3 pg (25.7-33.7); MCHC 33.7 g/dl (32.0-36.0); MEAN CELL VOLUME 92.8 fl (80-96); MEAN PLT VOLUME 11.8 fl (7.5-11.1); MONO % 10.3 % (3.8-10.2); NEUT % 64.4 % (42.8-82.8); PLATELET COUNT 71 K/MM3 (134-434); RBC 3.06 M/mm3 (3.60-5.2); RDW 14.4 % (11.6-15.6); WHITE BLOOD COUNT 4.5 K/mm3 (4.0-10.0)
[2020-08-20 14:38] LABS: INR 1.17 (0.83-1.09); PROTHROMBIN TIME (PATIENT) 14.3 SEC (9.7-13.0)
[2020-08-20] MEDS ORDERED: FAMOTIDINE 20 MG/50 ML IVPB 20 MG/50 ML MG IVPB ONE ×2 (14:49→14:58)
[2020-08-20] MEDS ORDERED: ACETAMINOPHEN INJECTION 100 ML IVPB ONE (14:49)
[2020-08-20 14:51] LABS: CHLORIDE 92 mmol/L (98-107); POTASSIUM 4.3 mmol/L (3.5-5.1); SODIUM 124 mmol/L (136-145)
[2020-08-20 14:54] LABS: ALBUMIN 3.6 g/dl (3.4-5.0); ANION GAP 11 MMOL/L (8-16); BLOOD UREA NITROGEN 98.1 mg/dL (7-18); CO2 21 mmol/L (21-32); GLUCOSE,RANDOM 117 mg/dL (74-106); LIPASE 327 U/L (73-393)
[2020-08-20 14:55] LABS: MAGNESIUM 3.1 mg/dL (1.8-2.4)
[2020-08-20 14:57] LABS: CREATININE 2.6 mg/dL (0.55-1.3); SGOT/AST 126 U/L (15-37); SGPT/ALT 116 U/L (13-61)
[2020-08-20 14:58] LABS: BILIRUBIN,TOTAL 0.9 mg/dL (0.2-1)
[2020-08-20 15:00] LABS: ALK PHOS 166 U/L (45-117); TOT PROT 6.8 g/dl (6.4-8.2)
[2020-08-20] MEDS ORDERED: SODIUM CHLORIDE 1,000 ML IV STA (15:19)
[2020-08-20] MEDS ORDERED: SODIUM CHLORIDE 500 ML IV STA (16:13)
[2020-08-20] MEDS: MAG HYDROX/AL HYDROX/SIMETH 30 ML UNIT-DOSE CUP PO PRN (18:10)
[2020-08-20 18:54] LABS: URINE APPEARANCE CLEAR; URINE BILIRUBIN NEGATIVE (NEGATIVE); URINE COLOR YELLOW; URINE GLUCOSE (UA) NEGATIVE (NEGATIVE); URINE KETONE NEGATIVE (NEGATIVE); URINE LEUK ESTERASE NEGATIVE (NEGATIVE); URINE NITRITE NEGATIVE (NEGATIVE); URINE PROTEIN NEGATIVE (NEGATIVE); URINE UROBILINOGEN 0.2 mg/dL (0.2-1.0)
[2020-08-20] MEDS ORDERED: ACETAMINOPHEN 325 MG TABLET (FP) ONE (19:05)
[2020-08-21] MEDS: AZITHROMYCIN 250 MG TABLET PO SCH (09:57)
[2020-08-21] MEDS: LOSARTAN POTASSIUM 50 MG TABLET PO SCH (09:59)
[2020-08-21] MEDS: CARVEDILOL 12.5 MG TABLET (FP) PO SCH ×2 (09:59→21:45)
[2020-08-21] MEDS: FUROSEMIDE 40 MG TABLET (FP) PO SCH (10:00)
[2020-08-21] MEDS: amLODIPine BESYLATE 5 MG TABLET (FP) PO SCH (10:00)
[2020-08-21] MEDS: URSODIOL 300 MG CAPSULE PO SCH ×2 (10:00→21:45)
[2020-08-21] MEDS: PANTOPRAZOLE SODIUM 40 MG VIAL IVPUSH SCH (21:45)
[2020-08-22] MEDS: LEVOTHYROXINE NA 50 MCG TABLET (FP) PO SCH (06:27)
[2020-08-22 07:56] LABS: BASO % 0.9 % (0-2.0); EOS % 4.5 % (0-4.5); HEMOGLOBIN 9.4 GM/dL (10.7-15.3); LYMPH % 25.7 % (8-40); MCH 31.7 pg (25.7-33.7); MCHC 34.7 g/dl (32.0-36.0); MEAN CELL VOLUME 91.3 fl (80-96); MEAN PLT VOLUME 10.3 fl (7.5-11.1); NEUT % 57.9 % (42.8-82.8); PLATELET COUNT 59 K/MM3 (134-434); RBC 2.95 M/mm3 (3.60-5.2); RDW 15.1 % (11.6-15.6); RETICULOCYTES 1.82 % (0.5-1.5); WHITE BLOOD COUNT 3.6 K/mm3 (4.0-10.0)
[2020-08-22 08:18] LABS: POTASSIUM 4.6 mmol/L (3.5-5.1)
[2020-08-22 08:22] LABS: ALBUMIN 3.2 g/dl (3.4-5.0); BLOOD UREA NITROGEN 94.2 mg/dL (7-18)
[2020-08-22 08:26] LABS: CREATININE 2.5 mg/dL (0.55-1.3)
[2020-08-22 08:27] LABS: BILIRUBIN,TOTAL 0.9 mg/dL (0.2-1); TOT PROT 6.4 g/dl (6.4-8.2)
[2020-08-22] MEDS: AZITHROMYCIN 250 MG TABLET PO SCH (10:00)
[2020-08-22] MEDS: FUROSEMIDE 40 MG TABLET (FP) PO SCH (10:01)
[2020-08-22] MEDS: LOSARTAN POTASSIUM 50 MG TABLET PO SCH ×2 (10:01→19:27)
[2020-08-22] MEDS: URSODIOL 300 MG CAPSULE PO SCH ×2 (10:02→21:02)
[2020-08-22] MEDS: amLODIPine BESYLATE 5 MG TABLET (FP) PO SCH ×2 (10:02→19:27)
[2020-08-22] MEDS: PANTOPRAZOLE SODIUM 40 MG VIAL IVPUSH SCH ×2 (10:02→21:02)
[2020-08-22] MEDS: CARVEDILOL 12.5 MG TABLET (FP) PO SCH ×3 (10:02→21:02)
[2020-08-23] MEDS: LEVOTHYROXINE NA 50 MCG TABLET (FP) PO SCH (06:06)
[2020-08-23] MEDS: LOSARTAN POTASSIUM 50 MG TABLET PO SCH (11:52)
[2020-08-23] MEDS: amLODIPine BESYLATE 5 MG TABLET (FP) PO SCH (11:52)
[2020-08-23] MEDS: AZITHROMYCIN 250 MG TABLET PO SCH (11:52)
[2020-08-23] MEDS: URSODIOL 300 MG CAPSULE PO SCH ×2 (11:52→21:29)
[2020-08-23] MEDS: FUROSEMIDE 40 MG TABLET (FP) PO SCH (11:52)
[2020-08-23] MEDS: PANTOPRAZOLE SODIUM 40 MG VIAL IVPUSH SCH ×2 (11:53→21:29)
[2020-08-23] MEDS: CARVEDILOL 12.5 MG TABLET (FP) PO SCH ×2 (11:53→21:29)
[2020-08-24] MEDS: LEVOTHYROXINE NA 50 MCG TABLET (FP) PO SCH (06:12)
[2020-08-24] MEDS: URSODIOL 300 MG CAPSULE PO SCH ×2 (10:22→22:16)
[2020-08-24] MEDS: FUROSEMIDE 40 MG TABLET (FP) PO SCH (10:22)
[2020-08-24] MEDS: amLODIPine BESYLATE 5 MG TABLET (FP) PO SCH (10:22)
[2020-08-24] MEDS: PANTOPRAZOLE SODIUM 40 MG VIAL IVPUSH SCH ×2 (10:23→22:16)
[2020-08-24] MEDS: CARVEDILOL 12.5 MG TABLET (FP) PO SCH ×2 (10:23→22:16)
[2020-08-24] MEDS: LOSARTAN POTASSIUM 50 MG TABLET PO SCH (10:23)
[2020-08-24] MEDS ORDERED: LIDOCAINE 5% TOPICAL PATCH TP ONE (23:41)
[2020-08-25] MEDS: LEVOTHYROXINE NA 50 MCG TABLET (FP) PO SCH (06:09)
[2020-08-25 08:24] LABS: HEMATOCRIT 24.5 % (32.4-45.2); HEMOGLOBIN 8.6 GM/dL (10.7-15.3); MCH 32.1 pg (25.7-33.7); MCHC 35.2 g/dl (32.0-36.0); MEAN CELL VOLUME 91.2 fl (80-96); MEAN PLT VOLUME 11.2 fl (7.5-11.1); PLATELET COUNT 45 K/MM3 (134-434); RBC 2.68 M/mm3 (3.60-5.2); RDW 14.9 % (11.6-15.6); WHITE BLOOD COUNT 3.1 K/mm3 (4.0-10.0)
[2020-08-25 08:48] LABS: BLOOD UREA NITROGEN 98.4 mg/dL (7-18); CALCIUM 8.7 mg/dL (8.5-10.1)
[2020-08-25 08:52] LABS: CREATININE 2.8 mg/dL (0.55-1.3)
[2020-08-25 08:53] LABS: BILIRUBIN,TOTAL 0.8 mg/dL (0.2-1); TOT PROT 5.7 g/dl (6.4-8.2)
[2020-08-25] MEDS: CARVEDILOL 12.5 MG TABLET (FP) PO SCH ×2 (10:37→21:15)
[2020-08-25] MEDS: LOSARTAN POTASSIUM 50 MG TABLET PO SCH (10:38)
[2020-08-25] MEDS: amLODIPine BESYLATE 5 MG TABLET (FP) PO SCH (10:38)
[2020-08-25] MEDS: URSODIOL 300 MG CAPSULE PO SCH ×2 (10:38→21:15)
[2020-08-25] MEDS: LIDOCAINE 5% TOPICAL PATCH TP SCH (10:45)
[2020-08-25] MEDS ORDERED: LIDOCAINE PATCH REMOVAL MC ONE (11:00)
[2020-08-25] MEDS: PANTOPRAZOLE SODIUM 40 MG VIAL IVPUSH SCH ×2 (11:28→21:15)
[2020-08-25] MEDS: ALBUMIN HUMAN 25% 100 ML VIAL IVPB SCH (21:15)
[2020-08-25] MEDS: LIDOCAINE PATCH REMOVAL MC SCH (21:17)
[2020-08-26] MEDS: ALBUMIN HUMAN 25% 100 ML VIAL IVPB SCH (01:06)
[2020-08-26] MEDS: LEVOTHYROXINE NA 50 MCG TABLET (FP) PO SCH (06:15)
[2020-08-26 08:18] LABS: POTASSIUM 5.2 mmol/L (3.5-5.1)
[2020-08-26 08:19] LABS: CALCIUM 9.1 mg/dL (8.5-10.1)
[2020-08-26 08:23] LABS: CREATININE 2.8 mg/dL (0.55-1.3)
[2020-08-26 08:24] LABS: BILIRUBIN,TOTAL 0.8 mg/dL (0.2-1)
[2020-08-26 08:25] LABS: TOT PROT 6.2 g/dl (6.4-8.2)
[2020-08-26 08:29] LABS: ALBUMIN 3.6 g/dl (3.4-5.0)
[2020-08-26 08:39] LABS: BLOOD UREA NITROGEN 107.1 mg/dL (7-18)
[2020-08-26] MEDS: LIDOCAINE 5% TOPICAL PATCH TP SCH (09:18)
[2020-08-26] MEDS: CARVEDILOL 12.5 MG TABLET (FP) PO SCH ×2 (09:18→21:41)
[2020-08-26] MEDS: URSODIOL 300 MG CAPSULE PO SCH ×2 (09:18→21:41)
[2020-08-26] MEDS: PANTOPRAZOLE SODIUM 40 MG VIAL IVPUSH SCH ×2 (11:13→21:38)
[2020-08-26] MEDS ORDERED: SODIUM ZIRCONIUM CYCLOSILICATE (LOKELMA) 10 GM PACKET PO ONE (15:28)
[2020-08-26] MEDS ORDERED: FUROSEMIDE 40 MG/4 ML INJECTABLE VIAL IVPUSH ONE (15:31)
[2020-08-26] MEDS: ALBUMIN HUMAN 25% 12.5 GM/50 ML VIAL IVPB SCH ×2 (18:25→19:01)
[2020-08-26] MEDS: LIDOCAINE PATCH REMOVAL MC SCH (21:54)
[2020-08-27] MEDS: LEVOTHYROXINE NA 50 MCG TABLET (FP) PO SCH (06:21)
[2020-08-27 07:04] LABS: POTASSIUM 4.8 mmol/L (3.5-5.1)
[2020-08-27 07:08] LABS: ALBUMIN 3.8 g/dl (3.4-5.0); BLOOD UREA NITROGEN 97.6 mg/dL (7-18)
[2020-08-27 07:11] LABS: CREATININE 2.6 mg/dL (0.55-1.3)
[2020-08-27 07:12] LABS: BILIRUBIN,TOTAL 0.8 mg/dL (0.2-1); TOT PROT 6.3 g/dl (6.4-8.2)
[2020-08-27] MEDS: LIDOCAINE 5% TOPICAL PATCH TP SCH (11:26)
[2020-08-27] MEDS: URSODIOL 300 MG CAPSULE PO SCH ×2 (11:26→21:27)
[2020-08-27] MEDS: PANTOPRAZOLE SODIUM 40 MG VIAL IVPUSH SCH ×2 (11:26→21:27)
[2020-08-27] MEDS: CARVEDILOL 12.5 MG TABLET (FP) PO SCH ×2 (11:26→21:27)
[2020-08-27] MEDS ORDERED: FUROSEMIDE 40 MG/4 ML INJECTABLE VIAL IVPUSH ONE (13:15)
[2020-08-27] MEDS: ALBUMIN HUMAN 25% 12.5 GM/50 ML VIAL IVPB SCH ×2 (14:00→21:25)
[2020-08-27] MEDS ORDERED: traMADol HCL 50 MG TABLET PO ONE (14:25)
[2020-08-27] MEDS ORDERED: PT OWN MED DRAWER 7, Y5N ONE ×2 (21:13→21:53)
[2020-08-27] MEDS: LIDOCAINE PATCH REMOVAL MC SCH (21:34)
[2020-08-28] MEDS ORDERED: LIDOCAINE 5% TOPICAL PATCH TP ONE (00:28)
[2020-08-28] MEDS ORDERED: traMADol HCL 50 MG TABLET PO PRN (00:29)
[2020-08-28] MEDS ORDERED: PT OWN MED DRAWER 7, Y5N ONE (01:54)
[2020-08-28] MEDS: ALBUMIN HUMAN 25% 12.5 GM/50 ML VIAL IVPB SCH ×2 (02:07→09:39)
[2020-08-28] MEDS: LEVOTHYROXINE NA 50 MCG TABLET (FP) PO SCH (06:36)
[2020-08-28 09:09] LABS: POTASSIUM 4.7 mmol/L (3.5-5.1)
[2020-08-28 09:13] LABS: ALBUMIN 4.1 g/dl (3.4-5.0); CALCIUM 9.1 mg/dL (8.5-10.1)
[2020-08-28 09:14] LABS: BLOOD UREA NITROGEN 91.7 mg/dL (7-18); MAGNESIUM 3.2 mg/dL (1.8-2.4)
[2020-08-28 09:17] LABS: CREATININE 2.4 mg/dL (0.55-1.3); PHOSPHOROUS 4.5 mg/dL (2.5-4.9)
[2020-08-28 09:18] LABS: BILIRUBIN,TOTAL 0.9 mg/dL (0.2-1); TOT PROT 6.9 g/dl (6.4-8.2)
[2020-08-28] MEDS: URSODIOL 300 MG CAPSULE PO SCH ×2 (09:39→22:09)
[2020-08-28] MEDS: CARVEDILOL 12.5 MG TABLET (FP) PO SCH ×2 (09:39→22:09)
[2020-08-28] MEDS: PANTOPRAZOLE SODIUM 40 MG VIAL IVPUSH SCH ×2 (09:40→22:09)
[2020-08-28] MEDS: LIDOCAINE 5% TOPICAL PATCH TP SCH (09:40)
[2020-08-28] MEDS ORDERED: FUROSEMIDE 40 MG/4 ML INJECTABLE VIAL IVPUSH ONE (12:45)
[2020-08-28] MEDS ORDERED: POLYETHYLENE GLYCOL 3350 119 GM BTL PO ONE (12:46)
[2020-08-28] MEDS ORDERED: traMADol HCL 50 MG TABLET PO ONE (13:00)
[2020-08-28] MEDS: traMADol HCL 50 MG TABLET PO PRN (20:38)
[2020-08-28] MEDS: LIDOCAINE PATCH REMOVAL MC SCH (22:09)
[2020-08-29] MEDS: LEVOTHYROXINE NA 50 MCG TABLET (FP) PO SCH (06:14)
[2020-08-29 07:10] LABS: BASO % 0.7 % (0-2.0); EOS % 4.4 % (0-4.5); HEMATOCRIT 23.2 % (32.4-45.2); HEMOGLOBIN 7.8 GM/dL (10.7-15.3); LYMPH % 19.8 % (8-40); MCH 31.1 pg (25.7-33.7); MCHC 33.7 g/dl (32.0-36.0); MEAN CELL VOLUME 92.4 fl (80-96); MEAN PLT VOLUME 10.9 fl (7.5-11.1); MONO % 11.5 % (3.8-10.2); NEUT % 63.6 % (42.8-82.8); PLATELET COUNT 38 K/MM3 (134-434); RBC 2.51 M/mm3 (3.60-5.2); RDW 14.6 % (11.6-15.6); WHITE BLOOD COUNT 2.3 K/mm3 (4.0-10.0)
[2020-08-29 07:40] LABS: POTASSIUM 4.8 mmol/L (3.5-5.1)
[2020-08-29 07:44] LABS: ALBUMIN 4.1 g/dl (3.4-5.0); BLOOD UREA NITROGEN 87.8 mg/dL (7-18); CALCIUM 9.2 mg/dL (8.5-10.1)
[2020-08-29 07:48] LABS: CREATININE 2.4 mg/dL (0.55-1.3); PHOSPHOROUS 4.5 mg/dL (2.5-4.9)
[2020-08-29 07:49] LABS: TOT PROT 6.8 g/dl (6.4-8.2)
[2020-08-29] MEDS: traMADol HCL 50 MG TABLET PO PRN ×3 (08:59→21:23)
[2020-08-29] MEDS: CARVEDILOL 12.5 MG TABLET (FP) PO SCH ×2 (09:56→21:12)
[2020-08-29] MEDS: URSODIOL 300 MG CAPSULE PO SCH ×2 (09:56→21:12)
[2020-08-29] MEDS: PANTOPRAZOLE SODIUM 40 MG VIAL IVPUSH SCH ×2 (09:56→21:11)
[2020-08-29] MEDS: LIDOCAINE 5% TOPICAL PATCH TP SCH (09:57)
[2020-08-29] MEDS ORDERED: FUROSEMIDE 40 MG/4 ML INJECTABLE VIAL IVPUSH ONE (12:30)
[2020-08-29] MEDS: DOCUSATE SODIUM 100 MG CAPSULE (FP) PO SCH ×2 (13:56→21:12)
[2020-08-29] MEDS: NYSTATIN POWDER 100,000 UNITS/GM - 15 GM TOPICAL POWDER TP SCH ×2 (13:56→23:43)
[2020-08-29] MEDS: LIDOCAINE PATCH REMOVAL MC SCH (21:24)
[2020-08-30] MEDS: traMADol HCL 50 MG TABLET PO PRN ×3 (04:35→21:49)
[2020-08-30] MEDS: DOCUSATE SODIUM 100 MG CAPSULE (FP) PO SCH ×3 (06:36→21:49)
[2020-08-30] MEDS: LEVOTHYROXINE NA 50 MCG TABLET (FP) PO SCH (06:36)
[2020-08-30 07:54] LABS: HEMOGLOBIN 7.8 GM/dL (10.7-15.3); MCH 31.3 pg (25.7-33.7); MCHC 33.9 g/dl (32.0-36.0); MEAN CELL VOLUME 92.3 fl (80-96); MEAN PLT VOLUME 11.3 fl (7.5-11.1); PLATELET COUNT 38 K/MM3 (134-434); RBC 2.49 M/mm3 (3.60-5.2); RDW 14.6 % (11.6-15.6); WHITE BLOOD COUNT 2.5 K/mm3 (4.0-10.0)
[2020-08-30 08:19] LABS: POTASSIUM 4.9 mmol/L (3.5-5.1)
[2020-08-30 08:21] LABS: BLOOD UREA NITROGEN 90.6 mg/dL (7-18); CALCIUM 9.3 mg/dL (8.5-10.1); MAGNESIUM 3.2 mg/dL (1.8-2.4)
[2020-08-30 08:24] LABS: CREATININE 2.4 mg/dL (0.55-1.3); PHOSPHOROUS 4.5 mg/dL (2.5-4.9)
[2020-08-30] MEDS ORDERED: ONDANSETRON *ODT* 4 MG TABLET SL ONE (09:45)
[2020-08-30] MEDS: URSODIOL 300 MG CAPSULE PO SCH ×2 (10:58→21:49)
[2020-08-30] MEDS: CARVEDILOL 12.5 MG TABLET (FP) PO SCH ×2 (10:58→21:49)
[2020-08-30] MEDS: PANTOPRAZOLE SODIUM 40 MG VIAL IVPUSH SCH ×2 (10:58→21:49)
[2020-08-30] MEDS: LIDOCAINE 5% TOPICAL PATCH TP SCH (11:03)
[2020-08-30] MEDS: NYSTATIN POWDER 100,000 UNITS/GM - 15 GM TOPICAL POWDER TP SCH ×2 (11:03→21:50)
[2020-08-30] MEDS ORDERED: ALBUTEROL SO4 2.5/IPRATROPIUM 0.5 INH SOL 3 ML VIAL.NEB. NEB PRN (16:22)
[2020-08-30] MEDS: LIDOCAINE PATCH REMOVAL MC SCH (21:50)
[2020-08-31] MEDS: LEVOTHYROXINE NA 50 MCG TABLET (FP) PO SCH (06:49)
[2020-08-31] MEDS: DOCUSATE SODIUM 100 MG CAPSULE (FP) PO SCH ×3 (06:49→22:03)
[2020-08-31] MEDS: CARVEDILOL 12.5 MG TABLET (FP) PO SCH ×2 (09:41→22:02)
[2020-08-31] MEDS: LIDOCAINE 5% TOPICAL PATCH TP SCH (09:41)
[2020-08-31] MEDS: NYSTATIN POWDER 100,000 UNITS/GM - 15 GM TOPICAL POWDER TP SCH ×2 (09:41→22:03)
[2020-08-31] MEDS: URSODIOL 300 MG CAPSULE PO SCH ×2 (09:41→22:02)
[2020-08-31] MEDS: PANTOPRAZOLE SODIUM 40 MG VIAL IVPUSH SCH ×2 (09:42→22:03)
[2020-08-31] MEDS: traMADol HCL 50 MG TABLET PO PRN ×2 (09:42→22:02)
[2020-08-31] MEDS: LIDOCAINE PATCH REMOVAL MC SCH (22:03)
[2020-09-01] MEDS: DOCUSATE SODIUM 100 MG CAPSULE (FP) PO SCH ×3 (06:37→21:37)
[2020-09-01] MEDS: LEVOTHYROXINE NA 50 MCG TABLET (FP) PO SCH (06:37)
[2020-09-01] MEDS: traMADol HCL 50 MG TABLET PO PRN ×3 (06:37→21:40)
[2020-09-01] MEDS: LACTULOSE 20 GM/30 ML UDC (FOR ORAL USE ONLY) PO PRN ×2 (06:38→15:35)
[2020-09-01 07:40] LABS: BASO % 0.5 % (0-2.0); EOS % 3.3 % (0-4.5); HEMATOCRIT 23.8 % (32.4-45.2); HEMOGLOBIN 8.1 GM/dL (10.7-15.3); LYMPH % 17.1 % (8-40); MCH 31.4 pg (25.7-33.7); MCHC 33.9 g/dl (32.0-36.0); MEAN CELL VOLUME 92.6 fl (80-96); MEAN PLT VOLUME 10.9 fl (7.5-11.1); MONO % 9.4 % (3.8-10.2); NEUT % 69.7 % (42.8-82.8); PLATELET COUNT 45 K/MM3 (134-434); RBC 2.57 M/mm3 (3.60-5.2); RDW 14.7 % (11.6-15.6); WHITE BLOOD COUNT 3.5 K/mm3 (4.0-10.0)
[2020-09-01 07:59] LABS: POTASSIUM 5.2 mmol/L (3.5-5.1)
[2020-09-01 08:03] LABS: CALCIUM 9.8 mg/dL (8.5-10.1)
[2020-09-01 08:04] LABS: MAGNESIUM 3.2 mg/dL (1.8-2.4)
[2020-09-01 08:07] LABS: CREATININE 2.7 mg/dL (0.55-1.3); PHOSPHOROUS 3.9 mg/dL (2.5-4.9)
[2020-09-01] MEDS: MAG HYDROX/AL HYDROX/SIMETH 30 ML UNIT-DOSE CUP PO PRN (09:20)
[2020-09-01] MEDS: URSODIOL 300 MG CAPSULE PO SCH ×2 (09:20→21:36)
[2020-09-01] MEDS: CARVEDILOL 12.5 MG TABLET (FP) PO SCH ×2 (09:20→21:37)
[2020-09-01] MEDS: NYSTATIN POWDER 100,000 UNITS/GM - 15 GM TOPICAL POWDER TP SCH ×2 (09:21→21:37)
[2020-09-01] MEDS: LIDOCAINE 5% TOPICAL PATCH TP SCH (09:21)
[2020-09-01] MEDS: PANTOPRAZOLE SODIUM 40 MG VIAL IVPUSH SCH ×2 (09:21→21:37)
[2020-09-01] MEDS: SIMETHICONE 80 MG TAB.CHEW (FP) PO PRN ×2 (13:12→21:37)
[2020-09-01] MEDS: LIDOCAINE PATCH REMOVAL MC SCH (21:37)
[2020-09-02] MEDS: DOCUSATE SODIUM 100 MG CAPSULE (FP) PO SCH ×3 (05:27→21:24)
[2020-09-02] MEDS: traMADol HCL 50 MG TABLET PO PRN ×2 (05:27→21:24)
[2020-09-02] MEDS: LEVOTHYROXINE NA 50 MCG TABLET (FP) PO SCH (06:09)
[2020-09-02] MEDS: MAG HYDROX/AL HYDROX/SIMETH 30 ML UNIT-DOSE CUP PO PRN ×2 (06:48→21:23)
[2020-09-02 08:15] LABS: BASO % 0.5 % (0-2.0); EOS % 3.9 % (0-4.5); HEMATOCRIT 23.7 % (32.4-45.2); LYMPH % 14.6 % (8-40); MCH 31.3 pg (25.7-33.7); MCHC 33.7 g/dl (32.0-36.0); MEAN CELL VOLUME 92.9 fl (80-96); MEAN PLT VOLUME 11.3 fl (7.5-11.1); MONO % 10.6 % (3.8-10.2); NEUT % 70.4 % (42.8-82.8); PLATELET COUNT 43 K/MM3 (134-434); RBC 2.55 M/mm3 (3.60-5.2); RDW 14.8 % (11.6-15.6); WHITE BLOOD COUNT 3.6 K/mm3 (4.0-10.0)
[2020-09-02 08:41] LABS: BLOOD UREA NITROGEN 87.1 mg/dL (7-18); CALCIUM 9.7 mg/dL (8.5-10.1)
[2020-09-02 08:44] LABS: CREATININE 2.5 mg/dL (0.55-1.3)
[2020-09-02] MEDS: PANTOPRAZOLE SODIUM 40 MG VIAL IVPUSH SCH ×2 (12:15→21:23)
[2020-09-02] MEDS: CARVEDILOL 12.5 MG TABLET (FP) PO SCH ×2 (12:15→21:24)
[2020-09-02] MEDS: LIDOCAINE 5% TOPICAL PATCH TP SCH ×2 (12:15→19:14)
[2020-09-02] MEDS: URSODIOL 300 MG CAPSULE PO SCH ×2 (12:15→21:24)
[2020-09-02] MEDS: NYSTATIN POWDER 100,000 UNITS/GM - 15 GM TOPICAL POWDER TP SCH ×2 (12:16→21:24)
[2020-09-02] MEDS: LIDOCAINE PATCH REMOVAL MC SCH (21:24)
[2020-09-03] MEDS: LEVOTHYROXINE NA 50 MCG TABLET (FP) PO SCH (06:01)
[2020-09-03] MEDS: traMADol HCL 50 MG TABLET PO PRN (06:01)
[2020-09-03] MEDS: DOCUSATE SODIUM 100 MG CAPSULE (FP) PO SCH ×2 (06:01→15:02)
[2020-09-03] MEDS: MAG HYDROX/AL HYDROX/SIMETH 30 ML UNIT-DOSE CUP PO PRN (06:01)
[2020-09-03 08:15] LABS: BASO % 0.3 % (0-2.0); EOS % 3.3 % (0-4.5); HEMATOCRIT 23.3 % (32.4-45.2); HEMOGLOBIN 7.8 GM/dL (10.7-15.3); LYMPH % 16.4 % (8-40); MCH 31.3 pg (25.7-33.7); MCHC 33.3 g/dl (32.0-36.0); MEAN CELL VOLUME 93.8 fl (80-96); MEAN PLT VOLUME 10.5 fl (7.5-11.1); PLATELET COUNT 43 K/MM3 (134-434); RBC 2.49 M/mm3 (3.60-5.2); RDW 15.1 % (11.6-15.6); WHITE BLOOD COUNT 3.3 K/mm3 (4.0-10.0)
[2020-09-03 08:37] LABS: POTASSIUM 5.2 mmol/L (3.5-5.1)
[2020-09-03 08:40] LABS: CALCIUM 9.6 mg/dL (8.5-10.1)
[2020-09-03 08:43] LABS: BLOOD UREA NITROGEN 87.9 mg/dL (7-18)
[2020-09-03 08:44] LABS: CREATININE 2.4 mg/dL (0.55-1.3)
[2020-09-03] MEDS ORDERED: PT OWN MED DRAWER 7, Y5N ONE (10:31)
[2020-09-03] MEDS: URSODIOL 300 MG CAPSULE PO SCH ×2 (11:02→22:30)
[2020-09-03] MEDS: CARVEDILOL 12.5 MG TABLET (FP) PO SCH ×2 (11:03→22:30)
[2020-09-03] MEDS: PANTOPRAZOLE SODIUM 40 MG VIAL IVPUSH SCH (11:03)
[2020-09-03] MEDS: LIDOCAINE 5% TOPICAL PATCH TP SCH (11:03)
[2020-09-03] MEDS: NYSTATIN POWDER 100,000 UNITS/GM - 15 GM TOPICAL POWDER TP SCH ×2 (11:04→22:31)
[2020-09-03] MEDS: TORSEMIDE 20 MG TABLET (FP) PO SCH (15:37)
[2020-09-03 16:55] VITALS: BMI 35.9
[2020-09-03] MEDS: LACTULOSE 20 GM/30 ML UDC (FOR ORAL USE ONLY) PO SCH (22:30)
[2020-09-03] MEDS: LIDOCAINE PATCH REMOVAL MC SCH (22:31)
[2020-09-04] MEDS: LEVOTHYROXINE NA 50 MCG TABLET (FP) PO SCH (06:19)
[2020-09-04 09:03] LABS: HEMATOCRIT 25.2 % (32.4-45.2); HEMOGLOBIN 8.6 GM/dL (10.7-15.3); MCH 32.2 pg (25.7-33.7); MCHC 34.2 g/dl (32.0-36.0); MEAN CELL VOLUME 94.2 fl (80-96); MEAN PLT VOLUME 10.3 fl (7.5-11.1); PLATELET COUNT 58 K/MM3 (134-434); RBC 2.67 M/mm3 (3.60-5.2); RDW 15.4 % (11.6-15.6); WHITE BLOOD COUNT 3.5 K/mm3 (4.0-10.0)
[2020-09-04 09:26] LABS: POTASSIUM 4.8 mmol/L (3.5-5.1)
[2020-09-04 09:32] LABS: BLOOD UREA NITROGEN 82.5 mg/dL (7-18)
[2020-09-04 09:35] LABS: CALCIUM 9.7 mg/dL (8.5-10.1); CREATININE 2.4 mg/dL (0.55-1.3); MAGNESIUM 3.3 mg/dL (1.8-2.4)
[2020-09-04] MEDS ORDERED: PT OWN MED DRAWER 7, Y5N ONE (10:42)
[2020-09-04] MEDS: URSODIOL 300 MG CAPSULE PO SCH ×2 (10:46→21:55)
[2020-09-04] MEDS: PANTOPRAZOLE 40 MG TABLET PO SCH (10:46)
[2020-09-04] MEDS: TORSEMIDE 20 MG TABLET (FP) PO SCH (10:46)
[2020-09-04] MEDS: CARVEDILOL 12.5 MG TABLET (FP) PO SCH ×2 (10:46→21:55)
[2020-09-04] MEDS: LACTULOSE 20 GM/30 ML UDC (FOR ORAL USE ONLY) PO SCH (10:47)
[2020-09-04] MEDS: LIDOCAINE 5% TOPICAL PATCH TP SCH (10:47)
[2020-09-04] MEDS: NYSTATIN POWDER 100,000 UNITS/GM - 15 GM TOPICAL POWDER TP SCH ×2 (10:51→21:55)
[2020-09-04 14:03] LABS: ANISOCYTOSIS 2+; HELMET CELLS 0; HOWELL-JOLLY BODIES 0; MACROCYTOSIS 1+; OVALOCYTE 0; ROULEAU 0; SICKELED CELLS 0; TARGET CELLS 0; TEAR DROP CELLS 0; TOXIC GRANULATION 0
[2020-09-04 14:04] LABS: PLATELET ESTIMATE DECREASED
[2020-09-04] MEDS: LIDOCAINE PATCH REMOVAL MC SCH (21:55)
[2020-09-05] MEDS: LEVOTHYROXINE NA 50 MCG TABLET (FP) PO SCH (06:49)
[2020-09-05] MEDS: PANTOPRAZOLE 40 MG TABLET PO SCH (10:30)
[2020-09-05] MEDS: LIDOCAINE 5% TOPICAL PATCH TP SCH (10:31)
[2020-09-05] MEDS: URSODIOL 300 MG CAPSULE PO SCH ×2 (10:31→21:36)
[2020-09-05] MEDS: TORSEMIDE 20 MG TABLET (FP) PO SCH (10:31)
[2020-09-05] MEDS: LACTULOSE 20 GM/30 ML UDC (FOR ORAL USE ONLY) PO SCH (10:31)
[2020-09-05] MEDS: CARVEDILOL 12.5 MG TABLET (FP) PO SCH ×2 (10:31→21:36)
[2020-09-05] MEDS: NYSTATIN POWDER 100,000 UNITS/GM - 15 GM TOPICAL POWDER TP SCH ×2 (10:33→21:37)
[2020-09-05] MEDS: SIMETHICONE 80 MG TAB.CHEW (FP) PO PRN ×2 (15:51→21:36)
[2020-09-05] MEDS: MAG HYDROX/AL HYDROX/SIMETH 30 ML UNIT-DOSE CUP PO PRN (21:36)
[2020-09-05] MEDS: LIDOCAINE PATCH REMOVAL MC SCH (21:37)
[2020-09-06] MEDS: LEVOTHYROXINE NA 50 MCG TABLET (FP) PO SCH (06:06)
[2020-09-06] MEDS: MAG HYDROX/AL HYDROX/SIMETH 30 ML UNIT-DOSE CUP PO PRN ×2 (06:06→21:33)
[2020-09-06] MEDS: LACTULOSE 20 GM/30 ML UDC (FOR ORAL USE ONLY) PO SCH (09:58)
[2020-09-06] MEDS: LIDOCAINE 5% TOPICAL PATCH TP SCH (09:58)
[2020-09-06] MEDS: TORSEMIDE 20 MG TABLET (FP) PO SCH (09:58)
[2020-09-06] MEDS: PANTOPRAZOLE 40 MG TABLET PO SCH (09:58)
[2020-09-06] MEDS: CARVEDILOL 12.5 MG TABLET (FP) PO SCH ×2 (09:58→21:33)
[2020-09-06] MEDS: URSODIOL 300 MG CAPSULE PO SCH ×2 (09:58→21:33)
[2020-09-06] MEDS: NYSTATIN POWDER 100,000 UNITS/GM - 15 GM TOPICAL POWDER TP SCH ×2 (09:59→21:33)
[2020-09-06] MEDS: LIDOCAINE PATCH REMOVAL MC SCH (21:33)
[2020-09-06] MEDS: SIMETHICONE 80 MG TAB.CHEW (FP) PO PRN (21:33)
[2020-09-07] MEDS: MAG HYDROX/AL HYDROX/SIMETH 30 ML UNIT-DOSE CUP PO PRN (05:23)
[2020-09-07] MEDS: LEVOTHYROXINE NA 50 MCG TABLET (FP) PO SCH (05:59)
[2020-09-07 08:10] LABS: POTASSIUM 4.1 mmol/L (3.5-5.1)
[2020-09-07 08:14] LABS: CALCIUM 9.6 mg/dL (8.5-10.1)
[2020-09-07] MEDS ORDERED: RIFAXIMIN 550 MG TABLET (UD) PO SCH (10:00)
[2020-09-07] MEDS: CARVEDILOL 12.5 MG TABLET (FP) PO SCH (10:33)
[2020-09-07] MEDS: LACTULOSE 20 GM/30 ML UDC (FOR ORAL USE ONLY) PO SCH ×2 (10:33→10:41)
[2020-09-07] MEDS: URSODIOL 300 MG CAPSULE PO SCH (10:33)
[2020-09-07] MEDS: TORSEMIDE 20 MG TABLET (FP) PO SCH (10:33)
[2020-09-07] MEDS: NYSTATIN POWDER 100,000 UNITS/GM - 15 GM TOPICAL POWDER TP SCH (10:34)
[2020-09-07] MEDS: PANTOPRAZOLE 40 MG TABLET PO SCH (10:34)
[2020-09-07] MEDS: LIDOCAINE 5% TOPICAL PATCH TP SCH (10:34)
[2020-09-07 15:09] VITALS: BP 144/72; PULSE 81; TEMP 97.5
== END 2020-09-07 20:34 | DRG 433 ==
LOC: JER 13:02 → JERBED 15:34 → J7W 22:41
PROVIDERS: ADMIT Internal Medicine; ATTEND Internal Medicine
DX: K74.60 Unspecified cirrhosis of liver (principal); N17.9 Acute kidney failure, unspecified; E87.1 Hypo-osmolality and hyponatremia; D61.818 Other pancytopenia; I85.00 Esophageal varices without bleeding; R18.8 Other ascites; K74.3 Primary biliary cirrhosis; R74.01 Elevation of levels of liver transaminase levels; I10 Essential (primary) hypertension; E78.5 Hyperlipidemia, unspecified; D63.1 Anemia in chronic kidney disease; I48.0 Paroxysmal atrial fibrillation; T68.XXXA Hypothermia, initial encounter; E87.8 Other disorders of electrolyte and fluid balance, not elsewhere classified; W19.XXXA Unspecified fall, initial encounter; R91.8 Other nonspecific abnormal finding of lung field; K72.90 Hepatic failure, unspecified without coma; R16.1 Splenomegaly, not elsewhere classified; D69.6 Thrombocytopenia, unspecified; K21.9 Gastro-esophageal reflux disease without esophagitis; E87.70 Fluid overload, unspecified
CPT/HCPCS: 36415; 70450-TC; 70486-TC; 71045-TC-FY; 71250-TC; 72125-TC; 73630-TC-RT-FY; 74176-TC; 74181-TC; 76705-TC; 76775-TC; 76856-TC; 80048; 80053; 81003; 82105; 82140; 82272; 82378; 82550; 82565; 82728; 82977; 83540; 83550; 83605; 83690; 83735; 84100; 84300; 84443; 84484; 85025; 85027; 85045; 85610; 86140; 86301; 86850; 86900; 86901; 87077; 87086; 93005; 93010; 94640; 97116-GP; 97161-GP; 99285-25; C9803; J0131; P9047; Q0162; U0003